=== PATIENT | female | born 1955 | race African-American/Black ===

== ENCOUNTER 2018-01-16 05:15 | Inpatient (IN) | payer MEDICARE, MEDICAID, SELFPAY ==
[2018-01-09 10:27] VITALS: BP 126/72; PULSE 93; RESP 18; TEMP 36.9; O2SAT 98; BMI 44.9
[2018-01-09 11:06] LABS: Hematocrit 38.8 % (37-47); Hemoglobin 12.4 g/dl (12.0-15.0); Mean Corpuscular Hgb 29.9 pg (27.0-32.0); Mean Corpuscular Volume 93.5 fL (81-99); Mean Platelet Vol. 10.5 fl (6.2-12.0); Platelet Count 270 K/mm3 (150-450); RBC Distribution Width CV 13.7 % (11.6-14.6); RBC Distribution Width SD 45.2 fl (35.1-43.9); Red Blood Count 4.15 M/mm3 (4.2-5.4); White Blood Count 9.5 K/mm3 (4.4-11.0)
[2018-01-09 11:08] LABS: Scan Indicated on CBC? Y/N NO
[2018-01-09 11:16] LABS: International Normalized Ratio 1.1; Prothrombin Time (Protime)PT. 13.3 SECONDS (11.7-14.9)
[2018-01-09 11:17] LABS: Partial Thromboplast Time 29.7 Seconds (24.1-36.2)
[2018-01-09 11:34] LABS: AST(SGOT) 11 U/L (15-37); Alanine Aminotransfer ALT/SGPT 19 U/L (13-56); Albumin, Serum 3.2 g/dL (3.2-5.0); Alkaline Phosphatase 98 U/L (45-117); Anion Gap 11 (5-15); BUN 10 mg/dL (7-18); BUN/Creat Ratio 14.1 RATIO (10-20); Bilirubin, Direct 0.11 mg/dL (0.00-0.30); Calcium,Total 9.1 mg/dL (8.5-10.1); Chloride 104 mmol/L (98-107); Creatinine, Serum 0.71 mg/dL (0.55-1.02); EST Glomerular Filtration Rate 88 mL/min (>60); Est Glom Filt Rate - Afr Amer 107 mL/min (>60); Estimated Creatinine Clearance 63.31 ml/min; Globulin 4.5 g/dL (2.2-4.2); Glucose 115 mg/dL (74-106); Potassium 3.2 mmol/L (3.5-5.1); Protein, Total 7.7 g/dL (6.4-8.2); Sodium Level 141 mmol/L (136-145)
[2018-01-16] VITALS (30 sets, daily range): BP systolic 83–149; BP diastolic 53–112; PULSE 85–124; RESP 14–20; TEMP 36.3–37.8; O2SAT 4–100; BMI 44.9
[2018-01-16] MEDS: Celecoxib 200 MG Capsule PO (06:17)
[2018-01-16] MEDS: oxyCODONE HCl Cr 10 MG Tablet PO ×2 (06:17→22:04)
--- NOTE | 2018-01-16 06:41 | RAD_ITS ---
STUDY: X-RAY - RIGHT KNEE REASON FOR EXAM: Female, 62 years old. The patient is status post total knee replacement. TECHNIQUE: AP and lateral view(s) of the knee. COMPARISON: None. FINDINGS: Normal visualized distal femur. Normal visualized proximal tibia and fibula. Normal proximal tibiofibular articulation. The patient is status post total knee replacement. There is good alignment. Postoperative soft tissue changes. RAD/Knee 1 or 2 Views IMPRESSION: Total knee replacement. There is good alignment. Postoperative soft tissue changes. Electronically Signed: Antony Gallo MD at 13:46 EST Tel [phone], Service support ,
--- NOTE | 2018-01-16 06:41 | RAD_ITS ---
STUDY: X-RAY - LEFT KNEE REASON FOR EXAM: Female, 62 years old. Total knee replacement. TECHNIQUE: AP and lateral view(s) of the knee. COMPARISON: None. FINDINGS: Normal visualized distal femur. Normal visualized proximal tibia and fibula. Normal proximal tibiofibular articulation. The patient is status post total knee replacement. There is good alignment. Postoperative soft tissue changes. RAD/Knee 1 or 2 Views IMPRESSION: Total knee replacement. There is good alignment. Postoperative soft tissue changes. Electronically Signed: Antony Gallo MD at 13:46 EST Tel [phone], Service support ,
--- NOTE | 2018-01-16 07:15 | KNEE_PTH ---
PATIENT: EMANUEL REED LOC: PCU U#:[id number] AGE/SX: 62/F ROOM: [facility] RE01/16/[address]: Dr. Oamr Rodriguez DO : 1955 BED: 1 DIS: 01/20/2018 SPEC #: [id number] RECD: 01/16/18 11:47 STATUS: JEREMIAH REUte #: [id number] STEPHEN: 01/16/18 07:[address]: Nathan Torres DEPT: SURGICAL PATHOLOGY RECD BY: Negro Ghosh ENTERED: 01/16/18 13:34 SP TYPE: TOTAL KNEE OTHR DR: Out of Town Doctor Tissues: A - Knee, NOS B - Knee, NOS Procedures: Decalcification bone/plaque Surgery Specimen Level IV HEADER OPERATION: Total knee replacement bilateral PRE-OP DIAGNOSIS: Primary osteoarthritis of both knees, chronic pain of both knees TISSUE SUBMITTED: A ? Bone and tissue from left knee, B - Bone and tissue from right knee MICROSCOPIC DIAGNOSIS A. Bone and soft tissue of left knee, total knee resection: Severe degenerative joint disease. B. Bone and soft tissue of right knee, total knee resection: Severe degenerative joint disease. Mild synovial hyperplasia. AM:rocco 01/19/18 MICROSCOPIC DESCRIPTION Slides are reviewed. GROSS DESCRIPTION A - Received is one container designated bone and soft tissue left knee. The specimen consists of multiple fragments of posadas-yellow bone measuring in aggregate 15 x 14 x 2 cm. Also in the specimen container are multiple fragments of yellow-white soft tissue measuring in aggregate 6 x 5 x 1.8 cm. A number of bony fragments contain articular surfaces consistent with tibial plateau and femoral condyle and displaying prominent osteophyte formation, eburnation, and bone erosion. [employer] sections are submitted in two cassettes as follows: 1 - soft tissue, 2 - bone after decalcification. B - Received is one container designated bone and soft tissue right knee. The specimen consists of multiple fragments of posadas-yellow bone measuring in aggregate 15 x 14 x 2 cm. Also in the specimen container are multiple fragments of yellow-white soft tissue measuring in aggregate 9 x 6 x 2 cm. A number of bony fragments contain articular surfaces consistent with tibial plateau and femoral condyle and displaying prominent osteophyte formation, eburnation, and bone erosion. [employer] sections are submitted in two cassettes as follows: 1 - soft tissue, 2 - bone after decalcification. / AM:rocco 01/16/18 TC:5 CPT: 89192 x2, 25028 x2
[2018-01-16] MEDS: Cefazolin 2 GM in 0.9% Normal Saline 100 ML IV (07:16)
--- NOTE | 2018-01-16 10:31 | PCM.IMDPSTOP ---
Immediate Post-Op Note Date of Procedure: 01/16/18 Primary Surgeon/Physician: Nathan Torres DO mold repair technician: Brent Perry Pre-Operative Diagnosis: Bilateral osteoarthritis of the knees. Post-Operative Diagnosis: Same as above Surgery/Procedure Performed:: Bilateral total knee arthroplasties-[employer] triathlon system Description of Surgical Findings:: See dictation Estimated Blood Loss: 50 Specimen's removed: Bone cuts Type of Anesthesia:: General ASA Class: ASA2 Mod Systematic Disease - Admit VTE Documentation VTE Present on Admission: No VTE Mechan Device Prophylaxis: SCD's, Knee High ANGELINA Hose VTE Pharm Prophylaxis ordered?: Yes
--- NOTE | 2018-01-16 10:32 | PCM.OPRPT ---
Report of Operation Date of Procedure: 01/16/18 Pre-Operative Diagnosis: Bilateral osteoarthritis of the knees. Post-Operative Diagnosis: Same as above Surgery/Procedure Performed:: Bilateral total knee arthroplasties-[employer] system Description of Surgical Findings:: 62-year-old female with bilateral osteoarthritis. Patient requested bilateral total knee arthroplasties. Patient has a history of being a Jehovah witness and did not want any form of blood transfusion. Patient had failed conservative measures and elected for operative intervention. She was counseled and consented for the aforementioned procedures. She was met in the holding area where the bilateral lower extremities were marked and identified by the with surgeon. Patient was taken to the operating room in satisfactory condition with somewhat to place to identify patient up procedure and limb. She received 2 g of Ancef at the beginning of the procedure. Patient also received 1 g of TXA. She underwent a successful intubation. Then she had bilateral tourniquets placed in the proximal thighs using standard technique. She was then prepped and draped in the usual fashion bilaterally. The right lower extremity was then protected during the remaining portion of the procedure to include padding on the down leg to prevent any pressure ulcers. We then turned our attention to the left lower extremity to be the initial procedure. Left lower extremity was elevated Esmarch used for exsanguination tourniquet was increased to 250 mmHg for roughly 70 minutes. Patient had a midline incision made 3 finger breaths above the patella down to the tibial tubercle. She underwent a subsequent medial parapatellar approach. Patient had significant osteoarthritis grossly around the knee joint. At that point time standard and anterior fat pad resection was undertaken. We then performed a standard posterior medial release. Please note the patient had about a 10-15? flexion contracture of that left knee. We then turned our attention to the distal femoral cut. Intramedullary guide was placed using standard technique. We used a 6? valgus cut we elected to take 10 mm off the distal femur secondary to the flexion contracture. Standard cut was performed. We then turned our attention to sizing. And establishing extra rotation. We used 3? of external rotation per standard technique using the trans-epicondylar axis. The patient sized to a size 3 component. #3 cutting guide guide was then placed in standard cuts were performed. At that point time we turned our attention to the tibia. Tibial guide was set in anticipation of using a CR component with a CS Luci. Tibial guide was placed using standard technique. We took 2 mm off the medial side. PCL was preserved. At that point time the leg was brought to full extension and the excess menisci were resected. The posterior medial and posterior lateral corner geniculate vessels were then cauterized. 9 mm spacer was introduced and we showed excellent mechanical alignment and stability at 0 30 and 90? of flexion. We had no flexion extension gaps. At that point time trial component for the femur and tibia were then placed using standard technique a 3 tibial tray was placed and seated using standard technique. We then turned our attention to sizing the patella. It measured roughly 20 mm in overall thickness. We took off 8 to main a 12 mm polyester patella thickness and then sized to a 32 patella button. Standard drill holes were then placed. At that point time the femoral component was extracted. Tibial tray was removed and we keel punched to the tibia in anticipation of using a press-fit component. This was done using again standard technique. The wound was then copiously irrigated remove the excess debris. At that point time a #3 press-fit tibial tray was then impacted using standard technique. A #3 femoral component was then seated using standard technique again as well with press-fit. We sized to a 9 Luci felt we had a little bit better overall extension flexion gap with an 11 mm Luci. At that point time the wound was copious irrigated remove the excess debris from the tray and 11 CS Luci was then impacted. We then turned our attention to the patella. I elected to cement her patella standard technique was performed and the patella was cemented and fixed in place and allowed to cure. During that time we copious irrigated remove the knee multiple times. We then performed our standard closure after injecting the soft tissues with 50 cc of a periarticular joint cocktail using standard technique. We then closed the knee at 30? knee flexion with #1 Vicryl using oirklu-bq-zszeu technique. The proximal third was then closed with the leg in full extension again using jgyero-ux-tiniz technique. The soft tissues were reapproximated with 2-0 Vicryl running subicular Monocryl and Dermabond. We then placed a sterile dressing and compressive wrap over. Please note the tourniquet was let down at 70 minutes during final closure. I was scrubbed and available all times obvious E during the procedure. We had no drains or complications. We then turned our attention to the right knee. Sterile dressing was removed. We placed one additional ChloraPrep stick to the knee and allowed it to dry. We then placed our soft tissue markers using standard technique. Ioban was then placed. We then prepped and draped in the usual fashion. The right lower extremity was elevated Esmarch used for exsanguination and tourniquet was increased to 250 mmHg again for roughly 75 total minute times. Patient had a similar operative procedure done to the left knee as to the right. Anterior fat pad resected. Posterior medial corner release. Intramedullary guide was introduced perform our distal femoral cut. The patient had a very small flexion contracture to the sides we only took off 8 mm but continued our 6? valgus cut. The size again to a size 3 femoral component performed standard cuts using standard technique. Turned our attention to the tibia. Took 2 mm off the distal femur using standard technique. Upon completion removal of the remnant menisci and cauterization of the corners and protection of the PCL. The patient was sized again to size 3 3 and a 9 mm spacer. With excellent mechanical alignment no instability at 0 30 and 90? of knee flexion. At that point time we turned our attention the patella again the patella sized to a size 32 which is equivalent to the contralateral side. We prepped it in anticipation of using a cemented technique. Wounds were then copiously irrigated using standard technique. At that point time the tibial tray was impacted in preparation of a press-fit technique. In the femur prepared as well. A #3 tibial tray was then impacted using standard technique. #3 component then seated using standard technique. We re-trialed to a 9 but I felt an 11 again was a little bit better in overall flexion-extension balance. We subsequently impacted after copious irrigation and 11 CS Luci using standard technique. Then turned our attention to the patella. Patella was then cemented using standard technique and allowed to cure. We had excellent mechanical alignment no patellar maltracking. The wound was then copiously irrigated and injected again with another 50 cc of the joint cocktail in the periarticular soft tissues. We then closed using #1 Vicryl in tufmss-nc-xkuyh technique initially in 30? knee flexion in the proximal third and full extension. Soft tissues then reapproximated with 2-0 Vicryl running subicular Monocryl and Dermabond. Tourniquet was let down after roughly 75 minutes of overall time. The patient was then dressed bilaterally in the usual fashion to include a Silverlon dressing and Angelo wraps. I was scrubbed and available time during our procedure. There is no drains or complications. Implants included the [place] triathlon press-fit system again on bilateral knees we used #3 femur's #3 tibias 11 mm CS Luci's and 32 million mm patella buttons. Patient will be admitted to floor for 24 hours of IV antibiotics appropriate IV and p.o. pain medication DVT prophylaxis to include SCDs teds and 325 p.o. twice daily of aspirin with GI prophylaxis. Any major issues please contact me. parts salvager: Brent Perry Type of Anesthesia:: General Specimen's removed: Bone cuts Estimated Blood Loss (mL): 50 Grafts/Implants Used: Striker triathlon press-fit - Complications None - Admit VTE Documentation VTE Present on Admission: No VTE Mechan Device Prophylaxis: SCD's, Knee High ANGELINA Hose VTE Pharm Prophylaxis ordered?: Yes
--- NOTE | 2018-01-16 10:44 | OP.PCM_ITS ---
Report of Operation Date of Procedure: 01/16/18 Pre-Operative Diagnosis: Bilateral osteoarthritis of the knees. Post-Operative Diagnosis: Same as above Surgery/Procedure Performed:: Bilateral total knee arthroplasties-[employer] system Description of Surgical Findings:: 62-year-old female with bilateral osteoarthritis. Patient requested bilateral total knee arthroplasties. Patient has a history of being a Jehovah witness and did not want any form of blood transfusion. Patient had failed conservative measures and elected for operative intervention. She was counseled and consented for the aforementioned procedures. She was met in the holding area where the bilateral lower extremities were marked and identified by the with surgeon. Patient was taken to the operating room in satisfactory condition with somewhat to place to identify patient up procedure and limb. She received 2 g of Ancef at the beginning of the procedure. Patient also received 1 g of TXA. She underwent a successful intubation. Then she had bilateral tourniquets placed in the proximal thighs using standard technique. She was then prepped and draped in the usual fashion bilaterally. The right lower extremity was then protected during the remaining portion of the procedure to include padding on the down leg to prevent any pressure ulcers. We then turned our attention to the left lower extremity to be the initial procedure. Left lower extremity was elevated Esmarch used for exsanguination tourniquet was increased to 250 mmHg for roughly 70 minutes. Patient had a midline incision made 3 finger breaths above the patella down to the tibial tubercle. She underwent a subsequent medial parapatellar approach. Patient had significant osteoarthritis grossly around the knee joint. At that point time standard and anterior fat pad resection was undertaken. We then performed a standard posterior medial release. Please note the patient had about a 10-15? flexion contracture of that left knee. We then turned our attention to the distal femoral cut. Intramedullary guide was placed using standard technique. We used a 6? valgus cut we elected to take 10 mm off the distal femur secondary to the flexion contracture. Standard cut was performed. We then turned our attention to sizing. And establishing extra rotation. We used 3? of external rotation per standard technique using the trans-epicondylar axis. The patient sized to a size 3 component. #3 cutting guide guide was then placed in standard cuts were performed. At that point time we turned our attention to the tibia. Tibial guide was set in anticipation of using a CR component with a CS Luci. Tibial guide was placed using standard technique. We took 2 mm off the medial side. PCL was preserved. At that point time the leg was brought to full extension and the excess menisci were resected. The posterior medial and posterior lateral corner geniculate vessels were then cauterized. 9 mm spacer was introduced and we showed excellent mechanical alignment and stability at 0 30 and 90? of flexion. We had no flexion extension gaps. At that point time trial component for the femur and tibia were then placed using standard technique a 3 tibial tray was placed and seated using standard technique. We then turned our attention to sizing the patella. It measured roughly 20 mm in overall thickness. We took off 8 to main a 12 mm polyester patella thickness and then sized to a 32 patella button. Standard drill holes were then placed. At that point time the femoral component was extracted. Tibial tray was removed and we keel punched to the tibia in anticipation of using a press-fit component. This was done using again standard technique. The wound was then copiously irrigated remove the excess debris. At that point time a #3 press- fit tibial tray was then impacted using standard technique. A #3 femoral component was then seated using standard technique again as well with press- fit. We sized to a 9 Luci felt we had a little bit better overall extension flexion gap with an 11 mm Luci. At that point time the wound was copious irrigated remove the excess debris from the tray and 11 CS Luci was then impacted. We then turned our attention to the patella. I elected to cement her patella standard technique was performed and the patella was cemented and fixed in place and allowed to cure. During that time we copious irrigated remove the knee multiple times. We then performed our standard closure after injecting the soft tissues with 50 cc of a periarticular joint cocktail using standard technique. We then closed the knee at 30? knee flexion with #1 Vicryl using yjpqfw-bw-oqino technique. The proximal third was then closed with the leg in full extension again using evwiqk-pe-ftzhq technique. The soft tissues were reapproximated with 2-0 Vicryl running subicular Monocryl and Dermabond. We then placed a sterile dressing and compressive wrap over. Please note the tourniquet was let down at 70 minutes during final closure. I was scrubbed and available all times obvious E during the procedure. We had no drains or complications. We then turned our attention to the right knee. Sterile dressing was removed. We placed one additional ChloraPrep stick to the knee and allowed it to dry. We then placed our soft tissue markers using standard technique. Ioban was then placed. We then prepped and draped in the usual fashion. The right lower extremity was elevated Esmarch used for exsanguination and tourniquet was increased to 250 mmHg again for roughly 75 total minute times. Patient had a similar operative procedure done to the left knee as to the right. Anterior fat pad resected. Posterior medial corner release. Intramedullary guide was introduced perform our distal femoral cut. The patient had a very small flexion contracture to the sides we only took off 8 mm but continued our 6? valgus cut. The size again to a size 3 femoral component performed standard cuts using standard technique. Turned our attention to the tibia. Took 2 mm off the distal femur using standard technique. Upon completion removal of the remnant menisci and cauterization of the corners and protection of the PCL. The patient was sized again to size 3 3 and a 9 mm spacer. With excellent mechanical alignment no instability at 0 30 and 90? of knee flexion. At that point time we turned our attention the patella again the patella sized to a size 32 which is equivalent to the contralateral side. We prepped it in anticipation of using a cemented technique. Wounds were then copiously irrigated using standard technique. At that point time the tibial tray was impacted in preparation of a press-fit technique. In the femur prepared as well. A #3 tibial tray was then impacted using standard technique. #3 component then seated using standard technique. We re-trialed to a 9 but I felt an 11 again was a little bit better in overall flexion-extension balance. We subsequently impacted after copious irrigation and 11 CS Luci using standard technique. Then turned our attention to the patella. Patella was then cemented using standard technique and allowed to cure. We had excellent mechanical alignment no patellar maltracking. The wound was then copiously irrigated and injected again with another 50 cc of the joint cocktail in the periarticular soft tissues. We then closed using #1 Vicryl in gqgopc-ds-nhqvi technique initially in 30? knee flexion in the proximal third and full extension. Soft tissues then reapproximated with 2-0 Vicryl running subicular Monocryl and Dermabond. Tourniquet was let down after roughly 75 minutes of overall time. The patient was then dressed bilaterally in the usual fashion to include a Silverlon dressing and Angelo wraps. I was scrubbed and available time during our procedure. There is no drains or complications. Implants included the [place] triathlon press-fit system again on bilateral knees we used #3 femur's #3 tibias 11 mm CS Luci's and 32 million mm patella buttons. Patient will be admitted to floor for 24 hours of IV antibiotics appropriate IV and p.o. pain medication DVT prophylaxis to include SCDs teds and 325 p.o. twice daily of aspirin with GI prophylaxis. Any major issues please contact me. business supervisor: Brent Perry Type of Anesthesia:: General Specimen's removed: Bone cuts Estimated Blood Loss (mL): 50 Grafts/Implants Used: Striker triathlon press-fit - Complications None - Admit VTE Documentation VTE Present on Admission: No VTE Mechan Device Prophylaxis: SCD's, Knee High ANGELINA Hose VTE Pharm Prophylaxis ordered?: Yes
--- NOTE | 2018-01-16 10:49 | CASEMGMT ---
Received call from Dr. Torres that patient is wanting to discharge to TCU when appropriate. RN CM updated MICAH Montes regarding request for TCU.
[2018-01-16] MEDS: Ketorolac 15 MG/ML Vial IV (11:23)
[2018-01-16] MEDS: Ipratropium/Albuterol Sulfate 3 ML AMPUL.NEB INHALATION (11:49)
[2018-01-16] MEDS: Lactated Ringers 1,000 ML 75 ML IV (16:18)
[2018-01-16] MEDS: Cefazolin 1 GM/50 ML BAG IV ×2 (16:50→22:38)
[2018-01-16] MEDS: 0.9% NaCl Peripheral Flush Adult/Peds IV (18:22)
[2018-01-16] MEDS: Acetaminophen 500 MG Tablet 1000 MG PO (22:04)
[2018-01-16] MEDS: Senna/Docusate Sodium 1 Tablet 2 TABLET PO (22:05)
[2018-01-17] VITALS (7 sets, daily range): BP systolic 103–161; BP diastolic 58–78; PULSE 105–128; RESP 14–16; TEMP 36.1–37.7; O2SAT 92–98
[2018-01-17 05:48] LABS: Hematocrit 31.5 % (37-47); Hemoglobin 9.7 g/dl (12.0-15.0); Mean Corp Hgb Conc 30.8 g/gl (32-36); Mean Corpuscular Hgb 29.7 pg (27.0-32.0); Mean Corpuscular Volume 96.3 fL (81-99); Platelet Count 177 K/mm3 (150-450); RBC Distribution Width CV 14.2 % (11.6-14.6); RBC Distribution Width SD 49.5 fl (35.1-43.9); Red Blood Count 3.27 M/mm3 (4.2-5.4); White Blood Count 9.8 K/mm3 (4.4-11.0)
[2018-01-17 06:06] LABS: Anion Gap 8 (5-15); BUN 9 mg/dL (7-18); BUN/Creat Ratio 14.5 RATIO (10-20); Calcium,Total 8.2 mg/dL (8.5-10.1); Chloride 104 mmol/L (98-107); Creatinine, Serum 0.62 mg/dL (0.55-1.02); EST Glomerular Filtration Rate 103 mL/min (>60); Est Glom Filt Rate - Afr Amer 124 mL/min (>60); Glucose 114 mg/dL (74-106); Potassium 3.6 mmol/L (3.5-5.1); Sodium Level 142 mmol/L (136-145)
[2018-01-17 06:16] LABS: Scan Indicated on CBC? Y/N NO
[2018-01-17] MEDS: Lactated Ringers 1,000 ML 75 ML IV (06:24)
[2018-01-17] MEDS: Acetaminophen 500 MG Tablet 1000 MG PO ×3 (06:24→21:58)
--- NOTE | 2018-01-17 07:44 | PCM.PN.ORT ---
Subjective: Postop day 1 status post bilateral total knee arthroplasties. Patient with moderate pain issues at this time. Patient was unable to have a spinal anesthesia and did not have any of the perioperative blocks. Made an attempt to use of OxyIR but does not seem to be tolerating well. Patient's family is concerned about her being lethargic which may be a result of her pain medication to try to control her at this time. Patient reportedly has better outcomes with Dilaudid which we will convert to at this time. Also told family that I would place a pain management consult. Patient has not been up to chair at this time. Still laying flat in bed and needs to be mobilized little bit better. Signs reviewed. Patient had low-grade temps probably most likely postop atelectasis. Laboratory values appear stable. Patient is a history of being a Jehovah witness. - Physical Exam General: Alert, Oriented x3, Cooperative Musculoskeletal: - - Patient remains distally neurovascular intact. EHL anterior gastrocsoleus peroneals quads hamstrings appear to be 5 out of 5. No calf pain negative Homans. SCDs teds in place. X-rays reviewed show hardware otherwise well seated well-placed. Vital Signs Temp Pulse Resp BP Pulse Ox 99.8 F H 105 H 14 110/59 L 92 01/17/18 05:48 01/17/18 05:48 01/17/18 05:48 01/17/18 05:48 01/17/18 05:48 Oxygen Flow Rate (L/min) 3 Oxygen Delivery Method Nasal Cannula Weight: 245 lb 5.992 oz Body Mass Index (BMI) 44.9 Intake and Output for Last 24 Hours 01/15/18 01/16/18 01/17/18 23:59 23:59 23:59 Intake Total 3517 / 3517 726 / 726 Output Total 400 / 400 Balance 3517 / 3517 326 / 326 Laboratory Tests Past 24 Hrs 01/17/18 01/17/18 05:20 05:20 WBC 9.8 RBC 3.27 L Hgb 9.7 L Hct 31.5 L MCV 96.3 MCH 29.7 MCHC 30.8 L RDW 14.2 RDW Differential 49.5 H Plt Count 177 MPV 10.0 Sodium 142 Potassium 3.6 Chloride 104 Carbon Dioxide 30.0 Anion Gap 8 BUN 9 Creatinine 0.62 Estim Creat Clear Calc 72.50 Est GFR (MDRD) Af Amer 124 Est GFR (MDRD) Non-Af 103 BUN/Creatinine Ratio 14.5 Glucose 114 H Calcium 8.2 L Assessment/Plan Assessment: Postop day 1 status post bilateral total knee arthroplasties. Pain management issues at this time. Plan: Case management has been consulted to get patient placed in the transitional care unit. I will consult Dr. Franklin from pain management in order to help manage her pain more effectively. At this point I am going to go ahead and DC the OxyIR and the OxyContin. I will place the patient on Dilaudid 2-4 mg p.o. every 4 hours. Encourage patient sitting upright in the bed. This did not help her overall pulmonary function. She needs to be using the incentive spirometer more aggressively. I do not want the patient getting pneumonia as result of respiratory depression associated with narcotic usage. The patient needs to be sitting in a chair at some point today and bending her knees. It is a race between her gaining motion. I had rather than have the patient in pain and moving rather than being lethargic and not moving. We will continue to follow at this time. The patient remains lethargic I will consider consultation by medicine.
[2018-01-17] MEDS: HYDROmorphone 1 MG/ML Syringe IV (08:26)
[2018-01-17] MEDS: 0.9% NaCl Peripheral Flush Adult/Peds IV (08:26)
[2018-01-17] MEDS: Multivitamins,Therapeutic Tablet 1 TABLET PO (09:03)
[2018-01-17] MEDS: Ascorbic Acid 500 MG Tablet 1000 MG PO (09:03)
[2018-01-17] MEDS: Gabapentin 300 MG Capsule PO ×3 (09:04→21:58)
[2018-01-17] MEDS: Iron Polysaccharide Complex 150 MG CAPSULE PO (09:05)
[2018-01-17] MEDS: Aspirin 325 MG Tablet PO ×2 (09:05→21:57)
[2018-01-17] MEDS: HYDROmorphone 2 MG TABLET PO (09:06)
--- NOTE | 2018-01-17 09:20 | CASEMGMT ---
Social Work Note Call placed to [facility] to confirm that there is a bed for the pt. Anticipate discharge Monday, 01/19. Transfer to ECF forms on chart for physician to complete. SW to continue to follow and assist with discharge planning. Plan: TCU for rehabilitation. Mary Montes, INSPECTOR PLATING, [employer]OCOA BEAN CLEANER
--- NOTE | 2018-01-17 10:10 | CASEMGMT ---
Social Work Note Face to face with the pt to update on bed availability on TCU and anticipated discharge date of Monday, 01/19. Plan: TCU for rehabilitation. Mary Montes MSW, SUPERVISOR SHEET MANUFACTURING
[2018-01-17] MEDS: Escitalopram Oxalate 10 MG Tablet PO (10:55)
[2018-01-17] MEDS: Famotidine 20 MG Tablet PO (10:55)
[2018-01-17] MEDS: Senna/Docusate Sodium 1 Tablet 2 TABLET PO ×2 (10:55→21:57)
[2018-01-17] MEDS: hydroCHLOROthiazide 25 MG Tablet PO (10:55)
--- NOTE | 2018-01-17 14:21 | NURSING ---
Student nurse documentation reviewed by this RN.
[2018-01-17] MEDS: diazePAM 2 MG Tablet PO (15:14)
--- NOTE | 2018-01-17 15:31 | PCA ---
PATIENT PUT CALL LIGHT ON STATING SHE WANTED TO GO FROM THE CHAIR BACK TO BED TO REST. FAMILY WAS IN WITH PATIENT. I CALLED THE OTHER COMPUTER SYSTEMS ARCHITECT DIMITRIS TO COME HELP THAT SHE WAS A MAX X2 ASSIST. WE HAD PATIENT SCOOT HER BOTTOM UP TO FRONT OF CHAIR. HAD ONE COMPUTER SYSTEMS ARCHITECT ON ONE SIDE AND THE OTHER ON THE OTHER SIDE. TOLD PATIENT TO USE HER ARMS TO PUSH HERSELF OUT OF CHAIR ONCE SHE STOOD UP WE TOLD HER TO GRAB AHOLD OF THE WALKER. TOLD THE PATIENT THAT SHE NEEDED TO TRY TO STAND UP STRAIGHT SHE COULD. PATIENT KEPT LEANING OVER ON HER WALKER WITH HER FOREARMS WHERE HER HANDS SHOULD OF WENT WITH HER BOTTOM STICKING OUT. WE BOTH INFORMED HER THAT SHE NEEDED TO STAND UP STRAIGHT SHE COULD AND NOT LEAN ON HER WALKER LIKE THAT CAUSE IT COULD CAUSE HER TO FALL. TOLD HER THAT SHE NEEDED TO TAKE A STEP TO THE RIGHT SIDE AND THEN STEP WITH HER OTHER LEG THE SAME WAY TO MOVE OVER TO THE BED. THE PATIENT DID THAT BUT THEN LEANED ON HER WALKER AGAIN AND WASN'T FOLLOWING INSTRUCTIONS. I MYSELF WHILE DIMITRIS WAS HOLDING ONTO HER I SCOOTED THE BED CLOSE I COULD TO HER BOTTOM FOR HER TO SIT THAT THE PATIENT FAILED TO FOLLOW INSTRUCTIONS AND WAS GETTING VERY TIRED. ONCE WE GOT HER TO SIT ON THE BED I ASSISTED HER BACK AND SHOULDERS AND DIMITRIS GRABBED BOTH OF HER LEGS AND SWING HER UP IN THE BED.. THEN HAD THE PATIENT GRAB A HOLD OF THE TRAPEZE BAR AND STRAIGHTEN HER UPPER HALF IN THE BED WHILE WE STRAIGHTENED UP HER LEGS. MADE SURE HER LEGS WERE NOT TURNING OUTWARD AND MADE HER COMFORTABLE. FAMILY TOLD US THAT WENT TOTALLY DIFFERENT THEN THERAPY AND THAT THEY DIDNT LIKE THE WAY WE DID IT. DIMITRIS EXPLAIGNED TO THEM THAT WE DO IT THE SAME WAY WITH EVERYONE. I LEFT THE ROOM TO LET THE NURSE KAYLAN KNOW SHE NEEDED PAIN MEDS. AFTER I LEFT THE ROOM DIMITRIS PUT HER ICE PACKS ON THE LEGS AND FAMILY TOLD HER THAT THEY DIDNT WANT US AIDES TO GET HER OUT OF THE BED AGAIN ONLY THERAPY. CAUSE WE DIDNT DO IT THE WAY THERAPY DID.
[2018-01-17] MEDS: oxyCODONE 5 MG Tablet PO ×2 (16:28→21:58)
[2018-01-18] VITALS (16 sets, daily range): BP systolic 76–124; BP diastolic 49–64; PULSE 120–137; RESP 18–24; TEMP 36.7–38.3; O2SAT 92–97
--- NOTE | 2018-01-18 02:24 | RAD_ITS ---
STUDY: X-RAY CHEST REASON FOR EXAM: Female, 62 years old. Fever TECHNIQUE: Single AP portable view of the chest. COMPARISON: None. FINDINGS: Mild patchy airspace opacification at the right lung base, partially obscuring the right hemidiaphragm. The lungs are clear and expanded. There is no demonstrated pleural abnormality. Normal size heart. Normal mediastinum and navin. Normal visualized pulmonary arteries. Normal visualized aortic arch and descending thoracic aorta. Normal visualized thoracic spine. Normal visualized ribs, clavicles, and shoulders. There is no demonstrated abnormality of the visualized soft tissue structures of the upper abdomen. RAD/Chest 1 View (Portable) IMPRESSION: Right basilar atelectasis versus infiltrate. Electronically Signed: David Cobb MD at 3:00 EST Tel , Service support ,
--- NOTE | 2018-01-18 02:49 | PCM.CONS.GEN ---
Problem List (1) Osteoarthritis Status: Chronic (2) Status post bilateral knee replacements Status: Acute (3) Depression Status: Chronic (4) Hypertension Status: Chronic Reason for Consult Date of Consultation: 01/18/18 Reason for Consultation: Fever, tachycardia. This was an urgent consultation, physician who was on-call for the primary admitting physician did not call me although it was an urgent consultation. History of Present Illness: The patient is a 62 year old F with past medical history as mentioned above who underwent elective bilateral total knee arthroplasties on January 16, 2018 for osteoarthritis of the both knees and I am seeing this patient in consultation for fever and tachycardia. According to nursing staff, patient's heart rate has been up to 130s and she has been having spikes of low-grade fever. Patient seen and examined. Her only complaint was bilateral knee pain secondary to surgery and she was not able to provide details about that pain. She is sleepy but easily arousable and she was oriented. She denied sore throat, nasal sinus congestion. She denied cough or sputum production. She denied abdominal pain, nausea or vomiting. Denied constipation or diarrhea. She denies urinary symptoms. She has history of hypertension and he has been on HCTZ which seemed to be under control. She has history of depression and she has been on Lexapro and Effexor. She had a history of osteoarthritis, was on Voltaren twice daily before her surgery and now she is status post bilateral knee arthroplasties as mentioned above. At this time, she is tachycardic, temperature 99.9?F, blood pressure stable, pulse ox is 94% on 3 L. Her routine blood work from January 17, 2018 reviewed and was remarkable for acute anemia likely because of blood loss during surgery and hemodilution. Stat CBC, BMP, chest x-ray ordered. CBC revealed leukocytosis and anemia. BMP was unremarkable. Chest x-ray revealed possible right lung base infiltrate. Her lactic acid was normal. She will be treated as a case of probable community-acquired pneumonia because this pneumonia developed within 48 hours of admission. Past Medical History Past Medical History (Chronic Problems): Chronic Problems (Last Updated 12/25/17 @ 16:12 by Mario Chatterjee) Osteoarthritis (Chronic) Depression (Chronic) Hypertension (Chronic) Allergies No Known Allergies Allergy (Verified 01/09/18 10:23) Home Medications: Ambulatory Orders Medication Instructions Recorded Hydrochlorothiazide [Hctz] 25 mg PO DAILY 09/28/17 Venlafaxine XR [Effexor Xr] 75 mg PO DAILY 09/28/17 Venlafaxine XR [Effexor Xr] 150 mg PO DAILY 09/28/17 Diclofenac [Voltaren] 75 mg PO BIDCM 01/09/18 Escitalopram Oxalate [Lexapro] 10 mg PO DAILY 01/09/18 potassium chloride 20 mEq oral 20 meq PO BID #14 packet 01/10/18 packet Surgical History: total knee arthroplasty Psychiatric History: No pertinent psych hx WOOL PULLER History: No pertinent WOOL PULLER history Lives: Spouse/ Significant Other Smoking Status: Never smoker Alcohol: None Drugs: None - *Family History Paternal History Items: Heart Disease Sibling History Items: Cancer, Heart Disease Review of Systems Constitutional: Denies: Anorexia, Chills, Fever, Weakness Eyes: Denies: Blurred vision, Double vision, Drainage, Redness HEENT: Denies: Difficulty Hearing, Ear Pain, Eye Pain, Nasal Congestion, Sore Throat Cardiovascular: Denies: Chest Pain, Chest Pressure, Edema, Heaviness, Palpitations, Syncope Respiratory: Denies: Cough, Pleuritic Pain, Shortness of Breath, Sputum production, Wheezing Gastrointestinal: Denies: Abdominal Pain, Constipation, Diarrhea, Nausea, Vomiting Genitourinary: Denies: Dysuria, Frequency, Hematuria Musculoskeletal: Reports: Joint Pain. Denies: Arm Pain, Back Pain, Foot Pain Skin: Denies: Dryness, Rash Neurological: Denies: Balance problems, Double vision, Change in Speech, Focal weakness, Headaches, Incoordination Psychiatric: Denies: Anxiety, Depression Endocrine: Denies: Change in Body Habitus, Polydipsia Patient Problems: Active and Suspected Problems (Last Updated 12/25/17 @ 16:12 by Mario Chatterjee) Status post bilateral knee replacements (Acute) - Physical Exam General: Alert, Cooperative, No apparent distress, Lethargic HEENT: Atraumatic, PERRLA, EOMI Oral: No Gingival or Mucosal Lesions/ Ulcerations, Dry Mucosa Neck: Supple, No JVD, Negative Carotid Bruits, Trachea Midline, Thyroid Normal Size and Texture Lungs: Clear to auscultation, No wheeze, No rales, Diminished, - - Decreased breath sounds bilateral, more at the bases, rhonchi. Cardiovascular: Regular rate, Regular Rhythm, Normal S1, Normal S2, PMI Normal, Tachycardic Abdomen: Bowel Sounds Present, Soft, Non Tender, Non-Distended, No Hepato-splenomegaly, Obese Extremities: No clubbing, No cyanosis, No edema Skin: No rashes, No breakdown Lymphatic: No Cervical, Supraclavicular, or Inguinal Adenopathy Neurological: Cranial nerves II-XII grossly intact, Neuro grossly intact Psych/Mental Status: Flat Affect Vital Signs Temp Pulse Resp BP Pulse Ox 99.9 F H 133 H 24 H 121/61 H 94 01/18/18 01:40 01/18/18 01:40 01/18/18 01:40 01/18/18 01:40 01/18/18 01:40 Oxygen Flow Rate (L/min) 3 Oxygen Delivery Method Nasal Cannula Weight: 245 lb 5.992 oz Body Mass Index (BMI) 44.9 Intake and Output for Last 24 Hours 01/16/18 01/17/18 01/18/18 23:59 23:59 23:59 Intake Total 3517 / 3517 726 / 726 100 / 100 Output Total 400 / 400 Balance 3517 / 3517 326 / 326 100 / 100 Laboratory Tests Past 24 Hrs 01/17/18 01/17/18 05:20 05:20 WBC 9.8 RBC 3.27 L Hgb 9.7 L Hct 31.5 L MCV 96.3 MCH 29.7 MCHC 30.8 L RDW 14.2 RDW Differential 49.5 H Plt Count 177 MPV 10.0 Sodium 142 Potassium 3.6 Chloride 104 Carbon Dioxide 30.0 Anion Gap 8 BUN 9 Creatinine 0.62 Estim Creat Clear Calc 72.50 Est GFR (MDRD) Af Amer 124 Est GFR (MDRD) Non-Af 103 BUN/Creatinine Ratio 14.5 Glucose 114 H Calcium 8.2 L Laboratory Tests 01/18/18 01/18/18 01/18/18 Range/Units 02:50 02:50 02:50 WBC 15.5 H (4.4-11.0) K/mm3 RBC 3.06 L (4.2-5.4) M/mm3 Hgb 9.4 L (12.0-15.0) g/dl Hct 29.6 L (37-47) % MCV 96.7 (81-99) fL MCH 30.7 (27.0-32.0) pg MCHC 31.8 L (32-36) g/gl RDW 13.7 (11.6-14.6) % RDW Differential 45.3 H (35.1-43.9) fl Plt Count 170 (150-450) K/mm3 MPV 10.2 (6.2-12.0) fl Immature Gran % (Auto) 0.600 (0.0-0.9) % Neut % (Auto) 72.5 H (47-70) % Lymph % (Auto) 12.3 L (19-41) % [place] % (Auto) 10.6 H (0-10) % Eos % (Auto) 3.9 (0-5) % Baso % (Auto) 0.1 (0-1) % Absolute Neuts (auto) 11.2 H (2.0-7.7) X10^3/uL Absolute Lymphs (auto) 1.91 (0.83-4.51) X10^3/ul Total Counted Not Reportable Differential Comment SCANNED Diff Path Review March Sodium 137 (136-145) mmol/L Potassium 3.7 (3.5-5.1) mmol/L Chloride 102 (98-107) mmol/L Carbon Dioxide 30.0 (21.0-32.0) mmol/L Anion Gap 5 (5-15) BUN 9 (7-18) mg/dL Creatinine 0.70 (0.55-1.02) mg/dL Estim Creat Clear Calc 64.22 ml/min Est GFR (MDRD) Af Amer 108 (>60) mL/min Est GFR (MDRD) Non-Af 89 (>60) mL/min BUN/Creatinine Ratio 12.8 (10-20) RATIO Glucose 128 H (74-106) mg/dL Lactic Acid 1.1 (0.4-2.0) mmol/L Calcium 8.5 (8.5-10.1) mg/dL 01/17/18 01/17/18 Range/Units 05:20 05:20 WBC 9.8 (4.4-11.0) K/mm3 RBC 3.27 L (4.2-5.4) M/mm3 Hgb 9.7 L (12.0-15.0) g/dl Hct 31.5 L (37-47) % MCV 96.3 (81-99) fL MCH 29.7 (27.0-32.0) pg MCHC 30.8 L (32-36) g/gl RDW 14.2 (11.6-14.6) % RDW Differential 49.5 H (35.1-43.9) fl Plt Count 177 (150-450) K/mm3 MPV 10.0 (6.2-12.0) fl Immature Gran % (Auto) (0.0-0.9) % Neut % (Auto) (47-70) % Lymph % (Auto) (19-41) % [place] % (Auto) (0-10) % Eos % (Auto) (0-5) % Baso % (Auto) (0-1) % Absolute Neuts (auto) (2.0-7.7) X10^3/uL Absolute Lymphs (auto) (0.83-4.51) X10^3/ul Total Counted Differential Comment Diff Path Review Sodium 142 (136-145) mmol/L Potassium 3.6 (3.5-5.1) mmol/L Chloride 104 (98-107) mmol/L Carbon Dioxide 30.0 (21.0-32.0) mmol/L Anion Gap 8 (5-15) BUN 9 (7-18) mg/dL Creatinine 0.62 (0.55-1.02) mg/dL Estim Creat Clear Calc 72.50 ml/min Est GFR (MDRD) Af Amer 124 (>60) mL/min Est GFR (MDRD) Non-Af 103 (>60) mL/min BUN/Creatinine Ratio 14.5 (10-20) RATIO Glucose 114 H (74-106) mg/dL Lactic Acid (0.4-2.0) mmol/L Calcium 8.2 L (8.5-10.1) mg/dL Assessment/Plan Active and Suspected Problems (Last Updated 12/25/17 @ 16:12 by Mario Chatterjee) Status post bilateral knee replacements (Acute) This is a 62 years old female patient admitted for elective bilateral knee arthroplasties for bilateral knee osteoarthritis and I was consulted to see the patient urgently for fever and tachycardia although the physician who was on-call for the primary admitting physician did not call me for this consult. #1 probable right lower lung community-acquired pneumonia/sepsis: This is based on fever, tachycardia, leukocytosis and suspected infiltrate on chest x-ray. She is tachycardic, having spikes of low-grade fever, blood pressure stable. Lactic acid was normal. Plan: Start IV Levaquin, add IV Zosyn to cover for gram-negative organisms, albuterol every 4 hours, incentive spirometer, urinalysis, urine culture. #2 status post bilateral knee arthroplasties: That was done for bilateral knee osteoarthritis, postoperative day 2. Patient complains of bilateral knee pain. She is on IV hydromorphone as well as OxyIR as needed for pain. Orthopedic surgery is managing. #3 postoperative anemia: Her baseline hemoglobin is normal. Hemoglobin came down from 12.4 g/dL down to 9.7 g/dL. At this time, no evidence of active bleeding. This is likely because of blood loss during surgery and hemodilution. Plan to monitor CBC. #4 hypertension: Blood pressure stable, continue HCTZ. #5 depression: Continue Lexapro. #6 DVT prophylaxis: She is on full dose of aspirin twice daily. This note was generated with iLive dictation software. It may contain incorrect words, spelling, and punctuation that were not noted in checking the note before signing. Code Visit Inpatient E&M: 79754 Init Hosp L2
--- NOTE | 2018-01-18 02:55 | CON.PCM_ITS ---
Problem List (1) Osteoarthritis Status: Chronic (2) Status post bilateral knee replacements Status: Acute (3) Depression Status: Chronic (4) Hypertension Status: Chronic Reason for Consult Date of Consultation: 01/18/18 Reason for Consultation: Fever, tachycardia. This was an urgent consultation, physician who was on-call for the primary admitting physician did not call me although it was an urgent consultation. History of Present Illness: The patient is a 62 year old F with past medical history as mentioned above who underwent elective bilateral total knee arthroplasties on January 16, 2018 for osteoarthritis of the both knees and I am seeing this patient in consultation for fever and tachycardia. According to nursing staff, patient's heart rate has been up to 130s and she has been having spikes of low-grade fever. Patient seen and examined. Her only complaint was bilateral knee pain secondary to surgery and she was not able to provide details about that pain. She is sleepy but easily arousable and she was oriented. She denied sore throat, nasal sinus congestion. She denied cough or sputum production. She denied abdominal pain, nausea or vomiting. Denied constipation or diarrhea. She denies urinary symptoms. She has history of hypertension and he has been on HCTZ which seemed to be under control. She has history of depression and she has been on Lexapro and Effexor. She had a history of osteoarthritis, was on Voltaren twice daily before her surgery and now she is status post bilateral knee arthroplasties as mentioned above. At this time, she is tachycardic, temperature 99.9?F, blood pressure stable, pulse ox is 94% on 3 L. Her routine blood work from January 17, 2018 reviewed and was remarkable for acute anemia likely because of blood loss during surgery and hemodilution. Stat CBC, BMP, chest x-ray ordered. CBC revealed leukocytosis and anemia. BMP was unremarkable. Chest x-ray revealed possible right lung base infiltrate. Her lactic acid was normal. She will be treated as a case of probable community-acquired pneumonia because this pneumonia developed within 48 hours of admission. Past Medical History Past Medical History (Chronic Problems): Chronic Problems (Last Updated 12/25/17 @ 16:12 by Mario Chatterjee) Osteoarthritis (Chronic) Depression (Chronic) Hypertension (Chronic) Allergies No Known Allergies Allergy (Verified 01/09/18 10:23) Home Medications: Ambulatory Orders Medication Instructions Recorded Hydrochlorothiazide [Hctz] 25 mg PO DAILY 09/28/17 Venlafaxine XR [Effexor Xr] 75 mg PO DAILY 09/28/17 Venlafaxine XR [Effexor Xr] 150 mg PO DAILY 09/28/17 Diclofenac [Voltaren] 75 mg PO BIDCM 01/09/18 Escitalopram Oxalate [Lexapro] 10 mg PO DAILY 01/09/18 potassium chloride 20 mEq oral 20 meq PO BID #14 packet 01/10/18 packet Surgical History: total knee arthroplasty Psychiatric History: No pertinent psych hx [employer]ELOP[employer] History: No pertinent [employer]ELOP[employer] history Lives: Spouse/ Significant Other Smoking Status: Never smoker Alcohol: None Drugs: None - *Family History Paternal History Items: Heart Disease Sibling History Items: Cancer, Heart Disease Review of Systems Constitutional: Denies: Anorexia, Chills, Fever, Weakness Eyes: Denies: Blurred vision, Double vision, Drainage, Redness HEENT: Denies: Difficulty Hearing, Ear Pain, Eye Pain, Nasal Congestion, Sore Throat Cardiovascular: Denies: Chest Pain, Chest Pressure, Edema, Heaviness, Palpitations, Syncope Respiratory: Denies: Cough, Pleuritic Pain, Shortness of Breath, Sputum production, Wheezing Gastrointestinal: Denies: Abdominal Pain, Constipation, Diarrhea, Nausea, Vomiting Genitourinary: Denies: Dysuria, Frequency, Hematuria Musculoskeletal: Reports: Joint Pain. Denies: Arm Pain, Back Pain, Foot Pain Skin: Denies: Dryness, Rash Neurological: Denies: Balance problems, Double vision, Change in Speech, Focal weakness, Headaches, Incoordination Psychiatric: Denies: Anxiety, Depression Endocrine: Denies: Change in Body Habitus, Polydipsia Patient Problems: Active and Suspected Problems (Last Updated 12/25/17 @ 16:12 by Mario Chatterjee) Status post bilateral knee replacements (Acute) - Physical Exam General: Alert, Cooperative, No apparent distress, Lethargic HEENT: Atraumatic, PERRLA, EOMI Oral: No Gingival or Mucosal Lesions/ Ulcerations, Dry Mucosa Neck: Supple, No JVD, Negative Carotid Bruits, Trachea Midline, Thyroid Normal Size and Texture Lungs: Clear to auscultation, No wheeze, No rales, Diminished, - - Decreased breath sounds bilateral, more at the bases, rhonchi. Cardiovascular: Regular rate, Regular Rhythm, Normal S1, Normal S2, PMI Normal, Tachycardic Abdomen: Bowel Sounds Present, Soft, Non Tender, Non-Distended, No Hepato- splenomegaly, Obese Extremities: No clubbing, No cyanosis, No edema Skin: No rashes, No breakdown Lymphatic: No Cervical, Supraclavicular, or Inguinal Adenopathy Neurological: Cranial nerves II-XII grossly intact, Neuro grossly intact Psych/Mental Status: Flat Affect Vital Signs Temp Pulse Resp BP Pulse Ox 99.9 F H 133 H 24 H 121/61 H 94 01/18/18 01:40 01/18/18 01:40 01/18/18 01:40 01/18/18 01:40 01/18/18 01:40 Oxygen Flow Rate (L/min) 3 Oxygen Delivery Method Nasal Cannula Weight: 245 lb 5.992 oz Body Mass Index (BMI) 44.9 Intake and Output for Last 24 Hours 01/16/18 01/17/18 01/18/18 23:59 23:59 23:59 Intake Total 3517 / 3517 726 / 726 100 / 100 Output Total 400 / 400 Balance 3517 / 3517 326 / 326 100 / 100 Laboratory Tests Past 24 Hrs 01/17/18 01/17/18 05:20 05:20 WBC 9.8 RBC 3.27 L Hgb 9.7 L Hct 31.5 L MCV 96.3 MCH 29.7 MCHC 30.8 L RDW 14.2 RDW Differential 49.5 H Plt Count 177 MPV 10.0 Sodium 142 Potassium 3.6 Chloride 104 Carbon Dioxide 30.0 Anion Gap 8 BUN 9 Creatinine 0.62 Estim Creat Clear Calc 72.50 Est GFR (MDRD) Af Amer 124 Est GFR (MDRD) Non-Af 103 BUN/Creatinine Ratio 14.5 Glucose 114 H Calcium 8.2 L Laboratory Tests 3 01/18/18 01/18/18 01/18/18 Range/Units 02:50 02:50 02:50 WBC 15.5 H (4.4-11.0) K/mm3 RBC 3.06 L (4.2-5.4) M/mm3 Hgb 9.4 L (12.0-15.0) g/dl Hct 29.6 L (37-47) % MCV 96.7 (81-99) fL MCH 30.7 (27.0-32.0) pg MCHC 31.8 L (32-36) g/gl RDW 13.7 (11.6-14.6) % RDW Differential 45.3 H (35.1-43.9) fl Plt Count 170 (150-450) K/mm3 MPV 10.2 (6.2-12.0) fl Immature Gran % (Auto) 0.600 (0.0-0.9) % Neut % (Auto) 72.5 H (47-70) % Lymph % (Auto) 12.3 L (19-41) % [place] % (Auto) 10.6 H (0-10) % Eos % (Auto) 3.9 (0-5) % Baso % (Auto) 0.1 (0-1) % Absolute Neuts (auto) 11.2 H (2.0-7.7) X10^3/uL Absolute Lymphs (auto) 1.91 (0.83-4.51) X10^3/ul Total Counted Not Reportable Differential Comment SCANNED Diff Path Review March Sodium 137 (136-145) mmol/L Potassium 3.7 (3.5-5.1) mmol/L Chloride 102 (98-107) mmol/L Carbon Dioxide 30.0 (21.0-32.0) mmol/L Anion Gap 5 (5-15) BUN 9 (7-18) mg/dL Creatinine 0.70 (0.55-1.02) mg/dL Estim Creat Clear Calc 64.22 ml/min Est GFR (MDRD) Af Amer 108 (>60) mL/min Est GFR (MDRD) Non-Af 89 (>60) mL/min BUN/Creatinine Ratio 12.8 (10-20) RATIO Glucose 128 H (74-106) mg/dL Lactic Acid 1.1 (0.4-2.0) mmol/L Calcium 8.5 (8.5-10.1) mg/dL 3 01/17/18 01/17/18 Range/Units 05:20 05:20 WBC 9.8 (4.4-11.0) K/mm3 RBC 3.27 L (4.2-5.4) M/mm3 Hgb 9.7 L (12.0-15.0) g/dl Hct 31.5 L (37-47) % MCV 96.3 (81-99) fL MCH 29.7 (27.0-32.0) pg MCHC 30.8 L (32-36) g/gl RDW 14.2 (11.6-14.6) % RDW Differential 49.5 H (35.1-43.9) fl Plt Count 177 (150-450) K/mm3 MPV 10.0 (6.2-12.0) fl Immature Gran % (Auto) (0.0-0.9) % Neut % (Auto) (47-70) % Lymph % (Auto) (19-41) % [place] % (Auto) (0-10) % Eos % (Auto) (0-5) % Baso % (Auto) (0-1) % Absolute Neuts (auto) (2.0-7.7) X10^3/uL Absolute Lymphs (auto) (0.83-4.51) X10^3/ul Total Counted Differential Comment Diff Path Review Sodium 142 (136-145) mmol/L Potassium 3.6 (3.5-5.1) mmol/L Chloride 104 (98-107) mmol/L Carbon Dioxide 30.0 (21.0-32.0) mmol/L Anion Gap 8 (5-15) BUN 9 (7-18) mg/dL Creatinine 0.62 (0.55-1.02) mg/dL Estim Creat Clear Calc 72.50 ml/min Est GFR (MDRD) Af Amer 124 (>60) mL/min Est GFR (MDRD) Non-Af 103 (>60) mL/min BUN/Creatinine Ratio 14.5 (10-20) RATIO Glucose 114 H (74-106) mg/dL Lactic Acid (0.4-2.0) mmol/L Calcium 8.2 L (8.5-10.1) mg/dL Assessment/Plan Active and Suspected Problems (Last Updated 12/25/17 @ 16:12 by Mario Chatterjee) Status post bilateral knee replacements (Acute) This is a 62 years old female patient admitted for elective bilateral knee arthroplasties for bilateral knee osteoarthritis and I was consulted to see the patient urgently for fever and tachycardia although the physician who was on- call for the primary admitting physician did not call me for this consult. #1 probable right lower lung community-acquired pneumonia/sepsis: This is based on fever, tachycardia, leukocytosis and suspected infiltrate on chest x-ray. She is tachycardic, having spikes of low-grade fever, blood pressure stable. Lactic acid was normal. Plan: Start IV Levaquin, add IV Zosyn to cover for gram- negative organisms, albuterol every 4 hours, incentive spirometer, urinalysis, urine culture. #2 status post bilateral knee arthroplasties: That was done for bilateral knee osteoarthritis, postoperative day 2. Patient complains of bilateral knee pain. She is on IV hydromorphone as well as OxyIR as needed for pain. Orthopedic surgery is managing. #3 postoperative anemia: Her baseline hemoglobin is normal. Hemoglobin came down from 12.4 g/dL down to 9.7 g/dL. At this time, no evidence of active bleeding. This is likely because of blood loss during surgery and hemodilution. Plan to monitor CBC. #4 hypertension: Blood pressure stable, continue HCTZ. #5 depression: Continue Lexapro. #6 DVT prophylaxis: She is on full dose of aspirin twice daily. This note was generated with [email or web address] dictation software. It may contain incorrect words, spelling, and punctuation that were not noted in checking the note before signing. Code Visit Inpatient E&M: 14431 Init Hosp L2
[2018-01-18 03:03] LABS: Absolute Lymphocyte Count 1.91 X10^3/ul (0.83-4.51); Absolute Neutrophil Count 11.2 X10^3/uL (2.0-7.7); Basophil# 0.02 X10^3/uL; Basophil% 0.1 % (0-1); Eosinophil# 0.61 X10^3/uL; Eosinophils% 3.9 % (0-5); Hematocrit 29.6 % (37-47); Hemoglobin 9.4 g/dl (12.0-15.0); Lymphocyte # 1.91 X10^3/ul (4.0); Lymphocyte % 12.3 % (19-41); Mean Corp Hgb Conc 31.8 g/gl (32-36); Mean Corpuscular Hgb 30.7 pg (27.0-32.0); Mean Corpuscular Volume 96.7 fL (81-99); Mean Platelet Vol. 10.2 fl (6.2-12.0); Monocyte# 1.64 X10^3/uL; Monocyte% 10.6 % (0-10); Neutrophil % 72.5 % (47-70); Platelet Count 170 K/mm3 (150-450); RBC Distribution Width CV 13.7 % (11.6-14.6); RBC Distribution Width SD 45.3 fl (35.1-43.9); Red Blood Count 3.06 M/mm3 (4.2-5.4); White Blood Count 15.5 K/mm3 (4.4-11.0)
[2018-01-18 03:04] LABS: Differential Indicated SCAN CRITERIA MET; POSITIVE COUNT NO; POSITIVE DIFFERENTIAL YES; POSITIVE MORPHOLOGY NO
[2018-01-18] MEDS: 0.9% Normal Saline 1,000 ML 100 ML IV (03:12)
[2018-01-18] MEDS: oxyCODONE 5 MG Tablet PO ×2 (03:12→09:33)
[2018-01-18 03:16] LABS: Differential Comment SCANNED
[2018-01-18 03:19] LABS: Anion Gap 5 (5-15); BUN 9 mg/dL (7-18); BUN/Creat Ratio 12.8 RATIO (10-20); Calcium,Total 8.5 mg/dL (8.5-10.1); Chloride 102 mmol/L (98-107); EST Glomerular Filtration Rate 89 mL/min (>60); Est Glom Filt Rate - Afr Amer 108 mL/min (>60); Estimated Creatinine Clearance 64.22 ml/min; Glucose 128 mg/dL (74-106); Potassium 3.7 mmol/L (3.5-5.1); Sodium Level 137 mmol/L (136-145)
[2018-01-18 03:23] LABS: Lactic Acid 1.1 mmol/L (0.4-2.0)
[2018-01-18] MEDS: 0.9% NaCl IVPB Med Flush (250 mL) 15 ML IV (07:18)
[2018-01-18] MEDS: Acetaminophen 500 MG Tablet 1000 MG PO ×3 (07:18→21:44)
[2018-01-18] MEDS: Piperacil/Tazobactam 3.375 GM/50 ML ML IV ×3 (07:18→22:33)
[2018-01-18] MEDS: Albuterol 2.5 MG/3 ML VIAL.NEB. INHALATION ×5 (07:27→23:10)
--- NOTE | 2018-01-18 07:46 | PCM.PN.ORT ---
Patient Problems: Active and Suspected Problems (Last Updated 12/25/17 @ 16:12 by Mario Chatterjee) Status post bilateral knee replacements (Acute) Subjective: Postop day 2 status post bilateral total knee arthroplasties. Patient was seen by the hospitalist team last night due to elevated heart rate and he was concerned that the patient may have a community-acquired pneumonia and started antibiotics. Patient was also seen by pain management yesterday. It seems to be improving her overall symptoms but the family reports that when the patient got some Valium she was a little bit sedated. I am to go ahead and hold that for now. Encourage family that we can continue to follow her medically at this point time. Encourage the patient to sit upright as much as possible throughout the day and start bending her knee. She really needs to start using incentive spirometry as much as possible as well. Is positive for bowel movements and urination. Patient denies any azul chest pain at this point time. Patient feels the left knee hurts more than the right knee. Denies any calf pain. - Physical Exam General: Alert, Oriented x3, Cooperative, No apparent distress Musculoskeletal: - - Right knee shows no signs of knee effusion actually looks very good full extension range of motion is maybe 30 this morning. But no calf pain negative Homans SCDs in place. Left knee examination shows an effusion to the knee she has a small blister formation at the distal third lateral aspect of the wound on the outside of the Silverlon dressing. Not sure if this is just from traction from her cooling packs or actually related to the Silverlon dressing itself. Patient otherwise appears to be ligamentously stable. She has full extension. Vital signs reviewed reviewed lab values reviewed. Vital Signs Temp Pulse Resp BP Pulse Ox 99.1 F 120 H 22 H 117/59 L 92 01/18/18 04:10 01/18/18 07:28 01/18/18 07:28 01/18/18 04:10 01/18/18 07:28 Oxygen Flow Rate (L/min) 3 Oxygen Delivery Method Nasal Cannula Weight: 245 lb 5.992 oz Body Mass Index (BMI) 44.9 Intake and Output for Last 24 Hours 01/16/18 01/17/18 01/18/18 23:59 23:59 23:59 Intake Total 3517 / 3517 726 / 726 100 / 100 Output Total 400 / 400 Balance 3517 / 3517 326 / 326 100 / 100 Laboratory Tests Past 24 Hrs 01/18/18 01/18/18 01/18/18 02:50 02:50 02:50 WBC 15.5 H RBC 3.06 L Hgb 9.4 L Hct 29.6 L MCV 96.7 MCH 30.7 MCHC 31.8 L RDW 13.7 RDW Differential 45.3 H Plt Count 170 MPV 10.2 Immature Gran % (Auto) 0.600 Neut % (Auto) 72.5 H Lymph % (Auto) 12.3 L [place] % (Auto) 10.6 H Eos % (Auto) 3.9 Baso % (Auto) 0.1 Absolute Neuts (auto) 11.2 H Absolute Lymphs (auto) 1.91 Total Counted Not Reportable Differential Comment SCANNED Diff Path Review May foll Sodium 137 Potassium 3.7 Chloride 102 Carbon Dioxide 30.0 Anion Gap 5 BUN 9 Creatinine 0.70 Estim Creat Clear Calc 64.22 Est GFR (MDRD) Af Amer 108 Est GFR (MDRD) Non-Af 89 BUN/Creatinine Ratio 12.8 Glucose 128 H Lactic Acid 1.1 Calcium 8.5 Assessment/Plan Active and Suspected Problems (Last Updated 12/25/17 @ 16:12 by Mario Chatterjee) Status post bilateral knee replacements (Acute) S1: Bilateral total knee arthroplasties. May need acquired pneumonia. History of Jehovah witness. Plan: At this point time we will continue to medically manage her through the hospitalist team. I will speak with pain management and whether or not they have further recommendations. The family is once that the patient is done very well with Dilaudid so maybe that is a consideration for oral supplementation as it relates to her patch formation as well. Obviously we do not want to over sedate the patient. I have reiterated to the family that they really need to motivate her to try to get up and move. I understand she feels poorly but we need to be able to get her to mobilize. Bilateral knees hurt and there is no to weighs about that. I will inform the nursing staff that if there appears to be any blister formations underneath the Silverlon and that should take it off. I have explained this to the family that sometimes can cause blister formations. Especially when the swelling to the knee. Simple bacitracin or Neosporin application to the blister sites will be fine. We will continue to follow at this time. Any major issues please contact me.
--- NOTE | 2018-01-18 09:25 | PCM.PN.HOSP ---
Patient Problems: Active and Suspected Problems (Last Updated 12/25/17 @ 16:12 by aMrio Chatterjee) Status post bilateral knee replacements (Acute) Subjective: Events noted. Patient seems to be breathing better. Family notes that the patient is more listless today. Vitals/I&O's: Vital Signs Temp Pulse Resp BP Pulse Ox 37.1 C 124 H 22 H 104/52 L 97 01/18/18 09:15 01/18/18 09:15 01/18/18 09:15 01/18/18 09:15 01/18/18 09:15 Oxygen Flow Rate (L/min) 3 Oxygen Delivery Method Nasal Cannula Weight: 111.3 kg Body Mass Index (BMI) 44.9 Intake and Output for Last 24 Hours 01/16/18 01/17/18 01/18/18 23:59 23:59 23:59 Intake Total 3517 / 3517 726 / 726 320 / 320 Output Total 400 / 400 Balance 3517 / 3517 326 / 326 320 / 320 General: Alert, - - Uncomfortable. Afebrile. HEENT: Atraumatic, Normocephalic Neck: No Nodes, Thyroid Normal Size and Texture Lungs: Normal air movement, Diminished, - - crackles right lower lobe Cardiovascular: Regular rate, Regular Rhythm, Normal S1, Normal S2 Abdomen: Bowel Sounds Present, Soft, Non Tender, Non-Distended, No Hepato-splenomegaly Extremities: No edema, No Calf Tenderness Psych/Mental Status: Appropriate Laboratory Results 01/18/18 02:50: WBC 15.5 H, RBC 3.06 L, Hgb 9.4 L, Hct 29.6 L, MCV 96.7, MCH 30.7, MCHC 31.8 L, RDW 13.7, RDW Differential 45.3 H, Plt Count 170, MPV 10.2, Immature Gran % (Auto) 0.600, Neut % (Auto) 72.5 H, Lymph % (Auto) 12.3 L, [place] % (Auto) 10.6 H, Eos % (Auto) 3.9, Baso % (Auto) 0.1, Absolute Neuts (auto) 11.2 H, Absolute Lymphs (auto) 1.91, Total Counted Not Reportable, Differential Comment SCANNED, Diff Path Review March01/18/18 02:50: Lactic Acid 1.1 01/18/18 02:50: Sodium 137, Potassium 3.7, Chloride 102, Carbon Dioxide 30.0, Anion Gap 5, BUN 9, Creatinine 0.70, Estim Creat Clear Calc 64.22, Est GFR (MDRD) Af Amer 108, Est GFR (MDRD) Non-Af 89, BUN/Creatinine Ratio 12.8, Glucose 128 H, Calcium 8.5 Current Medications Acetaminophen (Tylenol) 1,000 mg PO Q8 [facility] Last Admin: 01/18/18 07:18 Dose: 1,000 mg Albuterol Sulfate (Ventolin Aerosols) 2.5 mg INHALATION Q4H.RT [facility] Last Admin: 01/18/18 07:27 Dose: 2.5 mg Ascorbic Acid (Vitamin C) 1,000 mg PO DAILY@0800 [facility] Last Admin: 01/17/18 09:03 Dose: 1,000 mg Aspirin (Aspirin) 325 mg PO BIDCM [facility] Last Admin: 01/17/18 21:57 Dose: 325 mg Escitalopram Oxalate (Lexapro) 10 mg PO DAILY [facility] Last Admin: 01/17/18 10:55 Dose: 10 mg Famotidine (Pepcid) 20 mg PO DAILY [facility] Last Admin: 01/17/18 10:55 Dose: 20 mg Gabapentin (Neurontin) 300 mg PO TIDCM [facility] Last Admin: 01/17/18 21:58 Dose: 300 mg Hydrochlorothiazide (Hctz) 25 mg PO DAILY [facility] Last Admin: 01/17/18 10:55 Dose: 25 mg Hydromorphone HCl (Dilaudid) 1 mg IV Q2H PRN PRN PRN Reason: SEVERE PAIN (6-10/10) Last Admin: 01/17/18 08:26 Dose: 1 mg Sodium Chloride () 1,000 mls @ 100 mls/hr IV .Q10H [facility] Stop: 01/18/18 12:24 Last Admin: 01/18/18 03:12 Dose: 100 mls/hr Levofloxacin (Levaquin) 750 mg in 150 mls @ 100 mls/hr IV Q24 [facility] Last Admin: 01/18/18 04:14 Dose: 100 mls/hr Piperacillin Sod/Tazobactam Sod (Zosyn) 3.375 gm in 50 mls @ 12.5 mls/hr IV Q8 [facility] Last Admin: 01/18/18 07:18 Dose: 12.5 mls/hr Sodium Chloride () 250 mls @ 15 mls/hr IV .[id number] PRN PRN Reason: SALINE FLUSH Last Admin: 01/18/18 07:18 Dose: 15 mls/hr [facility] Last Admin: 01/17/18 09:03 Dose: 1 tablet Ondansetron HCl (Zofran) 4 mg IV Q8H PRN PRN PRN Reason: NAUSEA Oxycodone HCl (Oxyir) 5 mg PO Q4H PRN PRN PRN Reason: SEVERE PAIN (6-10/10) Last Admin: 01/18/18 03:12 Dose: 5 mg Polysaccharide Iron Complex (Ferrex 150) [facility] Last Admin: 01/17/18 09:05 Dose: 150 mg Potassium Chloride (K-Dur) 20 meq [facility] Promethazine HCl (Phenergan (Ll)) 12.5 mg IM Q6H PRN PRN; Protocol PRN Reason: NAUSEA/VOMITING Senna/Docusate Sodium (Senokot-S, Bri-Colace) 2 tablet PO BID [facility] Last Admin: 01/17/18 21:57 Dose: 2 tablet Sodium Chloride () 5 - 30 ml IV UD PRN PRN Reason: SALINE FLUSH Last Admin: 01/17/18 08:26 Dose: 10 ml Venlafaxine HCl (Effexor Xr) 150 mg PO DAILY [facility] Venlafaxine HCl (Effexor Xr) 75 mg PO DAILY [facility] Assessment/Plan Active and Suspected Problems (Last Updated 12/25/17 @ 16:12 by Mario Chatterjee) Status post bilateral knee replacements (Acute) 1. Presumed pneumococcal pneumonia I concur with the previous hospitalist as I do not feel that this would qualify as a H For gram-negative pneumonia. Given the patient's clinical situation would continue with Zosyn for now but likely would discontinue after today based on any deterioration in her response. Therefore continue with Levaquin for now. Pulmonary toilet, with aerosols and chest physiotherapy Check sputum culture, urinary antigens for strep and Legionella If patient deteriorates despite what should be proper antibiotics, they could consider CT imaging of her chest. 2. Tachycardia Probably with the patient's pneumonia but also pain Check EKG Cycle troponins as well. 3. Post bilateral knee replacements mgmt per orthopedics 4. DVT prophylaxis with aspirin as management per orthopedics. Discussed with the patient's family at bedside. Code Visit Procedures: Other Procedure - See Report - Non-billable rounding.
--- NOTE | 2018-01-18 09:32 | PN_ITS ---
Patient Problems: Active and Suspected Problems (Last Updated 12/25/17 @ 16:12 by Mario Chatterjee) Status post bilateral knee replacements (Acute) Subjective: Events noted. Patient seems to be breathing better. Family notes that the patient is more listless today. Vitals/I&O's: Vital Signs Temp Pulse Resp BP Pulse Ox 37.1 C 124 H 22 H 104/52 L 97 01/18/18 09:15 01/18/18 09:15 01/18/18 09:15 01/18/18 09:15 01/18/18 09:15 Oxygen Flow Rate (L/min) 3 Oxygen Delivery Method Nasal Cannula Weight: 111.3 kg Body Mass Index (BMI) 44.9 Intake and Output for Last 24 Hours 01/16/18 01/17/18 01/18/18 23:59 23:59 23:59 Intake Total 3517 / 3517 726 / 726 320 / 320 Output Total 400 / 400 Balance 3517 / 3517 326 / 326 320 / 320 General: Alert, - - Uncomfortable. Afebrile. HEENT: Atraumatic, Normocephalic Neck: No Nodes, Thyroid Normal Size and Texture Lungs: Normal air movement, Diminished, - - crackles right lower lobe Cardiovascular: Regular rate, Regular Rhythm, Normal S1, Normal S2 Abdomen: Bowel Sounds Present, Soft, Non Tender, Non-Distended, No Hepato- splenomegaly Extremities: No edema, No Calf Tenderness Psych/Mental Status: Appropriate Laboratory Results 01/18/18 02:50: WBC 15.5 H, RBC 3.06 L, Hgb 9.4 L, Hct 29.6 L, MCV 96.7, MCH 30.7, MCHC 31.8 L, RDW 13.7, RDW Differential 45.3 H, Plt Count 170, MPV 10.2, Immature Gran % (Auto) 0.600, Neut % (Auto) 72.5 H, Lymph % (Auto) 12.3 L, Shannon % (Auto) 10.6 H, Eos % (Auto) 3.9, Baso % (Auto) 0.1, Absolute Neuts (auto) 11.2 H, Absolute Lymphs (auto) 1.91, Total Counted Not Reportable, Differential Comment SCANNED, Diff Path Review March01/18/18 02:50: Lactic Acid 1.1 01/18/18 02:50: Sodium 137, Potassium 3.7, Chloride 102, Carbon Dioxide 30.0, Anion Gap 5, BUN 9, Creatinine 0.70, Estim Creat Clear Calc 64.22, Est GFR (MDRD ) Af Amer 108, Est GFR (MDRD) Non-Af 89, BUN/Creatinine Ratio 12.8, Glucose 128 H, Calcium 8.5 Current Medications Acetaminophen (Tylenol) 1,000 mg PO Q8 [facility] Last Admin: 01/18/18 07:18 Dose: 1,000 mg Albuterol Sulfate (Ventolin Aerosols) 2.5 mg INHALATION Q4H.RT [facility] Last Admin: 01/18/18 07:27 Dose: 2.5 mg Ascorbic Acid (Vitamin C) 1,000 mg PO DAILY@0800 [facility] Last Admin: 01/17/18 09:03 Dose: 1,000 mg Aspirin (Aspirin) 325 mg PO BIDCM [facility] Last Admin: 01/17/18 21:57 Dose: 325 mg Escitalopram Oxalate (Lexapro) 10 mg PO DAILY [facility] Last Admin: 01/17/18 10:55 Dose: 10 mg Famotidine (Pepcid) 20 mg PO DAILY [facility] Last Admin: 01/17/18 10:55 Dose: 20 mg Gabapentin (Neurontin) 300 mg PO TIDCM [facility] Last Admin: 01/17/18 21:58 Dose: 300 mg Hydrochlorothiazide (Hctz) 25 mg PO DAILY [facility] Last Admin: 01/17/18 10:55 Dose: 25 mg Hydromorphone HCl (Dilaudid) 1 mg IV Q2H PRN PRN PRN Reason: SEVERE PAIN (6-10/10) Last Admin: 01/17/18 08:26 Dose: 1 mg Sodium Chloride () 1,000 mls @ 100 mls/hr IV .Q10H [facility] Stop: 01/18/18 12:24 Last Admin: 01/18/18 03:12 Dose: 100 mls/hr Levofloxacin (Levaquin) 750 mg in 150 mls @ 100 mls/hr IV Q24 [facility] Last Admin: 01/18/18 04:14 Dose: 100 mls/hr Piperacillin Sod/Tazobactam Sod (Zosyn) 3.375 gm in 50 mls @ 12.5 mls/hr IV Q8 [facility] Last Admin: 01/18/18 07:18 Dose: 12.5 mls/hr Sodium Chloride () 250 mls @ 15 mls/hr IV .[id number] PRN PRN Reason: SALINE FLUSH Last Admin: 01/18/18 07:18 Dose: 15 mls/hr [facility] ([facility]) [facility] Admin: 01/17/18 09:03 Dose: 1 tablet Ondansetron HCl (Zofran) 4 mg IV Q8H PRN PRN PRN Reason: NAUSEA Oxycodone HCl (Oxyir) 5 mg PO Q4H PRN PRN PRN Reason: SEVERE PAIN (6-10/10) Last Admin: 01/18/18 03:12 Dose: 5 mg Polysaccharide Iron Complex (Ferrex 150) [facility] Last Admin: 01/17/18 09:05 Dose: 150 mg Potassium Chloride (K-Dur) 20 meq [facility] Promethazine HCl (Phenergan (Ll)) 12.5 mg IM Q6H PRN PRN; Protocol PRN Reason: NAUSEA/VOMITING Senna/Docusate Sodium (Senokot-S, Bri-Colace) 2 tablet PO BID [facility] Last Admin: 01/17/18 21:57 Dose: 2 tablet Sodium Chloride () 5 - 30 ml IV UD PRN PRN Reason: SALINE FLUSH Last Admin: 01/17/18 08:26 Dose: 10 ml Venlafaxine HCl (Effexor Xr) 150 mg PO DAILY [facility] Venlafaxine HCl (Effexor Xr) 75 mg PO DAILY [facility] Assessment/Plan Active and Suspected Problems (Last Updated 12/25/17 @ 16:12 by Mario Chatterjee) Status post bilateral knee replacements (Acute) 1. Presumed pneumococcal pneumonia * I concur with the previous hospitalist as I do not feel that this would qualify as a H For gram-negative pneumonia. * Given the patient's clinical situation would continue with Zosyn for now but likely would discontinue after today based on any deterioration in her response. * Therefore continue with Levaquin for now. * Pulmonary toilet, with aerosols and chest physiotherapy * Check sputum culture, urinary antigens for strep and Legionella * If patient deteriorates despite what should be proper antibiotics, they could consider CT imaging of her chest. 2. Tachycardia * Probably with the patient's pneumonia but also pain * Check EKG * Cycle troponins as well. 3. Post bilateral knee replacements * mgmt per orthopedics 4. DVT prophylaxis with aspirin as management per orthopedics. Discussed with the patient's family at bedside. Code Visit Procedures: Other Procedure - See Report - Non-billable rounding.
--- NOTE | 2018-01-18 09:32 | EKG12_ITS ---
Test Reason : PNEUMONIA Blood Pressure : / mmHG Vent. Rate : 124 BPM Atrial Rate : 124 BPM P-R Int : 140 ms QRS Dur : 082 ms QT Int : 298 ms P-R-T Axes : 048 010 122 degrees QTc Int : 428 ms Sinus tachycardia Nonspecific ST and T wave abnormality Abnormal ECG When compared with ECG of 28-SEP-2017 16:01, Nonspecific T wave abnormality, worse in Inferior leads Nonspecific T wave abnormality now evident in Anterolateral leads Confirmed by SHARYN JETER ([id number]), make up editor KIMMY KAPOOR ([id number]) on 01/29/2018 2:21:45 PM Referred By: Nathan Torres Confirmed By:SHARYN JETER
[2018-01-18] MEDS: Multivitamins,Therapeutic Tablet 1 TABLET PO (09:33)
[2018-01-18] MEDS: Senna/Docusate Sodium 1 Tablet 2 TABLET PO ×2 (09:33→21:44)
[2018-01-18] MEDS: Gabapentin 300 MG Capsule PO ×2 (09:33→16:20)
[2018-01-18] MEDS: Aspirin 325 MG Tablet PO ×2 (09:34→16:27)
[2018-01-18] MEDS: Iron Polysaccharide Complex 150 MG CAPSULE PO (09:34)
[2018-01-18] MEDS: Ascorbic Acid 500 MG Tablet 1000 MG PO (09:34)
[2018-01-18] MEDS: Famotidine 20 MG Tablet PO (09:35)
[2018-01-18] MEDS: Escitalopram Oxalate 10 MG Tablet PO (09:35)
[2018-01-18] MEDS: hydroCHLOROthiazide 25 MG Tablet PO (09:36)
[2018-01-18] MEDS: Venlafaxine XR 150 MG Capsule PO (09:37)
[2018-01-18] MEDS: Venlafaxine XR 75 MG Capsule PO (09:38)
[2018-01-18] MEDS: HYDROmorphone 2 MG TABLET PO (13:55)
[2018-01-18 14:13] LABS: Pathologist Review Reviewed
[2018-01-18 14:25] LABS: Mucous, Urine 0 SEEN /hpf (<or=2+); Red Blood Cells-Urine 0 SEEN /hpf (0-5)
[2018-01-18 14:28] LABS: Color, Urine Yellow (Yellow); Glucose, Dipstick Normal (Normal); Ketone-Dipstick Negative (Negative); Leukocyte Esterase-Dipstick 100 /ul (Negative); Nitrite-Dipstick Negative (Negative); Occult Blood-Urine 10 /ul (Negative); Protein-Dipstick Negative (Negative); Urine Bilirubin Dipstick Negative (Negative); Urine Clarity Sl. Cloudy (Clear); Urine Urobilinogen 1 mg/dl (Normal)
[2018-01-18 14:34] LABS: Bacteria RARE /hpf (None Seen); Squamous Epithelial Cells - UA 0-5 SEEN /hpf (5-10); White Blood Cells 5-10 SEEN /hpf (0-5)
[2018-01-18] MEDS: Oxybutynin 5 MG Tablet 10 MG PO (21:44)
[2018-01-18] MEDS: Ondansetron 4 MG/2 ML Vial IV (22:23)
[2018-01-18] MEDS: HYDROmorphone 1 MG/ML Syringe IV (22:32)
[2018-01-18] MEDS: 0.9% NaCl Peripheral Flush Adult/Peds IV ×2 (22:35→22:51)
--- NOTE | 2018-01-18 23:47 | NURSING ---
Pt's family requesting more recliner chairs. 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 This RN made family aware they are more than welcome to stay in waiting room & offered more blankets to them, but pt's daughter & granddaughter spread sheet out on floor and are currently laying there, in recliner.
[2018-01-19] VITALS (27 sets, daily range): BP systolic 82–111; BP diastolic 46–70; PULSE 101–137; RESP 16–26; TEMP 36.6–37.5; O2SAT 90–100
--- NOTE | 2018-01-19 00:22 | EKG12_ITS ---
Test Reason : PNEUMONIA Blood Pressure : / mmHG Vent. Rate : 133 BPM Atrial Rate : 133 BPM P-R Int : 134 ms QRS Dur : 088 ms QT Int : 308 ms P-R-T Axes : 061 012 -02 degrees QTc Int : 458 ms Sinus tachycardia Nonspecific ST and T wave abnormality Abnormal ECG When compared with ECG of 18-JAN-2018 10:31, MANUAL COMPARISON REQUIRED, DATA IS UNCONFIRMED Confirmed by SHARYN JETER ([id number]), editor magazine KIMMY KAPOOR ([id number]) on 01/29/2018 2:21:56 PM Referred By: Nathan Torres Confirmed By:SHARYN JETER
--- NOTE | 2018-01-19 00:22 | RAD_ITS ---
STUDY: X-RAY CHEST REASON FOR EXAM: Female, 62 years old. Shortness of breath TECHNIQUE: Single AP portable view of the chest. COMPARISON: 01/18/2018 FINDINGS: There is right greater than left mild interstitial prominence. Stable mild elevation of the right hemidiaphragm with compression of right basilar parenchyma. There is no demonstrated pleural abnormality. Normal size heart. Normal mediastinum and navin. Normal visualized pulmonary arteries. Normal visualized aortic arch and descending thoracic aorta. There are diffuse degenerative changes of the visualized thoracic spine. Normal visualized ribs, clavicles, and shoulders. There is no demonstrated abnormality of the visualized soft tissue structures of the upper abdomen. RAD/Chest 1 View (Portable) IMPRESSION: Interstitial prominence right greater than left, atelectasis or infiltrate in the right base with mild elevation of the right hemidiaphragm, not significantly changed. Electronically Signed: Francisca San MD at 1:08 EST , Service support ,
--- NOTE | 2018-01-19 00:43 | NURSING ---
Dr. Gandhi at bedside at this time
[2018-01-19 01:06] LABS: Base Excess 3 mmol/L (-2 to +2); Bicarbonate 28.1 mmol/L (22-26); Blood Gas Specimen Type ART; FI02 40; PO2 68 mmHG (75-100); SITE L Brachial; SO2 93 % (95-99); Time Given 55; Total Carbon Dioxide 29 mmol/L; pCO2 44.8 mmHg (35-45); pH 7.41 (7.35-7.45)
[2018-01-19 01:38] LABS: Thyroid Stim Hormone (TSH) 1.53 uIU/mL (0.358-3.74)
[2018-01-19 01:41] LABS: Lactic Acid 2.6 mmol/L (0.4-2.0)
--- NOTE | 2018-01-19 02:13 | PCM.PN.BLA ---
Progress Note I received a call from the patient's nurse because patient has been having tachycardia with heart rate of up to 140s and her pulse oximeter has been dropping. I went to see the patient and patient seen and examined. She denies any worsening shortness of breath. She complained dizziness. No chest pain or palpitation. She received 1 mg of Dilaudid earlier. On examination: Chest: Decreased breath sounds bilateral, no added sounds. Heart: S1-S2 normal, tachycardia. Abdomen: Soft nontender. Assessment and plan: Apparently, patient has been tachycardic since she was admitted for elective surgery. According to the family member, she does have chronic elevated heart rate and normally, her heart rate is in 120s. Her heart rate do not has been around 130. Blood pressure was low. She received 500 of fluid bolus and her blood pressure improved. Her lactic acid last night was normal. Repeat lactic yesterday was 2.6. She was started on IV Zosyn and Levaquin for possible pneumonia last night. Her TSH was normal. ABG revealed pH of 7.41, PCO2 of 44 and PO2 of 68. Chest x-ray repeated tonight and revealed possible infiltrate on the right lung base which was not changed from last night x-ray. Plan to continue IV antibiotics, will give another 500 cc of normal saline bolus, repeat lactic acid in 3 hours, close monitoring of blood pressure.
[2018-01-19] MEDS: Albuterol 2.5 MG/3 ML VIAL.NEB. INHALATION ×6 (02:58→22:38)
[2018-01-19 05:06] LABS: Reflex Lactate? Y
[2018-01-19] MEDS: 0.9% NaCl Peripheral Flush Adult/Peds IV (05:49)
[2018-01-19 06:01] LABS: Hemoglobin 8.2 g/dl (12.0-15.0); Mean Corp Hgb Conc 31.5 g/gl (32-36); Mean Corpuscular Hgb 30.4 pg (27.0-32.0); Mean Corpuscular Volume 96.3 fL (81-99); Mean Platelet Vol. 10.4 fl (6.2-12.0); Platelet Count 170 K/mm3 (150-450); RBC Distribution Width SD 45.9 fl (35.1-43.9); White Blood Count 12.9 K/mm3 (4.4-11.0)
[2018-01-19 06:07] LABS: Scan Indicated on CBC? Y/N NO
[2018-01-19] MEDS: Piperacil/Tazobactam 3.375 GM/50 ML ML IV ×3 (06:33→21:26)
[2018-01-19] MEDS: oxyCODONE 5 MG Tablet PO (06:38)
[2018-01-19] MEDS: Acetaminophen 500 MG Tablet 1000 MG PO ×3 (06:38→21:26)
[2018-01-19 06:46] LABS: Anion Gap 7 (5-15); BUN 12 mg/dL (7-18); BUN/Creat Ratio 13.5 RATIO (10-20); Calcium,Total 8.1 mg/dL (8.5-10.1); Chloride 102 mmol/L (98-107); Creatinine, Serum 0.89 mg/dL (0.55-1.02); EST Glomerular Filtration Rate 68 mL/min (>60); Est Glom Filt Rate - Afr Amer 82 mL/min (>60); Estimated Creatinine Clearance 50.51 ml/min; Glucose 141 mg/dL (74-106); Potassium 3.9 mmol/L (3.5-5.1); Sodium Level 140 mmol/L (136-145)
[2018-01-19 06:48] LABS: Lactic Acid 1.8 mmol/L (0.4-2.0)
--- NOTE | 2018-01-19 07:24 | CT_ITS ---
STUDY: CTA CHEST REASON FOR EXAM: Female, 62 years old. Hypoxia. Recent bilateral knee replacements. RADIATION DOSAGE (If Supplied By Facility): CTDIvol = ( 42.42 ) mGy, DLP = ( 859.39 ) mGycm TECHNIQUE: The examination was performed with the intravenous administration of 100 ml of Isovue 370 contrast material. Post-processing of the angiographic images was performed, with multiplanar reformation and 3D reconstruction. Individualized dose optimization techniques were used for this CT. COMPARISON: None. FINDINGS: Normal enhancement of the main pulmonary artery and right and left pulmonary arteries. Normal enhancement of the bilateral peripheral pulmonary arteries. There is no demonstrated pulmonary embolism. Normal thoracic aorta and visualized great vessels. There is no demonstrated aortic dissection. Normal heart and pericardium. Normal mediastinum. Normal hilar regions. Normal visualized trachea and bronchi. There is elevation of the right hemidiaphragm. Right upper lobe infiltration and airspace disease. Patchy infiltrate in the posterior segment of the left upper lobe. Bullous changes in the left upper lobe. Atelectasis and/or early infiltrate in the posterior aspect of the right middle lobe. Bibasilar infiltrates slightly worse on the left side. Normal pleura. Normal chest wall structures. There are degenerative changes of thoracic spine. Normal visualized upper abdomen. CT/CTA Chest W/WO Contrast IMPRESSION: Infiltrations in both lungs as described. There is no evidence of pulmonary embolism. Electronically Signed: Antony Gallo MD at 8:57 EST Tel [phone], Service support ,
--- NOTE | 2018-01-19 08:17 | PCM.PN.HOSP ---
Patient Problems: Active and Suspected Problems (Last Updated 12/25/17 @ 16:12 by Mario Chatterjee) Status post bilateral knee replacements (Acute) Subjective: Events reviewed. Patient has remained tachycardic throughout the night. Patient denies any shortness of breath though was noted to be 60% on room air per nursing. Patient has since been put on a Venturi mask and assessment in the mid 90s. Receive IV fluids for attention which did improve her blood pressure to the low normal range. Patient did have a lactic acid to get high as 2.6. Vitals/I&O's: Vital Signs Temp Pulse Resp BP Pulse Ox 37.1 C 123 H 24 H 104/60 95 01/19/18 07:08 01/19/18 07:08 01/19/18 07:08 01/19/18 07:08 01/19/18 07:08 Oxygen Flow Rate (L/min) 4 Oxygen Delivery Method Venturi Mask Weight: 111.3 kg Body Mass Index (BMI) 44.9 Intake and Output for Last 24 Hours 01/17/18 01/18/18 01/19/18 23:59 23:59 23:59 Intake Total 726 / 726 2620 / 2620 1768.7 / 1768.7 Output Total 400 / 400 300 / 300 400 / 400 Balance 326 / 326 2320 / 2320 1368.7 / 1368.7 General: Alert, Cooperative, No apparent distress HEENT: Atraumatic, Normocephalic Neck: No Nodes, Thyroid Normal Size and Texture Lungs: Diminished, - - coarse breath sounds anteriorly Cardiovascular: Normal S1, Normal S2, Tachycardic Abdomen: Bowel Sounds Present, Soft, Non Tender, Non-Distended, No Hepato-splenomegaly Extremities: - - mild calf tenderness Skin: No rashes, No breakdown Psych/Mental Status: Normal Affect, Appropriate Laboratory Results 01/18/18 02:50: Diff Path Review Reviewed 01/18/18 09:50: Troponin I < 0.02 01/18/18 12:25: Troponin I < 0.02 01/18/18 13:20: Troponin I < 0.02 01/18/18 14:10: Urine Color Yellow, Urine Clarity Sl. Cloudy, Urine pH 6.0, Ur Specific [place] 1.010, Urine Protein Negative, Urine Glucose (UA) Normal, Urine Ketones Negative, Urine Occult Blood 10 H, Urine Nitrite Negative, Urine Bilirubin Negative, Urine Urobilinogen 1 H, Ur Leukocyte Esterase 100 H, Urine RBC 0 SEEN, Urine WBC 5-10 SEEN, Ur Squamous Epith Cells 0-5 SEEN, Urine Bacteria RARE, Urine Mucus 0 SEEN 01/19/18 01:00: Lactic Acid 2.6 H 01/19/18 01:00: TSH 1.53 01/19/18 01:02: Specimen Type ART, Sample Site L Brachial, pH 7.41, Bicarbonate Actual 28.1 H, POC Total CO2 29, Base Excess 3 H, O2 Saturation 93 L, O2 % 40, ABG pCO2 44.8, ABG pO2 68 L, O2 Delivery Device Vent Mask, Blood Gas Notified Whom MEGAN FRANCIS, Blood Gas Notified Time 55 01/19/18 05:45: WBC 12.9 H, RBC 2.70 L, Hgb 8.2 L, Hct 26.0 L, MCV 96.3, MCH 30.4, MCHC 31.5 L, RDW 14.0, RDW Differential 45.9 H, Plt Count 170, MPV 10.4 01/19/18 05:45: Sodium 140, Potassium 3.9, Chloride 102, Carbon Dioxide 31.0, Anion Gap 7, BUN 12, Creatinine 0.89, Estim Creat Clear Calc 50.51, Est GFR (MDRD) Af Amer 82, Est GFR (MDRD) Non-Af 68, BUN/Creatinine Ratio 13.5, Glucose 141 H, Calcium 8.1 L 01/19/18 05:45: Lactic Acid 1.8 Current Medications Acetaminophen (Tylenol) 1,000 mg PO Q8 [facility] Last Admin: 01/19/18 06:38 Dose: 1,000 mg Albuterol Sulfate (Ventolin Aerosols) 2.5 mg INHALATION Q4H.RT [facility] Last Admin: 01/19/18 06:34 Dose: 2.5 mg Ascorbic Acid (Vitamin C) 1,000 mg PO DAILY@0800 [facility] Last Admin: 01/18/18 09:34 Dose: 1,000 mg Aspirin (Aspirin) 325 mg PO BIDCM [facility] Last Admin: 01/18/18 16:27 Dose: 325 mg Escitalopram Oxalate (Lexapro) 10 mg PO DAILY [facility] Last Admin: 01/18/18 09:35 Dose: 10 mg Famotidine (Pepcid) 20 mg PO DAILY [facility] Last Admin: 01/18/18 09:35 Dose: 20 mg [facility]) [facility] Last Admin: 01/18/18 16:20 Dose: 300 mg Hydrochlorothiazide (Hctz) 25 mg PO DAILY [facility] Last Admin: 01/18/18 09:36 Dose: 25 mg Hydromorphone HCl (Dilaudid) 1 mg IV Q2H PRN PRN PRN Reason: SEVERE PAIN (6-10/10) Last Admin: 01/18/18 22:32 Dose: 1 mg Hydromorphone HCl (Dilaudid) 2 mg PO Q3H PRN PRN PRN Reason: SEVERE PAIN (6-10/10) Last Admin: 01/18/18 13:55 Dose: 2 mg Levofloxacin (Levaquin) 750 mg in 150 mls @ 100 mls/hr IV Q24 [facility] Last Admin: 01/18/18 04:14 Dose: 100 mls/hr Piperacillin Sod/Tazobactam Sod (Zosyn) 3.375 gm in 50 mls @ 12.5 mls/hr IV Q8 [facility] Last Admin: 01/19/18 06:33 Dose: 12.5 mls/hr Sodium Chloride () 250 mls @ 15 mls/hr IV .[id number] PRN PRN Reason: SALINE FLUSH Last Admin: 01/18/18 07:18 Dose: 15 mls/hr Sodium Chloride () 1,000 mls @ 125 mls/hr IV .Q8H [facility] Multivitamins (Multivitamin) [facility] Last Admin: 01/18/18 09:33 Dose: 1 tablet Ondansetron HCl (Zofran) 4 mg IV Q8H PRN PRN PRN Reason: NAUSEA Last Admin: 01/18/18 22:23 Dose: 4 mg Oxybutynin Chloride (Ditropan) 10 mg PO DAILY [facility] Last Admin: 01/18/18 21:44 Dose: 10 mg Oxycodone HCl (Oxyir) 5 mg PO Q6H PRN PRN PRN Reason: SEVERE PAIN (6-10/10) Last Admin: 01/19/18 06:38 Dose: 5 mg Polysaccharide Iron Complex (Ferrex 150) [facility] Last Admin: 01/18/18 09:34 Dose: 150 mg Potassium Chloride (K-Dur) 20 meq PO BIDCM [facility] Last Admin: 01/18/18 16:19 Dose: 20 meq Senna/Docusate Sodium (Senokot-S, Bri-Colace) 2 tablet PO BID [facility] Last Admin: 01/18/18 21:44 Dose: 2 tablet Sodium Chloride () 5 - 30 ml IV UD PRN PRN Reason: SALINE FLUSH Last Admin: 01/19/18 05:49 Dose: 20 ml Venlafaxine HCl (Effexor Xr) 150 mg PO DAILY [facility] Last Admin: 01/18/18 09:37 Dose: 150 mg Venlafaxine HCl (Effexor Xr) 75 mg PO DAILY [facility] Last Admin: 01/18/18 09:38 Dose: 75 mg Assessment/Plan Active and Suspected Problems (Last Updated 12/25/17 @ 16:12 by Mario Chatterjee) Status post bilateral knee replacements (Acute) 1. Presumed pneumococcal pneumonia I concur with the previous hospitalist as I do not feel that this would qualify as a HCAP or gram-negative pneumonia. Given the patient's clinical situation would continue with Zosyn for now but likely would discontinue after today based on any deterioration in her response. Therefore continue with Levaquin for now. Pulmonary toilet, with aerosols and chest physiotherapy Check sputum culture, urinary antigens for strep and Legionella Reviewed repeat chest x-ray essentially shows no change. 2. Tachycardia Probably with the patient's pneumonia but also pain EKG showed no acute process other than sinus tachycardia. Troponins are negative. Patient has been persistently tachycardic since admission. Report and documentation that the patient is chronically tachycardic. Unclear if that truly the case or not but certainly not a normal finding. Check an echocardiogram start the patient on metoprolol but her blood pressure may be an issue. 3. Acute hypoxic respiratory failure Patient has declined despite no appreciable worsening on her chest x-ray Check CT angiogram of the chest for pulmonary embolism 4. Post bilateral knee replacements mgmt per orthopedics 5. DVT prophylaxis with aspirin as management per orthopedics. Discussed with the patient's family at bedside. At this time, I feel the patient will be better suited in the PCU for closer monitoring. Code Visit Inpatient E&M: 60068 Subs Hosp L2
--- NOTE | 2018-01-19 08:25 | PN_ITS ---
Patient Problems: Active and Suspected Problems (Last Updated 12/25/17 @ 16:12 by Mario Chatterjee) Status post bilateral knee replacements (Acute) Subjective: Events reviewed. Patient has remained tachycardic throughout the night. Patient denies any shortness of breath though was noted to be 60% on room air per nursing. Patient has since been put on a Venturi mask and assessment in the mid 90s. Receive IV fluids for attention which did improve her blood pressure to the low normal range. Patient did have a lactic acid to get high as 2.6. Vitals/I&O's: Vital Signs Temp Pulse Resp BP Pulse Ox 37.1 C 123 H 24 H 104/60 95 01/19/18 07:08 01/19/18 07:08 01/19/18 07:08 01/19/18 07:08 01/19/18 07:08 Oxygen Flow Rate (L/min) 4 Oxygen Delivery Method Venturi Mask Weight: 111.3 kg Body Mass Index (BMI) 44.9 Intake and Output for Last 24 Hours 01/17/18 01/18/18 01/19/18 23:59 23:59 23:59 Intake Total 726 / 726 2620 / 2620 1768.7 / 1768.7 Output Total 400 / 400 300 / 300 400 / 400 Balance 326 / 326 2320 / 2320 1368.7 / 1368.7 General: Alert, Cooperative, No apparent distress HEENT: Atraumatic, Normocephalic Neck: No Nodes, Thyroid Normal Size and Texture Lungs: Diminished, - - coarse breath sounds anteriorly Cardiovascular: Normal S1, Normal S2, Tachycardic Abdomen: Bowel Sounds Present, Soft, Non Tender, Non-Distended, No Hepato- splenomegaly Extremities: - - mild calf tenderness Skin: No rashes, No breakdown Psych/Mental Status: Normal Affect, Appropriate Laboratory Results 01/18/18 02:50: Diff Path Review Reviewed 01/18/18 09:50: Troponin I < 0.02 01/18/18 12:25: Troponin I < 0.02 01/18/18 13:20: Troponin I < 0.02 01/18/18 14:10: Urine Color Yellow, Urine Clarity Sl. Cloudy, Urine pH 6.0, Ur Specific [place] 1.010, Urine Protein Negative, Urine Glucose (UA) Normal, Urine Ketones Negative, Urine Occult Blood 10 H, Urine Nitrite Negative, Urine Bilirubin Negative, Urine Urobilinogen 1 H, Ur Leukocyte Esterase 100 H, Urine RBC 0 SEEN, Urine WBC 5-10 SEEN, Ur Squamous Epith Cells 0-5 SEEN, Urine Bacteria RARE, Urine Mucus 0 SEEN 01/19/18 01:00: Lactic Acid 2.6 H 01/19/18 01:00: TSH 1.53 01/19/18 01:02: Specimen Type ART, Sample Site L Brachial, pH 7.41, Bicarbonate Actual 28.1 H, POC Total CO2 29, Base Excess 3 H, O2 Saturation 93 L, O2 % 40, ABG pCO2 44.8, ABG pO2 68 L, O2 Delivery Device Vent Mask, Blood Gas Notified Whom MEGAN FRANCIS, Blood Gas Notified Time 55 01/19/18 05:45: WBC 12.9 H, RBC 2.70 L, Hgb 8.2 L, Hct 26.0 L, MCV 96.3, MCH 30.4, MCHC 31.5 L, RDW 14.0, RDW Differential 45.9 H, Plt Count 170, MPV 10.4 01/19/18 05:45: Sodium 140, Potassium 3.9, Chloride 102, Carbon Dioxide 31.0, Anion Gap 7, BUN 12, Creatinine 0.89, Estim Creat Clear Calc 50.51, Est GFR ( MDRD) Af Amer 82, Est GFR (MDRD) Non-Af 68, BUN/Creatinine Ratio 13.5, Glucose 141 H, Calcium 8.1 L 01/19/18 05:45: Lactic Acid 1.8 Current Medications Acetaminophen (Tylenol) 1,000 mg PO Q8 [facility] Last Admin: 01/19/18 06:38 Dose: 1,000 mg Albuterol Sulfate (Ventolin Aerosols) 2.5 mg INHALATION Q4H.RT [facility] Last Admin: 01/19/18 06:34 Dose: 2.5 mg Ascorbic Acid (Vitamin C) 1,000 mg PO DAILY@0800 [facility] Last Admin: 01/18/18 09:34 Dose: 1,000 mg Aspirin (Aspirin) 325 mg PO BIDCM [facility] Last Admin: 01/18/18 16:27 Dose: 325 mg Escitalopram Oxalate (Lexapro) 10 mg PO DAILY [facility] Last Admin: 01/18/18 09:35 Dose: 10 mg Famotidine (Pepcid) 20 mg PO DAILY [facility] Last Admin: 01/18/18 09:35 Dose: 20 mg [facility]ontin) [facility] Last Admin: 01/18/18 16:20 Dose: 300 mg Hydrochlorothiazide (Hctz) 25 mg PO DAILY [facility] Last Admin: 01/18/18 09:36 Dose: 25 mg Hydromorphone HCl (Dilaudid) 1 mg IV Q2H PRN PRN PRN Reason: SEVERE PAIN (6-10/10) Last Admin: 01/18/18 22:32 Dose: 1 mg Hydromorphone HCl (Dilaudid) 2 mg PO Q3H PRN PRN PRN Reason: SEVERE PAIN (6-10/10) Last Admin: 01/18/18 13:55 Dose: 2 mg Levofloxacin (Levaquin) 750 mg in 150 mls @ 100 mls/hr IV Q24 [facility] Last Admin: 01/18/18 04:14 Dose: 100 mls/hr Piperacillin Sod/Tazobactam Sod (Zosyn) 3.375 gm in 50 mls @ 12.5 mls/hr IV Q8 [facility] Last Admin: 01/19/18 06:33 Dose: 12.5 mls/hr Sodium Chloride () 250 mls @ 15 mls/hr IV .[id number] PRN PRN Reason: SALINE FLUSH Last Admin: 01/18/18 07:18 Dose: 15 mls/hr Sodium Chloride () 1,000 mls @ 125 mls/hr IV .Q8H [facility] Multivitamins (Multivitamin) [facility] Last Admin: 01/18/18 09:33 Dose: 1 tablet Ondansetron HCl (Zofran) 4 mg IV Q8H PRN PRN PRN Reason: NAUSEA Last Admin: 01/18/18 22:23 Dose: 4 mg Oxybutynin Chloride (Ditropan) 10 mg PO DAILY [facility] Last Admin: 01/18/18 21:44 Dose: 10 mg Oxycodone HCl (Oxyir) 5 mg PO Q6H PRN PRN PRN Reason: SEVERE PAIN (6-10/10) Last Admin: 01/19/18 06:38 Dose: 5 mg Polysaccharide Iron Complex (Ferrex 150) [facility] Last Admin: 01/18/18 09:34 Dose: 150 mg Potassium Chloride (K-Dur) 20 meq PO BIDCM [facility] Last Admin: 01/18/18 16:19 Dose: 20 meq Senna/Docusate Sodium (Senokot-S, Bri-Colace) 2 tablet PO BID [facility] Last Admin: 01/18/18 21:44 Dose: 2 tablet Sodium Chloride () 5 - 30 ml IV UD PRN PRN Reason: SALINE FLUSH Last Admin: 01/19/18 05:49 Dose: 20 ml Venlafaxine HCl (Effexor Xr) 150 mg PO DAILY [facility] Last Admin: 01/18/18 09:37 Dose: 150 mg Venlafaxine HCl (Effexor Xr) 75 mg PO DAILY [facility] Last Admin: 01/18/18 09:38 Dose: 75 mg Assessment/Plan Active and Suspected Problems (Last Updated 12/25/17 @ 16:12 by Mario Chatterjee) Status post bilateral knee replacements (Acute) 1. Presumed pneumococcal pneumonia * I concur with the previous hospitalist as I do not feel that this would qualify as a HCAP or gram-negative pneumonia. * Given the patient's clinical situation would continue with Zosyn for now but likely would discontinue after today based on any deterioration in her response. * Therefore continue with Levaquin for now. * Pulmonary toilet, with aerosols and chest physiotherapy * Check sputum culture, urinary antigens for strep and Legionella * Reviewed repeat chest x-ray essentially shows no change. 2. Tachycardia * Probably with the patient's pneumonia but also pain * EKG showed no acute process other than sinus tachycardia. Troponins are negative. * Patient has been persistently tachycardic since admission. * Report and documentation that the patient is chronically tachycardic. Unclear if that truly the case or not but certainly not a normal finding. * Check an echocardiogram * start the patient on metoprolol but her blood pressure may be an issue. 3. Acute hypoxic respiratory failure * Patient has declined despite no appreciable worsening on her chest x-ray * Check CT angiogram of the chest for pulmonary embolism 4. Post bilateral knee replacements * mgmt per orthopedics 5. DVT prophylaxis with aspirin as management per orthopedics. Discussed with the patient's family at bedside. At this time, I feel the patient will be better suited in the PCU for closer monitoring. Code Visit Inpatient E&M: 01068 Subs Hosp L2
--- NOTE | 2018-01-19 08:25 | ECHOD_ITS ---
Reason For Study: Tachycardia Procedure This was a 2D Doppler, Color Flow transthoracic echocardiogram. Exam performed portable in patient room. Did not use Definity due to increased PAP. Left Ventricle Normal LV size. Left ventricular systolic function is normal. The estimated ejection fraction is 55 %. Transmitral diastolic flow velocities suggest mild (stage 1) diastolic dysfunction (reversed pattern). No regional wall motion abnormalities noted. Right Ventricle Normal RV size. Normal systolic function. Atria Normal left atrium. Normal right atrium. Mitral Valve Normal mitral valve. Mild (1+) eccentric mitral valve insufficiency. Tricuspid Valve Normal tricuspid valve. Mild to moderate (1-2+) tricuspid valve insufficiency. Pulmonary artery systolic pressure is 51 mmHg. Moderate pulmonary hypertension. Aortic Valve Trisinus/trileaflet aortic valve. Pulmonic Valve Normal pulmonic valve. Great Vessels Normal aortic root. The pulmonary artery is normal size. The inferior vena cava is dilated. Pericardium/Pleural No pericardial effusion. MMode/2D Measurements & Calculations LVIDd: 4.6 cm IVSd: 1.1 cm Ao root diam: 3.3 cm LVIDs: 3.3 cm LVPWd: 1.0 cm LA dimension: 3.4 cm RVDd: 4.4 cm FS: 27.0 % LAV(MOD-bp): 37.3 ml LA A4 area: 13.5 cm2 RA A4 area: 13.5 cm2 LAV(MOD-bp) Indexed: 17.9 ml/m2 LAV(MOD-sp2): 39.2 ml LAV(MOD-sp4): 32.5 ml Doppler Measurements & Calculations MV E max brando: 80.6 cm/sec Lat Peak E' Brando: 9.6 cm/sec Med Peak E' Brando: 7.5 cm/sec MV A max brando: 102.0 cm/sec E/E' lat: 8.4 E/E' med: 10.8 MV E/A: 0.79 Ao V2 max: 158.4 cm/sec LV V1 max: 122.5 cm/sec PA V2 max: 97.5 cm/sec Ao max P.0 mmHg LV V1 max P.0 mmHg Ao V2 mean: 123.6 cm/sec Ao mean P.4 mmHg Ao V2 VTI: 25.7 cm PI end-d brando: 110.9 cm/sec TR max brando: 340.0 cm/sec TR max P.3 mmHg Interpretation Summary Normal LV size. Left ventricular systolic function is normal. The estimated ejection fraction is 55 %. Transmitral diastolic flow velocities suggest mild (stage 1) diastolic dysfunction (reversed pattern). Pulmonary artery systolic pressure is 51 mmHg. Moderate pulmonary hypertension. Ordering Physician: Omar Rodriguez Referring Physician: Nathan Torres Performed By: Chata Gallego RDCS, RVT
[2018-01-19] MEDS: 0.9% Normal Saline 1,000 ML 125 ML IV ×2 (08:37→16:16)
[2018-01-19] MEDS: Gabapentin 300 MG Capsule PO ×2 (08:44→16:18)
[2018-01-19] MEDS: Aspirin 325 MG Tablet PO ×2 (08:44→16:19)
[2018-01-19] MEDS: Multivitamins,Therapeutic Tablet 1 TABLET PO (08:44)
[2018-01-19] MEDS: Ascorbic Acid 500 MG Tablet 1000 MG PO (08:44)
[2018-01-19] MEDS: Iron Polysaccharide Complex 150 MG CAPSULE PO (08:44)
--- NOTE | 2018-01-19 08:54 | NURSING ---
Attempt to call report to Bere. She will return call.
--- NOTE | 2018-01-19 09:09 | NURSING ---
Report called to CRISSY Blackburn on PCU.
--- NOTE | 2018-01-19 10:39 | PN.ORTHO_ITS ---
Patient Problems: Active and Suspected Problems (Last Updated 12/25/17 @ 16:12 by Mario Chatterjee) Status post bilateral knee replacements (Acute) Subjective: Postop day 3 status post bilateral total knee arthroplasties. Patient was sent down to the PCU for closer monitoring due to the floor being busy in this patient being a little bit more high demand. Patient had a CTA done this morning which was negative for pulmonary embolism but showed continued bilateral infiltrates consistent with her community-acquired pneumonia. Patient has been seen by hospitalist team or modifying medications to try to get her more rate controlled and has a pending echocardiogram at this time. Patient is currently sitting upright in bed eating and conversive. Patient appears to be better today in my opinion. No other major issues at this time. Vital signs remained stable with a heart rate elevated but being monitored. H& H down slightly most likely related to hemodilution after a few bolus fluids yesterday. - Physical Exam General: Alert, Oriented x3, Cooperative, No apparent distress Musculoskeletal: - - Remains distally neurovascular intact. No calf pain negative Homans. SCDs teds in place. Right knee shows minimal knee effusion. No signs of erythema. Range of motion 0-75. Left knee shows obvious +2 effusion. She still has a blister which is not broken on the lateral aspect. It is not really a blister related to her adhesive dressing. We will continue to monitor. Currently the pain would patient would let me know immediately manipulate the knee readily today. She feels that her pain is improved. Again no calf pain negative Homans. Vital Signs Temp Pulse Resp BP Pulse Ox 98.7 F 116 H 16 104/66 98 01/19/18 09:22 01/19/18 09:22 01/19/18 09:22 01/19/18 09:22 01/19/18 09:22 Oxygen Flow Rate (L/min) 8 Oxygen Delivery Method Venturi Mask Weight: 245 lb 5.992 oz Body Mass Index (BMI) 44.9 Intake and Output for Last 24 Hours 01/17/18 01/18/18 01/19/18 23:59 23:59 23:59 Intake Total 726 / 726 2620 / 2620 1768.7 / 1768.7 Output Total 400 / 400 300 / 300 400 / 400 Balance 326 / 326 2320 / 2320 1368.7 / 1368.7 Laboratory Tests Past 24 Hrs 01/18/18 01/18/18 01/18/18 02:50 12:25 13:20 WBC RBC Hgb Hct MCV MCH MCHC RDW RDW Differential Plt Count MPV Diff Path Review Reviewed Specimen Type Sample Site pH Bicarbonate Actual POC Total CO2 Base Excess O2 Saturation O2 % ABG pCO2 ABG pO2 O2 Delivery Device Blood Gas Notified Whom Blood Gas Notified Time Sodium Potassium Chloride Carbon Dioxide Anion Gap BUN Creatinine Estim Creat Clear Calc Est GFR (MDRD) Af Amer Est GFR (MDRD) Non-Af BUN/Creatinine Ratio Glucose Lactic Acid Calcium Troponin I < 0.02 < 0.02 TSH Urine Color Urine Clarity Urine pH Ur Specific [place] Urine Protein Urine Glucose (UA) Urine Ketones Urine Occult Blood Urine Nitrite Urine Bilirubin Urine Urobilinogen Ur Leukocyte Esterase Urine RBC Urine WBC Ur Squamous Epith Cells Urine Bacteria Urine Mucus 01/18/18 01/19/18 01/19/18 14:10 01:00 01:00 WBC RBC Hgb Hct MCV MCH MCHC RDW RDW Differential Plt Count MPV Diff Path Review Specimen Type Sample Site pH Bicarbonate Actual POC Total CO2 Base Excess O2 Saturation O2 % ABG pCO2 ABG pO2 O2 Delivery Device Blood Gas Notified Whom Blood Gas Notified Time Sodium Potassium Chloride Carbon Dioxide Anion Gap BUN Creatinine Estim Creat Clear Calc Est GFR (MDRD) Af Amer Est GFR (MDRD) Non-Af BUN/Creatinine Ratio Glucose Lactic Acid 2.6 H Calcium Troponin I TSH 1.53 Urine Color Yellow Urine Clarity Sl. Cloudy Urine pH 6.0 Ur Specific [place] 1.010 Urine Protein Negative Urine Glucose (UA) Normal Urine Ketones Negative Urine Occult Blood 10 H Urine Nitrite Negative Urine Bilirubin Negative Urine Urobilinogen 1 H Ur Leukocyte Esterase 100 H Urine RBC 0 SEEN Urine WBC 5-10 SEEN Ur Squamous Epith Cells 0-5 SEEN Urine Bacteria RARE Urine Mucus 0 SEEN 01/19/18 01/19/18 01/19/18 01:02 05:45 05:45 WBC 12.9 H RBC 2.70 L Hgb 8.2 L Hct 26.0 L MCV 96.3 MCH 30.4 MCHC 31.5 L RDW 14.0 RDW Differential 45.9 H Plt Count 170 MPV 10.4 Diff Path Review Specimen Type ART Sample Site L Brachial pH 7.41 Bicarbonate Actual 28.1 H POC Total CO2 29 Base Excess 3 H O2 Saturation 93 L O2 % 40 ABG pCO2 44.8 ABG pO2 68 L O2 Delivery Device Vent Mask Blood Gas Notified Whom HOSP MD Blood Gas Notified Time 55 Sodium 140 Potassium 3.9 Chloride 102 Carbon Dioxide 31.0 Anion Gap 7 BUN 12 Creatinine 0.89 Estim Creat Clear Calc 50.51 Est GFR (MDRD) Af Amer 82 Est GFR (MDRD) Non-Af 68 BUN/Creatinine Ratio 13.5 Glucose 141 H Lactic Acid Calcium 8.1 L Troponin I TSH Urine Color Urine Clarity Urine pH Ur Specific [place] Urine Protein Urine Glucose (UA) Urine Ketones Urine Occult Blood Urine Nitrite Urine Bilirubin Urine Urobilinogen Ur Leukocyte Esterase Urine RBC Urine WBC Ur Squamous Epith Cells Urine Bacteria Urine Mucus 01/19/18 05:45 WBC RBC Hgb Hct MCV MCH MCHC RDW RDW Differential Plt Count MPV Diff Path Review Specimen Type Sample Site pH Bicarbonate Actual POC Total CO2 Base Excess O2 Saturation O2 % ABG pCO2 ABG pO2 O2 Delivery Device Blood Gas Notified Whom Blood Gas Notified Time Sodium Potassium Chloride Carbon Dioxide Anion Gap BUN Creatinine Estim Creat Clear Calc Est GFR (MDRD) Af Amer Est GFR (MDRD) Non-Af BUN/Creatinine Ratio Glucose Lactic Acid 1.8 Calcium Troponin I TSH Urine Color Urine Clarity Urine pH Ur Specific [place] Urine Protein Urine Glucose (UA) Urine Ketones Urine Occult Blood Urine Nitrite Urine Bilirubin Urine Urobilinogen Ur Leukocyte Esterase Urine RBC Urine WBC Ur Squamous Epith Cells Urine Bacteria Urine Mucus Assessment/Plan Active and Suspected Problems (Last Updated 12/25/17 @ 16:12 by Mario Chatterjee) Status post bilateral knee replacements (Acute) Assessment: Status post bilateral total knee arthroplasties. Tachycardia. Community-acquired pneumonia. Plan: At this point time I have held the OxyIR. I would like to try to continue with just oral Dilaudid medication as the family feels that the patient has done better with that at this point in time. Continue with every 3 dosing just with 2 mg. Eliminate IV administration of pain medication if possible to try to eliminate any risk factors for further respiratory depression. Continue with aggressive pulmonary toileting. And continued to mobilize the patient accordingly. We will continue to follow at this time. Any major issues please contact me.
[2018-01-19] MEDS: Venlafaxine XR 150 MG Capsule PO (10:46)
[2018-01-19] MEDS: Venlafaxine XR 75 MG Capsule PO (10:46)
[2018-01-19] MEDS: hydroCHLOROthiazide 25 MG Tablet PO (10:46)
[2018-01-19] MEDS: Senna/Docusate Sodium 1 Tablet 2 TABLET PO ×2 (10:47→21:26)
[2018-01-19] MEDS: Famotidine 20 MG Tablet PO (10:47)
[2018-01-19] MEDS: Metoprolol Tartrate 25 MG Tablet PO (10:47)
[2018-01-19] MEDS: Escitalopram Oxalate 10 MG Tablet PO (10:47)
--- NOTE | 2018-01-19 11:09 | CASEMGMT ---
Social Work Reviewed physician notes and pt is not ready for d/c today. Phone call to Britney in TCU and notified and confirmed bed will be available over the weekend if pt should be discharged. Met with pt and dgt in pt room and informed that plan is for TCU when medically ready and bed will be available over the weekend. Answered questions regarding insurance coverage in TCU and length of stay. Plan: TCU when medically stable ABELARDO Shannon
[2018-01-19] MEDS: Oxybutynin 5 MG Tablet 10 MG PO (12:13)
[2018-01-19] MEDS: HYDROmorphone 2 MG TABLET PO (12:49)
[2018-01-20] VITALS (10 sets, daily range): BP systolic 108–112; BP diastolic 56–57; PULSE 105–123; RESP 18–20; TEMP 36.5–36.9; O2SAT 70–99
[2018-01-20] MEDS: 0.9% Normal Saline 1,000 ML 125 ML IV ×2 (00:04→08:28)
[2018-01-20] MEDS: HYDROmorphone 2 MG TABLET PO ×2 (03:30→10:25)
[2018-01-20] MEDS: Acetaminophen 500 MG Tablet 1000 MG PO (05:08)
[2018-01-20] MEDS: Piperacil/Tazobactam 3.375 GM/50 ML ML IV (05:08)
[2018-01-20] MEDS: 0.9% NaCl Peripheral Flush Adult/Peds IV (05:09)
[2018-01-20 05:20] LABS: Absolute Lymphocyte Count 2.05 X10^3/ul (0.83-4.51); Absolute Neutrophil Count 7.3 X10^3/uL (2.0-7.7); Basophil# 0.02 X10^3/uL; Basophil% 0.2 % (0-1); Eosinophil# 0.67 X10^3/uL; Eosinophils% 5.6 % (0-5); Hematocrit 24.7 % (37-47); Hemoglobin 7.7 g/dl (12.0-15.0); Lymphocyte # 2.05 X10^3/ul (4.0); Lymphocyte % 17.1 % (19-41); Mean Corp Hgb Conc 31.2 g/gl (32-36); Mean Corpuscular Hgb 29.8 pg (27.0-32.0); Mean Corpuscular Volume 95.7 fL (81-99); Mean Platelet Vol. 10.5 fl (6.2-12.0); Monocyte# 1.84 X10^3/uL; Monocyte% 15.4 % (0-10); Neutrophil # 7.29 X10^3/uL (2.7-7.7); Neutrophil % 60.9 % (47-70); Platelet Count 219 K/mm3 (150-450); RBC Distribution Width CV 14.7 % (11.6-14.6); RBC Distribution Width SD 50.8 fl (35.1-43.9); Red Blood Count 2.58 M/mm3 (4.2-5.4)
[2018-01-20 05:24] LABS: Differential Indicated SCAN CRITERIA MET; POSITIVE COUNT NO; POSITIVE DIFFERENTIAL YES; POSITIVE MORPHOLOGY NO
[2018-01-20 05:28] LABS: Anion Gap 6 (5-15); BUN 7 mg/dL (7-18); BUN/Creat Ratio 12.2 RATIO (10-20); Chloride 103 mmol/L (98-107); Creatinine, Serum 0.58 mg/dL (0.55-1.02); EST Glomerular Filtration Rate 112 mL/min (>60); Est Glom Filt Rate - Afr Amer 136 mL/min (>60); Glucose 113 mg/dL (74-106); Potassium 4.8 mmol/L (3.5-5.1); Sodium Level 140 mmol/L (136-145)
[2018-01-20 05:48] LABS: Differential Comment SCANNED; Platelet Estimate ADEQUATE (ADEQ)
[2018-01-20] MEDS: Albuterol 2.5 MG/3 ML VIAL.NEB. INHALATION ×2 (07:41→11:29)
[2018-01-20] MEDS: hydroCHLOROthiazide 25 MG Tablet PO (08:30)
[2018-01-20] MEDS: Famotidine 20 MG Tablet PO (08:30)
[2018-01-20] MEDS: Multivitamins,Therapeutic Tablet 1 TABLET PO (08:30)
[2018-01-20] MEDS: Gabapentin 300 MG Capsule PO (08:30)
[2018-01-20] MEDS: Escitalopram Oxalate 10 MG Tablet PO (08:30)
[2018-01-20] MEDS: Ascorbic Acid 500 MG Tablet 1000 MG PO (08:31)
[2018-01-20] MEDS: Venlafaxine XR 75 MG Capsule PO (08:31)
[2018-01-20] MEDS: Oxybutynin 5 MG Tablet 10 MG PO (08:31)
[2018-01-20] MEDS: Aspirin 325 MG Tablet PO (08:32)
[2018-01-20] MEDS: Iron Polysaccharide Complex 150 MG CAPSULE PO (08:33)
[2018-01-20] MEDS: Venlafaxine XR 150 MG Capsule PO (08:34)
--- NOTE | 2018-01-20 08:50 | PCM.DC.TKR ---
Discharge Activity: Return to Normal Activity, May not drive while taking narcotic pain medications., May Shower, Use Walker May shower in (days): 1 Ice area for (Minutes): 20 Weight Bearing Status: Weight bearing as tolerated Call your doctor if your incision/area has: Continuous Slow Oozing, Sudden Increased Bleeding, Increased Pain/ Swelling, Increased Redness, Foul Smelling Discharge, Swelling at the incision site Call your doctor if you observe: Fever of 101 or Higher, Coldness, Increased Pain, Numbness or Tingling, Change in Color, Inability to urinate, Inability to have a bowel movement, Using more than one pad per hour, Shortness of breath, Dizziness, Fainting spells, Swelling in the ankles, Chest pain, Prolonged hiccoughing, Increased palpitations (irregular heartbeat), Calf discomfort, Uncontrolled pain Change Dressing in (Days):: 2 Remove Dressing in (days):: 2 Cleanse incision/area with: Soap & Water Additional Dressing/Incision Instructions:: Remove dressing in 2 days. Patient may shower at this time. Do not submerge wound. Not touch the wound unless the hands are clean. To need to keep wound covered if any drainage. Allergies/Adverse Reactions: Allergies No Known Allergies Allergy (Verified 01/09/18 10:23) Medications to take at Discharge Hydrochlorothiazide [Hctz] 25 mg PO DAILY 09/28/17 Venlafaxine XR [Effexor Xr] 75 mg PO DAILY 09/28/17 Venlafaxine XR [Effexor Xr] 150 mg PO DAILY 09/28/17 Escitalopram Oxalate [Lexapro] 10 mg PO DAILY 01/09/18 Oxybutynin [Ditropan] 10 mg PO DAILY 01/19/18 Aspirin E.C. [Ecotrin] 325 mg PO BID #30 tab 01/20/18 Buprenorphine [Butrans 5 Mcg/Hr] 2 ea TD QWEEK #4 patch.tdwk 01/20/18 Famotidine [Pepcid] 20 mg PO BID #30 tab 01/20/18 Gabapentin [Neurontin] 300 mg PO BID #30 cap 01/20/18 HydromorphONE [Dilaudid] 2 mg PO Q4H PRN PRN #40 tab 01/20/18 Iron Aspgly,Ps/C/B12/FA/Ca/Suc [Ferrex 150 Forte Plus Capsule] 1 ea PO BID #60 cap 01/20/18 Levofloxacin [Levaquin] 750 mg PO DAILY #5 tab 01/20/18 Metoprolol Tartrate 50 mg PO DAILY #30 tab 01/20/18 The following prescriptions were given: HydromorphONE [Dilaudid] 2 mg PO Q4H PRN PRN #40 tab PRN Reason: Pain Buprenorphine [Butrans 5 Mcg/Hr] 2 ea TD QWEEK #4 patch.tdwk Levofloxacin [Levaquin] 750 mg PO DAILY #5 tab Metoprolol Tartrate 50 mg PO DAILY #30 tab Aspirin E.C. [Ecotrin] 325 mg PO BID #30 tab Famotidine [Pepcid] 20 mg PO BID #30 tab Gabapentin [Neurontin] 300 mg PO BID #30 cap Iron Aspgly,Ps/C/B12/FA/Ca/Suc [Ferrex 150 Forte Plus Capsule] 1 ea PO BID #60 cap Primary Care Physician: Citlalli Collazo,Out of [Primary Care Provider] - Please Follow Up With: Chelita Franklin MD When: 2 Weeks Please Follow Up With: Nathan Torres DO When: [facility] FOR APPT FOR 2 WEEKS Proposed Discharge Date: 01/20/18
--- NOTE | 2018-01-20 09:11 | DS.PCM_ITS ---
Discharge Summary Date of Admission: 01/16/18 Date of Discharge: 01/20/18 Summary: 62-year-old female who was admitted status post bilateral total knee arthroplasties. Patient was admitted to floor for 24 hours of IV antibiotics appropriate IV and p.o. pain medication. Patient had significant pain issues in the early postoperative period and pain management was consulted and subsequent medications were converted which seemed to be at this point time improving the patient's overall pain. The patient had tachycardia and increased respiration rates. Hospitalist team was consulted for evaluation and the patient was found to have community-acquired pneumonia. She was subsequent started on Levaquin and Zosyn and then converted to simply level Levaquin over the next 3 days. Patient H&H has remained stable although dropping as expected status post bilateral total knees. The patient is a history of being a Je[employer]' s [employer] which precluded her from having any form or transfusion. The patient has been on iron supplementation and multivitamin to aid with Reform reformation of her blood stocks. Patient has been ambulatory with therapy at this point time and tolerating regular diet. Patient is positive for bowel movements and for urination. Patient has not had any further fevers and was found medically stable from an orthopedic and medical standpoint. Patient has been on aspirin for DVT prophylaxis-325 p.o. twice daily with GI prophylaxis as well. Due to the concerns about her tachycardia and the pneumonia ultimately a CTA was performed that was negative for pulmonary emboli. Patient has denied any calf pain or any form of Homans examination throughout her stay. At this point time patient be transferred to the transitional care unit for continued long term facility rehab. Assessment: After orthopedics status post bilateral total knee arthroplasties for osteo-arthritis. Community-acquired pneumonia-stable. Postoperative anemia stable. Tachycardia-medically treated. Plan: Again at this point time patient be transferred to the transitional care unit for her inpatient/skilled nurse facility rehab stay. Patient will continue with GI prophylaxis and DVT prophylaxis for a total of 14 days from date of operation. After the 14 day. I would recommend patient being on 81 mg p.o. daily of aspirin. If the patient develops a symptomatic GI issue from the aspirin that I would convert to 325 p.o. daily for consideration for 81 mg p.o. twice daily. Patient will continue with Levaquin for an additional 5 days. Hospitalist team is recommended 50 mg p.o. daily to aid with rate control. Again no signs of any cardiac issues develop in the postoperative period. I will continue to follow the patient on the floor. Patient's dressing can be taken down in 1-2 days. Patient may shower at this time. Encourage excellent range of motion. There is any issues please contact me.
--- NOTE | 2018-01-20 09:13 | PCM.PN.HOSP ---
Patient Problems: Active and Suspected Problems (Last Updated 12/25/17 @ 16:12 by Mario Chatterjee) Pneumonia, pneumococcal (Acute) Tachycardia (Acute) Subjective: Breathing better. Patient and family state that she has been known to have tachycardia for years but has not had that adequately looked into. Patient does endorse that she does not follow with doctors routinely. Vitals/I&O's: Vital Signs Temp Pulse Resp BP Pulse Ox 36.9 C 109 H 20 H 108/56 L 96 01/20/18 03:25 01/20/18 08:30 01/20/18 07:41 01/20/18 03:25 01/20/18 07:41 Oxygen Flow Rate (L/min) 4 Oxygen Delivery Method Nasal Cannula Weight: 111.3 kg Body Mass Index (BMI) 44.9 Intake and Output for Last 24 Hours 01/18/18 01/19/18 01/20/18 23:59 23:59 23:59 Intake Total 2620 / 2620 3400.7 / 3400.7 2117.0 / 2117.0 Output Total 300 / 300 400 / 400 Balance 2320 / 2320 3000.7 / 3000.7 2117.0 / 2117.0 General: Alert, Cooperative, No apparent distress HEENT: Atraumatic, Normocephalic Neck: No Nodes, Thyroid Normal Size and Texture Lungs: Normal air movement, No rhonchi, No wheeze, - - Crackles in the bases Cardiovascular: Regular rate, Regular Rhythm, Normal S1, Normal S2, No murmurs Abdomen: Bowel Sounds Present, Soft, Non Tender, Non-Distended, Obese Extremities: No Calf Tenderness Psych/Mental Status: Normal Affect, Appropriate Microbiology Past 72 Hours 01/18/18 14:10 Urine, Clean Catch Urine Culture - Final Culture exhibits no growth. Laboratory Results 01/20/18 05:05: WBC 12.0 H, RBC 2.58 L, Hgb 7.7 L, Hct 24.7 L, MCV 95.7, MCH 29.8, MCHC 31.2 L, RDW 14.7 H, RDW Differential 50.8 H, Plt Count 219, MPV 10.5, Immature Gran % (Auto) 0.800, Neut % (Auto) 60.9, Lymph % (Auto) 17.1 L, [place] % (Auto) 15.4 H, Eos % (Auto) 5.6 H, Baso % (Auto) 0.2, Absolute Neuts (auto) 7.3, Absolute Lymphs (auto) 2.05, Total Counted Not Reportable, Differential Comment SCANNED, Diff Path Review May foll, Platelet Estimate ADEQUATE 01/20/18 05:05: Sodium 140, Potassium 4.8, Chloride 103, Carbon Dioxide 31.0, Anion Gap 6, BUN 7, Creatinine 0.58, Estim Creat Clear Calc 77.50, Est GFR (MDRD) Af Amer 136, Est GFR (MDRD) Non-Af 112, BUN/Creatinine Ratio 12.2, Glucose 113 H, Calcium 8.0 L Current Medications Acetaminophen (Tylenol) 1,000 mg PO Q8 [facility] Last Admin: 01/20/18 05:08 Dose: 1,000 mg Albuterol Sulfate (Ventolin Aerosols) 2.5 mg INHALATION Q4H.RT [facility] Last Admin: 01/20/18 07:41 Dose: 2.5 mg Ascorbic Acid (Vitamin C) 1,000 mg PO DAILY@0800 [facility] Last Admin: 01/20/18 08:31 Dose: 1,000 mg Aspirin ([facility]in) [facility] Last Admin: 01/20/18 08:32 Dose: 325 mg Escitalopram Oxalate (Lexapro) 10 mg PO DAILY [facility] Last Admin: 01/20/18 08:30 Dose: 10 mg Famotidine (Pepcid) 20 mg PO DAILY [facility] Last Admin: 01/20/18 08:30 Dose: 20 mg Gabapentin (Neurontin) 300 [facility] Last Admin: 01/20/18 08:30 Dose: 300 mg Hydrochlorothiazide (Hctz) 25 mg PO DAILY [facility] Last Admin: 01/20/18 08:30 Dose: 25 mg Hydromorphone HCl (Dilaudid) 2 mg PO Q3H PRN PRN PRN Reason: SEVERE PAIN (6-08/22) Last Admin: 01/20/18 03:30 Dose: 2 mg Sodium Chloride () 1,000 mls @ 125 mls/hr IV .Q8H [facility] Last Admin: 01/20/18 08:28 Dose: 125 mls/hr Levofloxacin (Levaquin) 750 mg PO DAILY@0600 [facility] Metoprolol Tartrate (Lopressor (Beta Susy)) 50 mg PO BID [facility] Multivitamins (Multivitamin) [facility] Last Admin: 01/20/18 08:30 Dose: 1 tablet Ondansetron HCl (Zofran) 4 mg IV Q8H PRN PRN PRN Reason: NAUSEA Last Admin: 01/18/18 22:23 Dose: 4 mg Oxybutynin Chloride (Ditropan) 10 mg PO DAILY [facility] Last Admin: 01/20/18 08:31 Dose: 10 mg Oxycodone HCl (Oxyir) 5 mg PO Q6H PRN PRN PRN Reason: SEVERE PAIN (6-08/22) Last Admin: 01/19/18 06:38 Dose: 5 mg Polysaccharide Iron Complex (Ferrex 150) 150 [facility] Last Admin: 01/20/18 08:33 Dose: 150 mg Senna/Docusate Sodium (Senokot-S, Bri-Colace) 2 tablet PO BID [facility] Last Admin: 01/20/18 08:32 Dose: Not Given Sodium Chloride () 5 - 30 ml IV UD PRN PRN Reason: SALINE FLUSH Last Admin: 01/20/18 05:09 Dose: 20 ml Venlafaxine HCl (Effexor Xr) 150 mg PO DAILY [facility] Last Admin: 01/20/18 08:34 Dose: 150 mg Venlafaxine HCl (Effexor Xr) 75 mg PO DAILY [facility] Last Admin: 01/20/18 08:31 Dose: 75 mg Assessment/Plan Active and Suspected Problems (Last Updated 12/25/17 @ 16:12 by Mario Chatterjee) Pneumonia, pneumococcal (Acute) Tachycardia (Acute) 1. Presumed pneumococcal pneumonia I concur with the previous hospitalist as I do not feel that this would qualify as a HCAP or gram-negative pneumonia. Given the patient's clinical situation would continue with Zosyn for now but likely would discontinue after today based on any deterioration in her response. Therefore continue with Levaquin for now. Pulmonary toilet, with aerosols and chest physiotherapy Check sputum culture, urinary antigens for strep and Legionella Reviewed repeat chest x-ray essentially shows no change. Discontinue Zosyn and discontinue with Levaquin to complete 7 days of antibiotics. 2. Tachycardia Probably with the patient's pneumonia but also pain EKG showed no acute process other than sinus tachycardia. Troponins are negative. Patient has been persistently tachycardic since admission. Report and documentation that the patient is chronically tachycardic. Unclear if that truly the case or not but certainly not a normal finding. Check an echocardiogram start the patient on metoprolol but her blood pressure may be an issue. Improved. Would continue with metoprolol 50 mg twice daily Echocardiogram not performed. I do not feel it necessary to hold the patient's discharge weaning echocardiogram as a feel a lot of this tachycardia and respiratory distress is more chronic. 3. Acute hypoxic respiratory failure Patient has declined despite no appreciable worsening on her chest x-ray CTA of the chest showed no pulmonary embolism I feel is partly related to pneumonia would also feel there is some other issues regards to patient's morbid obesity. Patient states that she has been assessed for sleep apnea and told me that was negative but I would advise further follow-up in regards her primary care doctor and possible referral to pulmonology. Still would recommend a echocardiogram but that does not need to be done during the hospitalization. 4. Post bilateral knee replacements mgmt per orthopedics 5. DVT prophylaxis with aspirin as management per orthopedics. Discussed with Dr. Torres, patient can be discharged to the transitional care unit. Code Visit Inpatient E&M: 86142 Subs Hosp L2
--- NOTE | 2018-01-20 09:16 | PN_ITS ---
Patient Problems: Active and Suspected Problems (Last Updated 12/25/17 @ 16:12 by Mario Chatterjee) Pneumonia, pneumococcal (Acute) Tachycardia (Acute) Subjective: Breathing better. Patient and family state that she has been known to have tachycardia for years but has not had that adequately looked into. Patient does endorse that she does not follow with doctors routinely. Vitals/I&O's: Vital Signs Temp Pulse Resp BP Pulse Ox 36.9 C 109 H 20 H 108/56 L 96 01/20/18 03:25 01/20/18 08:30 01/20/18 07:41 01/20/18 03:25 01/20/18 07:41 Oxygen Flow Rate (L/min) 4 Oxygen Delivery Method Nasal Cannula Weight: 111.3 kg Body Mass Index (BMI) 44.9 Intake and Output for Last 24 Hours 01/18/18 01/19/18 01/20/18 23:59 23:59 23:59 Intake Total 2620 / 2620 3400.7 / 3400.7 2117.0 / 2117.0 Output Total 300 / 300 400 / 400 Balance 2320 / 2320 3000.7 / 3000.7 2117.0 / 2117.0 General: Alert, Cooperative, No apparent distress HEENT: Atraumatic, Normocephalic Neck: No Nodes, Thyroid Normal Size and Texture Lungs: Normal air movement, No rhonchi, No wheeze, - - Crackles in the bases Cardiovascular: Regular rate, Regular Rhythm, Normal S1, Normal S2, No murmurs Abdomen: Bowel Sounds Present, Soft, Non Tender, Non-Distended, Obese Extremities: No Calf Tenderness Psych/Mental Status: Normal Affect, Appropriate Microbiology Past 72 Hours 01/18/18 14:10 Urine, Clean Catch Urine Culture - Final Culture exhibits no growth. Laboratory Results 01/20/18 05:05: WBC 12.0 H, RBC 2.58 L, Hgb 7.7 L, Hct 24.7 L, MCV 95.7, MCH 29.8, MCHC 31.2 L, RDW 14.7 H, RDW Differential 50.8 H, Plt Count 219, MPV 10.5 , Immature Gran % (Auto) 0.800, Neut % (Auto) 60.9, Lymph % (Auto) 17.1 L, [place] % (Auto) 15.4 H, Eos % (Auto) 5.6 H, Baso % (Auto) 0.2, Absolute Neuts (auto) 7.3, Absolute Lymphs (auto) 2.05, Total Counted Not Reportable, Differential Comment SCANNED, Diff Path Review May foll, Platelet Estimate ADEQUATE 01/20/18 05:05: Sodium 140, Potassium 4.8, Chloride 103, Carbon Dioxide 31.0, Anion Gap 6, BUN 7, Creatinine 0.58, Estim Creat Clear Calc 77.50, Est GFR (MDRD ) Af Amer 136, Est GFR (MDRD) Non-Af 112, BUN/Creatinine Ratio 12.2, Glucose 113 H, Calcium 8.0 L Current Medications Acetaminophen (Tylenol) 1,000 mg PO Q8 [facility] Last Admin: 01/20/18 05:08 Dose: 1,000 mg Albuterol Sulfate (Ventolin Aerosols) 2.5 mg INHALATION Q4H.RT [facility] Last Admin: 01/20/18 07:41 Dose: 2.5 mg Ascorbic Acid (Vitamin C) 1,000 mg PO DAILY@0800 [facility] Last Admin: 01/20/18 08:31 Dose: 1,000 mg [facility]) [facility] Last Admin: 01/20/18 08:32 Dose: 325 mg Escitalopram Oxalate (Lexapro) 10 mg PO DAILY [facility] Last Admin: 01/20/18 08:30 Dose: 10 mg Famotidine (Pepcid) 20 mg PO DAILY [facility] Last Admin: 01/20/18 08:30 Dose: 20 mg Gabapentin ([facility]ontin) [facility] Last Admin: 01/20/18 08:30 Dose: 300 mg Hydrochlorothiazide (Hctz) 25 mg PO DAILY [facility] Last Admin: 01/20/18 08:30 Dose: 25 mg Hydromorphone HCl (Dilaudid) 2 mg PO Q3H PRN PRN PRN Reason: SEVERE PAIN (6-08/22) Last Admin: 01/20/18 03:30 Dose: 2 mg Sodium Chloride () 1,000 mls @ 125 mls/hr IV .Q8H [facility] Last Admin: 01/20/18 08:28 Dose: 125 mls/hr Levofloxacin (Levaquin) 750 mg PO DAILY@0600 [facility] Metoprolol Tartrate (Lopressor (Beta Susy)) 50 mg PO BID [facility] Multivitamins (Multivitamin) [facility] Last Admin: 01/20/18 08:30 Dose: 1 tablet Ondansetron HCl (Zofran) 4 mg IV Q8H PRN PRN PRN Reason: NAUSEA Last Admin: 01/18/18 22:23 Dose: 4 mg Oxybutynin Chloride (Ditropan) 10 mg PO DAILY [facility] Last Admin: 01/20/18 08:31 Dose: 10 mg Oxycodone HCl (Oxyir) 5 mg PO Q6H PRN PRN PRN Reason: SEVERE PAIN (6-08/22) Last Admin: 01/19/18 06:38 Dose: 5 mg Polysaccharide Iron Complex (Ferrex 150) [facility] Last Admin: 01/20/18 08:33 Dose: 150 mg Senna/Docusate Sodium (Senokot-S, Bri-Colace) 2 tablet PO BID [facility] Last Admin: 01/20/18 08:32 Dose: Not Given Sodium Chloride () 5 - 30 ml IV UD PRN PRN Reason: SALINE FLUSH Last Admin: 01/20/18 05:09 Dose: 20 ml Venlafaxine HCl (Effexor Xr) 150 mg PO DAILY [facility] Last Admin: 01/20/18 08:34 Dose: 150 mg Venlafaxine HCl (Effexor Xr) 75 mg PO DAILY [facility] Last Admin: 01/20/18 08:31 Dose: 75 mg Assessment/Plan Active and Suspected Problems (Last Updated 12/25/17 @ 16:12 by Mario Chatterjee) Pneumonia, pneumococcal (Acute) Tachycardia (Acute) 1. Presumed pneumococcal pneumonia * I concur with the previous hospitalist as I do not feel that this would qualify as a HCAP or gram-negative pneumonia. * Given the patient's clinical situation would continue with Zosyn for now but likely would discontinue after today based on any deterioration in her response. * Therefore continue with Levaquin for now. * Pulmonary toilet, with aerosols and chest physiotherapy * Check sputum culture, urinary antigens for strep and Legionella * Reviewed repeat chest x-ray essentially shows no change. * Discontinue Zosyn and discontinue with Levaquin to complete 7 days of antibiotics. 2. Tachycardia * Probably with the patient's pneumonia but also pain * EKG showed no acute process other than sinus tachycardia. Troponins are negative. * Patient has been persistently tachycardic since admission. * Report and documentation that the patient is chronically tachycardic. Unclear if that truly the case or not but certainly not a normal finding. * Check an echocardiogram * start the patient on metoprolol but her blood pressure may be an issue. * Improved. Would continue with metoprolol 50 mg twice daily * Echocardiogram not performed. I do not feel it necessary to hold the patient' s discharge weaning echocardiogram as a feel a lot of this tachycardia and respiratory distress is more chronic. 3. Acute hypoxic respiratory failure * Patient has declined despite no appreciable worsening on her chest x-ray * CTA of the chest showed no pulmonary embolism * I feel is partly related to pneumonia would also feel there is some other issues regards to patient's morbid obesity. Patient states that she has been assessed for sleep apnea and told me that was negative but I would advise further follow-up in regards her primary care doctor and possible referral to pulmonology. Still would recommend a echocardiogram but that does not need to be done during the hospitalization. 4. Post bilateral knee replacements * mgmt per orthopedics 5. DVT prophylaxis with aspirin as management per orthopedics. Discussed with Dr. Torres, patient can be discharged to the transitional care unit. Code Visit Inpatient E&M: 84929 Subs Hosp L2
[2018-01-20] MEDS: Metoprolol Tartrate 50 MG Tablet PO (10:22)
[2018-01-20] MEDS: levoFLOXacin 750 MG Tablet PO (10:22)
--- NOTE | 2018-01-20 11:34 | NURSING ---
report called to [facility]
[2018-01-24 10:53] LABS: Pathologist Review Reviewed
== END 2018-01-20 11:41 | disposition skilled nursing facility (03) | DRG 461 ==
LOC: ACINP 05:16 → MS3 05:29 → PCU 01-19 13:15
PROVIDERS: Anesthesiology; Hospitalist; Admitting Provider Orthopaedic Surgery
PROC: 0SRC0JZ Replacement of Right Knee Joint with Synthetic Substitute, Open Approach (ICD-10-PCS; CPT 27447; principal; 2018-01-16 06:50)
DX: M17.0 Bilateral primary osteoarthritis of knee (principal); J96.01 Acute respiratory failure with hypoxia; E66.01 Morbid (severe) obesity due to excess calories; J13 Pneumonia due to Streptococcus pneumoniae; D62 Acute posthemorrhagic anemia; Z68.41 Body mass index [BMI] 40.0-44.9, adult; I10 Essential (primary) hypertension; F32.9 Major depressive disorder, single episode, unspecified
CPT/HCPCS: 36415; 36600; 71045; 71275; 73560; 80048; 80076; 81001; 82803; 83605; 84443; 84484; 85025; 85027; 85610; 85730; 87081; 87086; 88305; 88311; 93005; 93306; 94640; 94667; 94668; 94762; 97110; 97116; 97162; 97166; 97530; 97535; 97803; J3010; J7030; J7040; J7050; J7120; Q9967; A4216; J2405

== ENCOUNTER 2018-01-20 12:00 | Inpatient (IN) | payer MEDICARE, MEDICAID, SELFPAY ==
--- NOTE | 2018-01-20 12:10 | NURSING ---
PT ARRIVED FROM PCU VIA BED
[2018-01-20 13:22] VITALS: BP 117/79; PULSE 106; PULSE 112; RESP 16; RESP 20; TEMP 36.5; O2SAT 93; BMI 43.0; BMI 43.4
--- NOTE | 2018-01-20 14:05 | RAD_ITS ---
STUDY: X-RAY - ABDOMEN/PELVIS REASON FOR EXAM: Female, 62 years old. Constipation. TECHNIQUE: Single AP view of the abdomen / pelvis. COMPARISON: None. FINDINGS: There is a nonspecific gaseous colon. The examination is limited due to patient body habitus. The liver appears to be enlarged. Normal soft tissue structures. Normal visualized osseous structures. RAD/Abdomen Single View (Portable) IMPRESSION: Nonspecific gas pattern. Hepatomegaly. Electronically Signed: Rikki Correia MD at 15:11 EST Tel , Service support ,
[2018-01-20] MEDS: Ipratropium/Albuterol Sulfate 3 ML AMPUL.NEB INHALATION ×2 (15:52→18:50)
[2018-01-20 15:54] VITALS: PULSE 107; RESP 16; O2SAT 97
[2018-01-20 16:00] VITALS: BP 114/70; PULSE 110; RESP 18; TEMP 36.4; O2SAT 97
[2018-01-20] MEDS: Gabapentin 300 MG Capsule PO (16:25)
[2018-01-20] MEDS: Aspirin E.C. 325 MG Tablet PO (16:25)
[2018-01-20] MEDS: Iron Polysaccharide Complex 150 MG CAPSULE PO (16:25)
[2018-01-20 18:50] VITALS: PULSE 108; RESP 18
--- NOTE | 2018-01-20 19:47 | PCM.HP.STD ---
Problem List (1) Osteoarthritis of knees, bilateral Status: Chronic (2) Hypokalemia Status: Chronic (3) Community acquired pneumonia Status: Acute (4) Morbid obesity Status: Chronic (5) Depression Status: Chronic (6) Hypertension Status: Chronic History of Present Illness Date of Admission: 01/20/18 Chief Complaint: Here for rehabilitation, strengthening, prior to discharge home with spouse. The patient is a 62 year old Female with below past medical history with followin01/16/2018 Bilateral total knee replacement with Dr. Torres. 01/18/2018 Dr. Rivas consulted for fever, tachycardia. Heart rate 130, low grade fever. Chest X-ray showed right base infiltrate. IV Levaquin, IV Zosyn, started for community acquired pneumonia. IV Dilaudid for pain. 01/18/2018 Continue IV Levaquin, IV Zosyn. 01/19/2018 Chest X-ray right base infiltrate unchanged. 01/19/2018 Heart rate 130, improved with 500cc IV fluid bolus. 01/19/2018 CTA chest showed bilateral pneumonia, no pulmonary embolism. Pneumococcal pneumonia, not gram negative pneumonia, not HCAP. Pulmonary toilet, aerosols, chest physiotherapy. Troponin negative. 01/20/2018 Admit to TCU for rehabilitation, strengthening, prior to discharge home with spouse. [] Past Medical History Past Medical History (Chronic Problems): Chronic Problems (Last Updated 12/25/17 @ 16:12 by Mario Chatterjee) Osteoarthritis of knees, bilateral (Chronic) Hypokalemia (Chronic) Morbid obesity (Chronic) Osteoarthritis (Chronic) Depression (Chronic) Hypertension (Chronic) Allergies No Known Allergies Allergy (Verified 01/09/18 10:23) Home Medications: Ambulatory Orders Medication Instructions Recorded Hydrochlorothiazide [Hctz] 25 mg PO DAILY 09/28/17 Venlafaxine XR [Effexor Xr] 75 mg PO DAILY 09/28/17 Venlafaxine XR [Effexor Xr] 150 mg PO DAILY 09/28/17 Escitalopram Oxalate [Lexapro] 10 mg PO DAILY 01/09/18 Oxybutynin [Ditropan] 10 mg PO DAILY 01/19/18 Aspirin E.C. [Ecotrin] 325 mg PO BID 01/20/18 Buprenorphine [Butrans 5 Mcg/Hr] 2 each TD QWEEK 01/20/18 Famotidine [Pepcid] 20 mg PO BID 01/20/18 Gabapentin [Neurontin] 300 mg PO BID 01/20/18 HydromorphONE [Dilaudid] 2 mg PO Q4H PRN PRN #40 tab 01/20/18 Iron Aspgly,Ps/C/B12/FA/Ca/Suc 1 each PO BID 01/20/18 [Ferrex 150 Forte Plus Capsule] Levofloxacin [Levaquin] 750 mg PO DAILY 01/20/18 Metoprolol Tartrate 50 mg PO DAILY 01/20/18 Surgical History: total knee arthroplasty - Bilateral. 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 Lives: Spouse/ Significant Other Smoking Status: Former smoker Tobacco Use: Non-smoker Alcohol: None Drugs: None - *Family History Paternal History Items: Heart Disease Sibling History Items: Cancer, Heart Disease Review of Systems Constitutional: Denies: Chills, Fever, Weight Change HEENT: Denies: Head Aches, Sinus Congestion, Sinus Drainage Cardiovascular: Denies: Chest Pain, Palpitations Respiratory: Denies: Cough, Shortness of breath at rest, Sputum production Gastrointestinal: Denies: Abdominal Pain, Nausea, Vomiting Genitourinary: Denies: Dysuria Musculoskeletal: Denies: Joint Pain, Joint Tenderness Skin: Denies: Rash, Wounds Neurological: Denies: Numbness, Tingling, Focal weakness Psychiatric: Denies: Anxiety, Depression, Homicidal Ideations, Suicidal Ideations Hematologic/ Lymphatic: Denies: Easy Bruising, Easy Bleeding VTE Information - Inpt Only VTE Present on Admission: No VTE Mechan Device Prophylaxis: Knee High ANGELINA Hose VTE Pharm Prophylaxis ordered?: Yes Patient Problems: Active and Suspected Problems (Last Updated 12/25/17 @ 16:12 by Mario Chatterjee) Community acquired pneumonia (Acute) - Physical Exam General: Alert, Oriented x3, Cooperative HEENT: Atraumatic, PERRLA, EOMI, Normocephalic Neck: Supple, No JVD, Negative Carotid Bruits Lungs: Clear to auscultation, Normal air movement Cardiovascular: Regular rate, No murmurs Abdomen: Bowel Sounds Present, Soft, Non Tender Extremities: No edema, Capillary Refill Less than 3 Seconds Skin: No rashes, No breakdown, Incision - Bilateral knee clean, dry, intact. Musculoskeletal: No Tenderness to Palpation of Joints or Extremities Neurological: Cranial nerves II-XII grossly intact Psych/Mental Status: Normal Affect, Appropriate Vital Signs Temp Pulse Resp BP Pulse Ox 97.5 F L 108 H 18 114/70 97 01/20/18 16:00 01/20/18 18:50 01/20/18 18:50 01/20/18 16:00 01/20/18 16:00 Oxygen Flow Rate (L/min) 3 Oxygen Delivery Method Nasal Cannula Weight: 122 kg Body Mass Index (BMI) 43.4 Intake and Output for Last 24 Hours 01/18/18 01/19/18 01/20/18 23:59 23:59 23:59 Intake Total 240 / 240 Balance 240 / 240 Assessment/Plan Active and Suspected Problems (Last Updated 12/25/17 @ 16:12 by Mario Chatterjee) Community acquired pneumonia (Acute) 62 year old female with below past medical history hospitalized for bilateral total knee replacement with Dr. Torres 01/16/2018, complicated by right basilar community acquired pneumonia, tachycardia, admitted to TCU with debility, for rehabilitation, strengthening, prior to discharge home with spouse. Debility - PT/OT. Pain - Tylenol 1000MG Q8H PRN mild pain, Buprenorphine 2 patches TD Qweek, Dilaudid 1-2MG Q4H PRN severe pain. Bowel - KUB clear, Miralax 17GM daily, Dulcolax 10MG NE PRN. Pneumonia vaccination - Administer Prevnar 13 and/or Pneumovax 23 as necessary. DVT prophylaxis - Aspirin 325MG BID. Depression - Effexor 225MG daily, Lexapro 10MG daily. Neuropathic pain - Gabapentin 300MG BID. Hypertension - Metoprolol 50MG daily, HCTZ 25MG daily. Shortness of breath - Duoneb 3ML Q6HWA. Iron deficiency anemia - Ferrex 150MG BID. Community Acquired Pneumonia - Levaquin 750MG daily thru 01/25/2018. Skin irritation - Calmoseptine twice daily to buttocks. Tinea Corporis - Nystatin powder BID. Overactive blader - Oxybutynin 10MG daily.
--- NOTE | 2018-01-20 19:52 | HP.PCM_ITS ---
Problem List (1) Osteoarthritis of knees, bilateral Status: Chronic (2) Hypokalemia Status: Chronic (3) Community acquired pneumonia Status: Acute (4) Morbid obesity Status: Chronic (5) Depression Status: Chronic (6) Hypertension Status: Chronic History of Present Illness Date of Admission: 01/20/18 Chief Complaint: Here for rehabilitation, strengthening, prior to discharge home with spouse. The patient is a 62 year old Female with below past medical history with followin01/16/2018 Bilateral total knee replacement with Dr. Torres. 01/18/2018 Dr. Rivas consulted for fever, tachycardia. Heart rate 130, low grade fever. Chest X-ray showed right base infiltrate. IV Levaquin, IV Zosyn, started for community acquired pneumonia. IV Dilaudid for pain. 01/18/2018 Continue IV Levaquin, IV Zosyn. 01/19/2018 Chest X-ray right base infiltrate unchanged. 01/19/2018 Heart rate 130, improved with 500cc IV fluid bolus. 01/19/2018 CTA chest showed bilateral pneumonia, no pulmonary embolism. Pneumococcal pneumonia, not gram negative pneumonia, not HCAP. Pulmonary toilet, aerosols, chest physiotherapy. Troponin negative. 01/20/2018 Admit to TCU for rehabilitation, strengthening, prior to discharge home with spouse. [] Past Medical History Past Medical History (Chronic Problems): Chronic Problems (Last Updated 12/25/17 @ 16:12 by Mario Chatterjee) Osteoarthritis of knees, bilateral (Chronic) Hypokalemia (Chronic) Morbid obesity (Chronic) Osteoarthritis (Chronic) Depression (Chronic) Hypertension (Chronic) Allergies No Known Allergies Allergy (Verified 01/09/18 10:23) Home Medications: Ambulatory Orders Medication Instructions Recorded Hydrochlorothiazide [Hctz] 25 mg PO DAILY 09/28/17 Venlafaxine XR [Effexor Xr] 75 mg PO DAILY 09/28/17 Venlafaxine XR [Effexor Xr] 150 mg PO DAILY 09/28/17 Escitalopram Oxalate [Lexapro] 10 mg PO DAILY 01/09/18 Oxybutynin [Ditropan] 10 mg PO DAILY 01/19/18 Aspirin E.C. [Ecotrin] 325 mg PO BID 01/20/18 Buprenorphine [Butrans 5 Mcg/Hr] 2 each TD QWEEK 01/20/18 Famotidine [Pepcid] 20 mg PO BID 01/20/18 Gabapentin [Neurontin] 300 mg PO BID 01/20/18 HydromorphONE [Dilaudid] 2 mg PO Q4H PRN PRN #40 tab 01/20/18 Iron Aspgly,Ps/C/B12/FA/Ca/Suc 1 each PO BID 01/20/18 [Ferrex 150 Forte Plus Capsule] Levofloxacin [Levaquin] 750 mg PO DAILY 01/20/18 Metoprolol Tartrate 50 mg PO DAILY 01/20/18 Surgical History: total knee arthroplasty - Bilateral. 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[employer] ANALYST history Lives: Spouse/ Significant Other Smoking Status: Former smoker Tobacco Use: Non-smoker Alcohol: None Drugs: None - *Family History Paternal History Items: Heart Disease Sibling History Items: Cancer, Heart Disease Review of Systems Constitutional: Denies: Chills, Fever, Weight Change HEENT: Denies: Head Aches, Sinus Congestion, Sinus Drainage Cardiovascular: Denies: Chest Pain, Palpitations Respiratory: Denies: Cough, Shortness of breath at rest, Sputum production Gastrointestinal: Denies: Abdominal Pain, Nausea, Vomiting Genitourinary: Denies: Dysuria Musculoskeletal: Denies: Joint Pain, Joint Tenderness Skin: Denies: Rash, Wounds Neurological: Denies: Numbness, Tingling, Focal weakness Psychiatric: Denies: Anxiety, Depression, Homicidal Ideations, Suicidal Ideations Hematologic/ Lymphatic: Denies: Easy Bruising, Easy Bleeding VTE Information - Inpt Only VTE Present on Admission: No VTE Mechan Device Prophylaxis: Knee High ANGELINA Hose VTE Pharm Prophylaxis ordered?: Yes Patient Problems: Active and Suspected Problems (Last Updated 12/25/17 @ 16:12 by Mario Chatterjee) Community acquired pneumonia (Acute) - Physical Exam General: Alert, Oriented x3, Cooperative HEENT: Atraumatic, PERRLA, EOMI, Normocephalic Neck: Supple, No JVD, Negative Carotid Bruits Lungs: Clear to auscultation, Normal air movement Cardiovascular: Regular rate, No murmurs Abdomen: Bowel Sounds Present, Soft, Non Tender Extremities: No edema, Capillary Refill Less than 3 Seconds Skin: No rashes, No breakdown, Incision - Bilateral knee clean, dry, intact. Musculoskeletal: No Tenderness to Palpation of Joints or Extremities Neurological: Cranial nerves II-XII grossly intact Psych/Mental Status: Normal Affect, Appropriate Vital Signs Temp Pulse Resp BP Pulse Ox 97.5 F L 108 H 18 114/70 97 01/20/18 16:00 01/20/18 18:50 01/20/18 18:50 01/20/18 16:00 01/20/18 16:00 Oxygen Flow Rate (L/min) 3 Oxygen Delivery Method Nasal Cannula Weight: 122 kg Body Mass Index (BMI) 43.4 Intake and Output for Last 24 Hours 01/18/18 01/19/18 01/20/18 23:59 23:59 23:59 Intake Total 240 / 240 Balance 240 / 240 Assessment/Plan Active and Suspected Problems (Last Updated 12/25/17 @ 16:12 by Mario Chatterjee) Community acquired pneumonia (Acute) 62 year old female with below past medical history hospitalized for bilateral total knee replacement with Dr. Torres 01/16/2018, complicated by right basilar community acquired pneumonia, tachycardia, admitted to TCU with debility, for rehabilitation, strengthening, prior to discharge home with spouse. * Debility - PT/OT. * Pain - Tylenol 1000MG Q8H PRN mild pain, Buprenorphine 2 patches TD Qweek, Dilaudid 1-2MG Q4H PRN severe pain. * Bowel - KUB clear, Miralax 17GM daily, Dulcolax 10MG IA PRN. * Pneumonia vaccination - Administer Prevnar 13 and/or Pneumovax 23 as necessary. * DVT prophylaxis - Aspirin 325MG BID. * Depression - Effexor 225MG daily, Lexapro 10MG daily. * Neuropathic pain - Gabapentin 300MG BID. * Hypertension - Metoprolol 50MG daily, HCTZ 25MG daily. * Shortness of breath - Duoneb 3ML Q6HWA. * Iron deficiency anemia - Ferrex 150MG BID. * Community Acquired Pneumonia - Levaquin 750MG daily thru 01/25/2018. * Skin irritation - Calmoseptine twice daily to buttocks. * Tinea Corporis - Nystatin powder BID. * Overactive blader - Oxybutynin 10MG daily.
[2018-01-20] MEDS: Menthol/Lanolin/Calamine/Znox 113 GM Tube 1 APPLIC TOPICAL (20:43)
[2018-01-20] MEDS: Nystatin Powder 15gm Bottle 1 APPLIC TOPICAL (20:43)
--- NOTE | 2018-01-21 05:25 | NURSING ---
Pt informed this nurse, a f/u is scheduled with Dr Torres on 01/24/18. Please call Brian's office to see if he will come to TCU to see pt.
[2018-01-21] MEDS: Oxybutynin 5 MG Tablet 10 MG PO (05:31)
[2018-01-21] MEDS: hydroCHLOROthiazide 25 MG Tablet PO (05:31)
[2018-01-21] MEDS: Venlafaxine XR 75 MG Capsule PO (05:31)
[2018-01-21] MEDS: Venlafaxine XR 150 MG Capsule PO (05:31)
[2018-01-21] MEDS: levoFLOXacin 750 MG Tablet PO (05:32)
[2018-01-21] MEDS: Escitalopram Oxalate 10 MG Tablet PO (05:32)
[2018-01-21] MEDS: Nystatin Powder 15gm Bottle 1 APPLIC TOPICAL ×2 (05:32→19:39)
[2018-01-21] MEDS: HYDROmorphone 2 MG TABLET PO ×2 (05:32→19:55)
[2018-01-21] MEDS: Menthol/Lanolin/Calamine/Znox 113 GM Tube 1 APPLIC TOPICAL ×2 (05:32→19:39)
[2018-01-21 05:33] VITALS: PULSE 103
[2018-01-21] MEDS: Metoprolol Tartrate 50 MG Tablet PO (05:33)
[2018-01-21 06:11] LABS: Differential Indicated SCAN CRITERIA MET; Hematocrit 25.8 % (37-47); Lymphocyte % 23.1 % (19-41); Mean Corpuscular Hgb 29.7 pg (27.0-32.0); Mean Corpuscular Volume 95.9 fL (81-99); Mean Platelet Vol. 10.3 fl (6.2-12.0); Neutrophil % 56.4 % (47-70); POSITIVE COUNT NO; POSITIVE DIFFERENTIAL YES; POSITIVE MORPHOLOGY NO; Platelet Count 247 K/mm3 (150-450); RBC Distribution Width CV 14.9 % (11.6-14.6); RBC Distribution Width SD 51.3 fl (35.1-43.9); Red Blood Count 2.69 M/mm3 (4.2-5.4); White Blood Count 10.8 K/mm3 (4.4-11.0)
[2018-01-21 06:12] LABS: Absolute Lymphocyte Count 2.48 X10^3/ul (0.83-4.51); Absolute Neutrophil Count 6.1 X10^3/uL (2.0-7.7); Absolute Nucleated RBC Count 0.33 10^3/uL (0-5); Basophil# 0.02 X10^3/uL; Basophil% 0.2 % (0-1); Eosinophil# 0.45 X10^3/uL; Eosinophils% 4.2 % (0-5); Lymphocyte # 2.48 X10^3/ul (4.0); Monocyte# 1.61 X10^3/uL; NRBC Flagged by Analyzer 3.1 % (0-5); Neutrophil # 6.07 X10^3/uL (2.7-7.7)
--- NOTE | 2018-01-21 06:22 | NURSING ---
Butrans patched noted to bilateral deltoids.
[2018-01-21 06:24] LABS: Anion Gap 7 (5-15); BUN 8 mg/dL (7-18); BUN/Creat Ratio 14.4 RATIO (10-20); Calcium,Total 8.5 mg/dL (8.5-10.1); Chloride 102 mmol/L (98-107); Creatinine, Serum 0.55 mg/dL (0.55-1.02); EST Glomerular Filtration Rate 117 mL/min (>60); Est Glom Filt Rate - Afr Amer 142 mL/min (>60); Estimated Creatinine Clearance 96.74 ml/min; Glucose 94 mg/dL (74-106); Potassium 3.6 mmol/L (3.5-5.1); Sodium Level 139 mmol/L (136-145)
[2018-01-21 06:31] LABS: Differential Comment SCANNED
[2018-01-21 07:13] VITALS: PULSE 105; RESP 16; O2SAT 90
[2018-01-21] MEDS: Ipratropium/Albuterol Sulfate 3 ML AMPUL.NEB INHALATION ×3 (07:13→18:58)
[2018-01-21] MEDS: Aspirin E.C. 325 MG Tablet PO ×2 (08:37→16:37)
[2018-01-21] MEDS: Gabapentin 300 MG Capsule PO ×2 (08:37→16:37)
[2018-01-21] MEDS: Iron Polysaccharide Complex 150 MG CAPSULE PO ×2 (08:37→16:37)
[2018-01-21] MEDS: Tuberculin,Purif.prot.deriv. 50 TU/ML Vial 5 ML ID (10:07)
[2018-01-21 14:01] VITALS: PULSE 96; RESP 16
--- NOTE | 2018-01-21 15:38 | NURSING ---
daughter & granddaughter came to desk to report that her mother is not acting like herself. PT requesting from family a pop, family refused to get her soda and pt got OOB, walked around bed to sit in visitor chair and took one front wheel off walker, was gonna throw wheel at daughter. Dr Latham notified, Levaquin d/c'd and cefdinir and zithromax ordered. Daughter updated.
[2018-01-21 16:00] VITALS: BP 112/65; PULSE 104; RESP 20; TEMP 36.8; O2SAT 99
[2018-01-21] MEDS: Azithromycin 250 MG Tablet 500 MG PO (16:36)
[2018-01-21] MEDS: Cefdinir 300 MG Capsule PO (16:37)
[2018-01-21 19:10] VITALS: PULSE 102; RESP 20
[2018-01-22] MEDS: Venlafaxine XR 150 MG Capsule PO (05:41)
[2018-01-22 05:42] VITALS: BP 115/58; PULSE 107
[2018-01-22] MEDS: Venlafaxine XR 75 MG Capsule PO (05:42)
[2018-01-22] MEDS: Nystatin Powder 15gm Bottle 1 APPLIC TOPICAL ×2 (05:42→19:43)
[2018-01-22] MEDS: Menthol/Lanolin/Calamine/Znox 113 GM Tube 1 APPLIC TOPICAL ×2 (05:42→19:42)
[2018-01-22] MEDS: Metoprolol Tartrate 50 MG Tablet PO (05:42)
[2018-01-22] MEDS: Cefdinir 300 MG Capsule PO ×2 (05:42→16:47)
[2018-01-22] MEDS: hydroCHLOROthiazide 25 MG Tablet PO (05:42)
[2018-01-22] MEDS: Escitalopram Oxalate 10 MG Tablet PO (05:42)
--- NOTE | 2018-01-22 05:44 | NURSING ---
Butrans patches noted to bilateral deltoids
[2018-01-22 07:05] VITALS: PULSE 100; RESP 21; O2SAT 99
[2018-01-22] MEDS: Ipratropium/Albuterol Sulfate 3 ML AMPUL.NEB INHALATION (07:05)
[2018-01-22] MEDS: Oxybutynin 5 MG Tablet 10 MG PO (08:20)
[2018-01-22] MEDS: Gabapentin 300 MG Capsule PO ×2 (08:20→16:46)
[2018-01-22] MEDS: Aspirin E.C. 325 MG Tablet PO ×2 (08:20→16:47)
[2018-01-22] MEDS: Iron Polysaccharide Complex 150 MG CAPSULE PO ×2 (08:20→16:46)
[2018-01-22] MEDS: HYDROmorphone 2 MG TABLET PO ×2 (09:15→16:45)
--- NOTE | 2018-01-22 11:02 | PCM.PN.RX ---
<GregoryVenkat barajas D - Last Filed: 01/22/18 11:02> Progress Note - Pharmacy Subjective: TCU Admission Objective: Allergies No Known Allergies Allergy (Verified 01/09/18 10:23) Home Medications Medication Instructions Recorded Hydrochlorothiazide [Hctz] 25 mg PO DAILY 09/28/17 Venlafaxine XR [Effexor Xr] 75 mg PO DAILY 09/28/17 Venlafaxine XR [Effexor Xr] 150 mg PO DAILY 09/28/17 Escitalopram Oxalate [Lexapro] 10 mg PO DAILY 01/09/18 Oxybutynin [Ditropan] 10 mg PO DAILY 01/19/18 Aspirin E.C. [Ecotrin] 325 mg PO BID 01/20/18 Buprenorphine [Butrans 5 Mcg/Hr] 2 each TD QWEEK 01/20/18 Famotidine [Pepcid] 20 mg PO BID 01/20/18 Gabapentin [Neurontin] 300 mg PO BID 01/20/18 HydromorphONE [Dilaudid] 2 mg PO Q4H PRN PRN #40 tab 01/20/18 Iron Aspgly,Ps/C/B12/FA/Ca/Suc 1 each PO BID 01/20/18 [Ferrex 150 Forte Plus Capsule] Levofloxacin [Levaquin] 750 mg PO DAILY 01/20/18 Metoprolol Tartrate 50 mg PO DAILY 01/20/18 Current Medications Generic Name Dose Route Start Last Admin Trade Name Freq PRN Reason Stop Dose Admin Acetaminophen 1,000 mg 01/20/18 20:07 Tylenol PO Q8H PRN PRN MILD PAIN (1-3/10) Albuterol/Ipratropium 3 ml 01/20/18 13:45 01/22/18 07:05 Duoneb INHALATION 3 ml Q6HWA.RT YOLANDA Administration Aspirin 325 mg 01/20/18 18:00 01/22/18 08:20 Ecotrin PO 325 mg BIDCM YOLANDA Administration Azithromycin 250 mg 01/22/18 10:00 Zithromax PO 01/26/18 10:01 Q24 YOLANDA Bisacodyl 10 mg 01/20/18 20:07 Dulcolax PO DAILY PRN Constipation Calamine/Phenol 1 applic 01/20/18 22:00 01/22/18 05:42 Calmoseptine Ointment TOPICAL 1 applicatio 06,2200 [facility] Administration Protocol Cefdinir 300 mg 01/21/18 18:00 01/22/18 05:42 Omnicef [Equiv] PO 01/26/18 23:59 300 mg Q12 YOLANDA Administration Escitalopram Oxalate 10 mg 01/21/18 06:00 01/22/18 05:42 Lexapro PO 10 mg DAILY YOLANDA Administration Gabapentin 300 mg 01/20/18 17:00 01/22/18 08:20 Neurontin PO 300 mg BIDCM YOLANDA Administration Hydrochlorothiazide 25 mg 01/21/18 06:00 01/22/18 05:42 Hctz PO 25 mg DAILY YOLANDA Administration Hydromorphone HCl 2 mg 01/22/18 08:28 01/22/18 09:15 Dilaudid PO 2 mg Q4H PRN PRN Administration SEVERE PAIN () Metoprolol Tartrate 50 mg 01/21/18 06:00 01/22/18 05:42 Lopressor (Beta Susy) PO 50 mg DAILY [facility] Administration Nystatin 1 applic 01/20/18 22:00 01/22/18 05:42 Mycostatin Powder TOPICAL 1 applicatio 599,2200 [facility] Administration Protocol Oxybutynin Chloride 10 mg 01/21/18 06:00 01/22/18 08:20 Ditropan PO 10 mg DAILYCM [facility] Administration Polyethylene Glycol 17 gm 01/21/18 06:00 01/22/18 05:42 Miralax PO Not Given DAILY [facility] Polysaccharide Iron Complex 150 mg 01/20/18 17:00 01/22/18 08:20 Ferrex 150 PO 150 mg BIDCM [facility] Administration Tuberculin PPD 5 tu 01/28/18 10:00 Tubersol, Aplisol, Ppd ID 01/28/18 10:01 X1 ONE Venlafaxine HCl 150 mg 01/21/18 06:00 01/22/18 05:41 Effexor Xr PO 150 mg DAILY [facility] Administration Venlafaxine HCl 75 mg 01/21/18 06:00 01/22/18 05:42 Effexor Xr PO 75 mg DAILY [facility] Administration Problem List (Last Updated 12/25/17 @ 16:12 by Mario Chatterjee) Osteoarthritis of knees, bilateral (Chronic) Hypokalemia (Chronic) Community acquired pneumonia (Acute) Morbid obesity (Chronic) Vital Signs Temp Pulse Resp BP Pulse Ox 98.2 F 100 21 H 115/58 L 99 01/21/18 16:00 01/22/18 07:05 01/22/18 07:05 01/22/18 05:42 01/22/18 07:05 Oxygen Flow Rate (L/min) 3 Oxygen Delivery Method Nasal Cannula Weight: 122 kg Body Mass Index (BMI) 43.4 Sodium 139 mmol/L (136-145) 01/21/18 05:15 Potassium 3.6 mmol/L (3.5-5.1) 01/21/18 05:15 Chloride 102 mmol/L (98-107) 01/21/18 05:15 Carbon Dioxide 30.0 mmol/L (21.0-32.0) 01/21/18 05:15 Anion Gap 7 (5-15) 01/21/18 05:15 BUN 8 mg/dL (7-18) 01/21/18 05:15 Creatinine 0.55 mg/dL (0.55-1.02) 01/21/18 05:15 Est GFR (MDRD) Af Amer 142 mL/min (>60) 01/21/18 05:15 Est GFR (MDRD) Non-Af 117 mL/min (>60) 01/21/18 05:15 BUN/Creatinine Ratio 14.4 RATIO (10-20) 01/21/18 05:15 Glucose 94 mg/dL (74-106) 01/21/18 05:15 Assessment/Plan: 1) Pain APAP for mild pain, buprenorphine patch, gabapentin, hydromorphone for severe pain. Continue to monitor prn medication use, daily pain scores. 2) ID Azithromycin, cefdinir until 01/26. WBC wnl, requiring 3L NCO2, afebrile. Continue to monitor s/s infection. * 3) HTN HCTZ daily, metoprolol. HR consistently > 100 bpm, SBP in 1-teens. Consider reduce dose of HCTZ and increase metoprolol dose. Continue to monitor BP/HR. 4) Pulm Ipratropium/albuterol aerosols scheduled. Continue to monitor for shortness of breath. 5) DVT PPx ASA twice daily. Continue to monitor s/s bleeding/clot. 6) Oxybutynin daily. Continue to monitor urinary symptoms. 7) Derm Calmoseptine, nystatin topically. Continue to monitor clinically. 8) Nutrition Fe daily. Continue to monitor clinically. Psychotropic Medications: * 9) Depression Venlafaxine daily, escitalopram daily. Continue to monitor s/s depression, sweating, shaking, fever. Consider d/c escitalopram. Unnecessary Medications: None Bowel Regimen: 10) PEG daily, bisacodyl prn. Continue to monitor prn medication use, for constipation/diarrhea. Date of Note:: 01/22/18 - Provider Comments Provider responsibility: Provider responsible to enter orders to implement recommendations <Lenny Latham Chi - Last Filed: 01/22/18 12:51> Progress Note - Pharmacy Subjective: [] Objective: Allergies No Known Allergies Allergy (Verified 01/09/18 10:23) Home Medications Medication Instructions Recorded Hydrochlorothiazide [Hctz] 25 mg PO DAILY 09/28/17 Venlafaxine XR [Effexor Xr] 75 mg PO DAILY 09/28/17 Venlafaxine XR [Effexor Xr] 150 mg PO DAILY 09/28/17 Escitalopram Oxalate [Lexapro] 10 mg PO DAILY 01/09/18 Oxybutynin [Ditropan] 10 mg PO DAILY 01/19/18 Aspirin E.C. [Ecotrin] 325 mg PO BID 01/20/18 Buprenorphine [Butrans 5 Mcg/Hr] 2 each TD QWEEK 01/20/18 Famotidine [Pepcid] 20 mg PO BID 01/20/18 Gabapentin [Neurontin] 300 mg PO BID 01/20/18 HydromorphONE [Dilaudid] 2 mg PO Q4H PRN PRN #40 tab 01/20/18 Iron Aspgly,Ps/C/B12/FA/Ca/Suc 1 each PO BID 01/20/18 [Ferrex 150 Forte Plus Capsule] Levofloxacin [Levaquin] 750 mg PO DAILY 01/20/18 Metoprolol Tartrate 50 mg PO DAILY 01/20/18 Current Medications Generic Name Dose Route Start Last Admin Trade Name Freq PRN Reason Stop Dose Admin Acetaminophen 1,000 mg 01/20/18 20:07 Tylenol PO Q8H PRN PRN MILD PAIN (1-3/10) Albuterol/Ipratropium 3 ml 01/20/18 13:45 01/22/18 07:05 Duoneb INHALATION 3 ml Q6HWA.RT YOLANDA Administration Aspirin 325 mg 01/20/18 18:00 01/22/18 08:20 Ecotrin PO 325 mg BIDCM YOLANDA Administration Azithromycin 250 mg 01/22/18 10:00 01/22/18 11:08 Zithromax PO 01/26/18 10:01 250 mg Q24 YOLANDA Administration Bisacodyl 10 mg 01/20/18 20:07 Dulcolax PO DAILY PRN Constipation Calamine/Phenol 1 applic 01/20/18 22:00 01/22/18 05:42 Calmoseptine Ointment TOPICAL 1 applicatio 0600,2200 [facility] Administration Protocol Cefdinir 300 mg 01/21/18 18:00 01/22/18 05:42 Omnicef [Equiv] PO 01/26/18 23:59 300 mg Q12 YOLANDA Administration Escitalopram Oxalate 10 mg 01/21/18 06:00 01/22/18 05:42 Lexapro PO 10 mg DAILY YOLANDA Administration Gabapentin 300 mg 01/20/18 17:00 01/22/18 08:20 Neurontin PO 300 mg BIDCM [facility] Administration Hydrochlorothiazide 25 mg 01/21/18 06:00 01/22/18 05:42 Hctz PO 25 mg DAILY [facility] Administration Hydromorphone HCl 2 mg 01/22/18 08:28 01/22/18 09:15 Dilaudid PO 2 mg Q4H PRN PRN Administration SEVERE PAIN (6-10/10) Metoprolol Tartrate 50 mg 01/21/18 06:00 01/22/18 05:42 Lopressor (Beta Susy) PO 50 mg DAILY [facility] Administration Nystatin 1 applic 01/20/18 22:00 01/22/18 05:42 Mycostatin Powder TOPICAL 1 applicatio 0600,2200 [facility] Administration Protocol Oxybutynin Chloride 10 mg 01/21/18 06:00 01/22/18 08:20 Ditropan PO 10 mg DAILYCM [facility] Administration Polyethylene Glycol 17 gm 01/21/18 06:00 01/22/18 05:42 Miralax PO Not Given DAILY [facility] Polysaccharide Iron Complex 150 mg 01/20/18 17:00 01/22/18 08:20 Ferrex 150 PO 150 mg BIDCM [facility] Administration Tuberculin PPD 5 tu 01/28/18 10:00 Tubersol, Aplisol, Ppd ID 01/28/18 10:01 X1 ONE Venlafaxine HCl 150 mg 01/21/18 06:00 01/22/18 05:41 Effexor Xr PO 150 mg DAILY YOLANDA Administration Venlafaxine HCl 75 mg 01/21/18 06:00 01/22/18 05:42 Effexor Xr PO 75 mg DAILY YOLANDA Administration Problem List (Last Updated 12/25/17 @ 16:12 by Mario Chatterjee) Osteoarthritis of knees, bilateral (Chronic) Hypokalemia (Chronic) Community acquired pneumonia (Acute) Morbid obesity (Chronic) Vital Signs Temp Pulse Resp BP Pulse Ox 98.2 F 100 21 H 115/58 L 99 01/21/18 16:00 01/22/18 07:05 01/22/18 07:05 01/22/18 05:42 01/22/18 07:05 Oxygen Flow Rate (L/min) 3 Oxygen Delivery Method Nasal Cannula Weight: 122 kg Body Mass Index (BMI) 43.4 Sodium 139 mmol/L (136-145) 01/21/18 05:15 Potassium 3.6 mmol/L (3.5-5.1) 01/21/18 05:15 Chloride 102 mmol/L (98-107) 01/21/18 05:15 Carbon Dioxide 30.0 mmol/L (21.0-32.0) 01/21/18 05:15 Anion Gap 7 (5-15) 01/21/18 05:15 BUN 8 mg/dL (7-18) 01/21/18 05:15 Creatinine 0.55 mg/dL (0.55-1.02) 01/21/18 05:15 Est GFR (MDRD) Af Amer 142 mL/min (>60) 01/21/18 05:15 Est GFR (MDRD) Non-Af 117 mL/min (>60) 01/21/18 05:15 BUN/Creatinine Ratio 14.4 RATIO (10-20) 01/21/18 05:15 Glucose 94 mg/dL (74-106) 01/21/18 05:15 Assessment/Plan: Psychotropic Medications: Unnecessary Medications: Bowel Regimen: - Provider Comments Provider responsibility: Provider responsible to enter orders to implement recommendations Provider Comments to Recommendations by Pharmacy: Agree
[2018-01-22] MEDS: Azithromycin 250 MG Tablet PO (11:08)
--- NOTE | 2018-01-22 11:13 | PHA.CONS_ITS ---
<GregoryVenkat barajas D - Last Filed: 01/22/18 11:02> Progress Note - Pharmacy Subjective: TCU Admission Objective: Allergies No Known Allergies Allergy (Verified 01/09/18 10:23) Home Medications Medication Instructions Recorded Hydrochlorothiazide [Hctz] 25 mg PO DAILY 09/28/17 Venlafaxine XR [Effexor Xr] 75 mg PO DAILY 09/28/17 Venlafaxine XR [Effexor Xr] 150 mg PO DAILY 09/28/17 Escitalopram Oxalate [Lexapro] 10 mg PO DAILY 01/09/18 Oxybutynin [Ditropan] 10 mg PO DAILY 01/19/18 Aspirin E.C. [Ecotrin] 325 mg PO BID 01/20/18 Buprenorphine [Butrans 5 Mcg/Hr] 2 each TD QWEEK 01/20/18 Famotidine [Pepcid] 20 mg PO BID 01/20/18 Gabapentin [Neurontin] 300 mg PO BID 01/20/18 HydromorphONE [Dilaudid] 2 mg PO Q4H PRN PRN #40 tab 01/20/18 Iron Aspgly,Ps/C/B12/FA/Ca/Suc 1 each PO BID 01/20/18 [Ferrex 150 Forte Plus Capsule] Levofloxacin [Levaquin] 750 mg PO DAILY 01/20/18 Metoprolol Tartrate 50 mg PO DAILY 01/20/18 Current Medications Generic Name Dose Route Start Last Admin Trade Name Freq PRN Reason Stop Dose Admin Acetaminophen 1,000 mg 01/20/18 20:07 Tylenol PO Q8H PRN PRN MILD PAIN (1-3/10) Albuterol/Ipratropium 3 ml 01/20/18 13:45 01/22/18 07:05 Duoneb INHALATION 3 ml Q6HWA.RT YOLANDA Administration Aspirin 325 mg 01/20/18 18:00 01/22/18 08:20 Ecotrin PO 325 mg BIDCM YOLANDA Administration Azithromycin 250 mg 01/22/18 10:00 Zithromax PO 01/26/18 10:01 Q24 YOLANDA Bisacodyl 10 mg 01/20/18 20:07 Dulcolax PO DAILY PRN Constipation Calamine/Phenol 1 applic 01/20/18 22:00 01/22/18 05:42 Calmoseptine Ointment TOPICAL 1 applicatio 06,2200 [facility] Administration Protocol Cefdinir 300 mg 01/21/18 18:00 01/22/18 05:42 Omnicef [Equiv] PO 01/26/18 23:59 300 mg Q12 YOLANDA Administration Escitalopram Oxalate 10 mg 01/21/18 06:00 01/22/18 05:42 Lexapro PO 10 mg DAILY YOLANDA Administration Gabapentin 300 mg 01/20/18 17:00 01/22/18 08:20 Neurontin PO 300 mg BIDCM YOLANDA Administration Hydrochlorothiazide 25 mg 01/21/18 06:00 01/22/18 05:42 Hctz PO 25 mg DAILY YOLANDA Administration Hydromorphone HCl 2 mg 01/22/18 08:28 01/22/18 09:15 Dilaudid PO 2 mg Q4H PRN PRN Administration SEVERE PAIN () Metoprolol Tartrate 50 mg 01/21/18 06:00 01/22/18 05:42 Lopressor (Beta Susy) PO 50 mg DAILY [facility] Administration Nystatin 1 applic 01/20/18 22:00 01/22/18 05:42 Mycostatin Powder TOPICAL 1 applicatio 599,2200 [facility] Administration Protocol Oxybutynin Chloride 10 mg 01/21/18 06:00 01/22/18 08:20 Ditropan PO 10 mg DAILYCM [facility] Administration Polyethylene Glycol 17 gm 01/21/18 06:00 01/22/18 05:42 Miralax PO Not Given DAILY [facility] Polysaccharide Iron Complex 150 mg 01/20/18 17:00 01/22/18 08:20 Ferrex 150 PO 150 mg BIDCM [facility] Administration Tuberculin PPD 5 tu 01/28/18 10:00 Tubersol, Aplisol, Ppd ID 01/28/18 10:01 X1 ONE Venlafaxine HCl 150 mg 01/21/18 06:00 01/22/18 05:41 Effexor Xr PO 150 mg DAILY [facility] Administration Venlafaxine HCl 75 mg 01/21/18 06:00 01/22/18 05:42 Effexor Xr PO 75 mg DAILY [facility] Administration Problem List (Last Updated 12/25/17 @ 16:12 by Mario Chatterjee) Osteoarthritis of knees, bilateral (Chronic) Hypokalemia (Chronic) Community acquired pneumonia (Acute) Morbid obesity (Chronic) Vital Signs Temp Pulse Resp BP Pulse Ox 98.2 F 100 21 H 115/58 L 99 01/21/18 16:00 01/22/18 07:05 01/22/18 07:05 01/22/18 05:42 01/22/18 07:05 Oxygen Flow Rate (L/min) 3 Oxygen Delivery Method Nasal Cannula Weight: 122 kg Body Mass Index (BMI) 43.4 Sodium 139 mmol/L (136-145) 01/21/18 05:15 Potassium 3.6 mmol/L (3.5-5.1) 01/21/18 05:15 Chloride 102 mmol/L (98-107) 01/21/18 05:15 Carbon Dioxide 30.0 mmol/L (21.0-32.0) 01/21/18 05:15 Anion Gap 7 (5-15) 01/21/18 05:15 BUN 8 mg/dL (7-18) 01/21/18 05:15 Creatinine 0.55 mg/dL (0.55-1.02) 01/21/18 05:15 Est GFR (MDRD) Af Amer 142 mL/min (>60) 01/21/18 05:15 Est GFR (MDRD) Non-Af 117 mL/min (>60) 01/21/18 05:15 BUN/Creatinine Ratio 14.4 RATIO (10-20) 01/21/18 05:15 Glucose 94 mg/dL (74-106) 01/21/18 05:15 Assessment/Plan: 1) Pain APAP for mild pain, buprenorphine patch, gabapentin, hydromorphone for severe pain. Continue to monitor prn medication use, daily pain scores. 2) ID Azithromycin, cefdinir until 01/26. WBC wnl, requiring 3L NCO2, afebrile. Continue to monitor s/s infection. * 3) HTN HCTZ daily, metoprolol. HR consistently > 100 bpm, SBP in 1-teens. Consider reduce dose of HCTZ and increase metoprolol dose. Continue to monitor BP/HR. 4) Pulm Ipratropium/albuterol aerosols scheduled. Continue to monitor for shortness of breath. 5) DVT PPx ASA twice daily. Continue to monitor s/s bleeding/clot. 6) Oxybutynin daily. Continue to monitor urinary symptoms. 7) Derm Calmoseptine, nystatin topically. Continue to monitor clinically. 8) Nutrition Fe daily. Continue to monitor clinically. Psychotropic Medications: * 9) Depression Venlafaxine daily, escitalopram daily. Continue to monitor s/s depression, sweating, shaking, fever. Consider d/c escitalopram. Unnecessary Medications: None Bowel Regimen: 10) PEG daily, bisacodyl prn. Continue to monitor prn medication use, for constipation/diarrhea. Date of Note:: 01/22/18 - Provider Comments Provider responsibility: Provider responsible to enter orders to implement recommendations <Lenny Latham Chi - Last Filed: 01/22/18 12:51> Progress Note - Pharmacy Subjective: [] Objective: Allergies No Known Allergies Allergy (Verified 01/09/18 10:23) Home Medications Medication Instructions Recorded Hydrochlorothiazide [Hctz] 25 mg PO DAILY 09/28/17 Venlafaxine XR [Effexor Xr] 75 mg PO DAILY 09/28/17 Venlafaxine XR [Effexor Xr] 150 mg PO DAILY 09/28/17 Escitalopram Oxalate [Lexapro] 10 mg PO DAILY 01/09/18 Oxybutynin [Ditropan] 10 mg PO DAILY 01/19/18 Aspirin E.C. [Ecotrin] 325 mg PO BID 01/20/18 Buprenorphine [Butrans 5 Mcg/Hr] 2 each TD QWEEK 01/20/18 Famotidine [Pepcid] 20 mg PO BID 01/20/18 Gabapentin [Neurontin] 300 mg PO BID 01/20/18 HydromorphONE [Dilaudid] 2 mg PO Q4H PRN PRN #40 tab 01/20/18 Iron Aspgly,Ps/C/B12/FA/Ca/Suc 1 each PO BID 01/20/18 [Ferrex 150 Forte Plus Capsule] Levofloxacin [Levaquin] 750 mg PO DAILY 01/20/18 Metoprolol Tartrate 50 mg PO DAILY 01/20/18 Current Medications Generic Name Dose Route Start Last Admin Trade Name Freq PRN Reason Stop Dose Admin Acetaminophen 1,000 mg 01/20/18 20:07 Tylenol PO Q8H PRN PRN MILD PAIN (1-3/10) Albuterol/Ipratropium 3 ml 01/20/18 13:45 01/22/18 07:05 Duoneb INHALATION 3 ml Q6HWA.RT YOLANDA Administration Aspirin 325 mg 01/20/18 18:00 01/22/18 08:20 Ecotrin PO 325 mg BIDCM YOLANDA Administration Azithromycin 250 mg 01/22/18 10:00 01/22/18 11:08 Zithromax PO 01/26/18 10:01 250 mg Q24 YOLANDA Administration Bisacodyl 10 mg 01/20/18 20:07 Dulcolax PO DAILY PRN Constipation Calamine/Phenol 1 applic 01/20/18 22:00 01/22/18 05:42 Calmoseptine Ointment TOPICAL 1 applicatio 0600,2200 [facility] Administration Protocol Cefdinir 300 mg 01/21/18 18:00 01/22/18 05:42 Omnicef [Equiv] PO 01/26/18 23:59 300 mg Q12 YOLANDA Administration Escitalopram Oxalate 10 mg 01/21/18 06:00 01/22/18 05:42 Lexapro PO 10 mg DAILY YOLANDA Administration Gabapentin 300 mg 01/20/18 17:00 01/22/18 08:20 Neurontin PO 300 mg BIDCM [facility] Administration Hydrochlorothiazide 25 mg 01/21/18 06:00 01/22/18 05:42 Hctz PO 25 mg DAILY [facility] Administration Hydromorphone HCl 2 mg 01/22/18 08:28 01/22/18 09:15 Dilaudid PO 2 mg Q4H PRN PRN Administration SEVERE PAIN (6-10/10) Metoprolol Tartrate 50 mg 01/21/18 06:00 01/22/18 05:42 Lopressor (Beta Susy) PO 50 mg DAILY [facility] Administration Nystatin 1 applic 01/20/18 22:00 01/22/18 05:42 Mycostatin Powder TOPICAL 1 applicatio 0600,2200 [facility] Administration Protocol Oxybutynin Chloride 10 mg 01/21/18 06:00 01/22/18 08:20 Ditropan PO 10 mg DAILYCM [facility] Administration Polyethylene Glycol 17 gm 01/21/18 06:00 01/22/18 05:42 Miralax PO Not Given DAILY [facility] Polysaccharide Iron Complex 150 mg 01/20/18 17:00 01/22/18 08:20 Ferrex 150 PO 150 mg BIDCM [facility] Administration Tuberculin PPD 5 tu 01/28/18 10:00 Tubersol, Aplisol, Ppd ID 01/28/18 10:01 X1 ONE Venlafaxine HCl 150 mg 01/21/18 06:00 01/22/18 05:41 Effexor Xr PO 150 mg DAILY YOLANDA Administration Venlafaxine HCl 75 mg 01/21/18 06:00 01/22/18 05:42 Effexor Xr PO 75 mg DAILY YOLANDA Administration Problem List (Last Updated 12/25/17 @ 16:12 by Mario Chatterjee) Osteoarthritis of knees, bilateral (Chronic) Hypokalemia (Chronic) Community acquired pneumonia (Acute) Morbid obesity (Chronic) Vital Signs Temp Pulse Resp BP Pulse Ox 98.2 F 100 21 H 115/58 L 99 01/21/18 16:00 01/22/18 07:05 01/22/18 07:05 01/22/18 05:42 01/22/18 07:05 Oxygen Flow Rate (L/min) 3 Oxygen Delivery Method Nasal Cannula Weight: 122 kg Body Mass Index (BMI) 43.4 Sodium 139 mmol/L (136-145) 01/21/18 05:15 Potassium 3.6 mmol/L (3.5-5.1) 01/21/18 05:15 Chloride 102 mmol/L (98-107) 01/21/18 05:15 Carbon Dioxide 30.0 mmol/L (21.0-32.0) 01/21/18 05:15 Anion Gap 7 (5-15) 01/21/18 05:15 BUN 8 mg/dL (7-18) 01/21/18 05:15 Creatinine 0.55 mg/dL (0.55-1.02) 01/21/18 05:15 Est GFR (MDRD) Af Amer 142 mL/min (>60) 01/21/18 05:15 Est GFR (MDRD) Non-Af 117 mL/min (>60) 01/21/18 05:15 BUN/Creatinine Ratio 14.4 RATIO (10-20) 01/21/18 05:15 Glucose 94 mg/dL (74-106) 01/21/18 05:15 Assessment/Plan: Psychotropic Medications: Unnecessary Medications: Bowel Regimen: - Provider Comments Provider responsibility: Provider responsible to enter orders to implement recommendations Provider Comments to Recommendations by Pharmacy: Agree
[2018-01-22 16:50] VITALS: BP 111/60; PULSE 109; RESP 18; TEMP 37.1; O2SAT 96
--- NOTE | 2018-01-22 19:45 | NURSING ---
Butrans patched noted to bilateral deltoids.
[2018-01-22 19:50] VITALS: PULSE 117; RESP 20
[2018-01-22 19:57] VITALS: O2SAT 86
[2018-01-23 06:29] VITALS: BP 132/76; PULSE 99
[2018-01-23] MEDS: Venlafaxine XR 150 MG Capsule PO (06:29)
[2018-01-23] MEDS: Escitalopram Oxalate 10 MG Tablet PO (06:29)
[2018-01-23] MEDS: hydroCHLOROthiazide 25 MG Tablet PO (06:29)
[2018-01-23] MEDS: Cefdinir 300 MG Capsule PO ×2 (06:29→17:05)
[2018-01-23] MEDS: Metoprolol Tartrate 50 MG Tablet PO (06:29)
[2018-01-23] MEDS: Venlafaxine XR 75 MG Capsule PO (06:29)
[2018-01-23] MEDS: Nystatin Powder 15gm Bottle 1 APPLIC TOPICAL ×2 (06:32→20:39)
[2018-01-23] MEDS: Menthol/Lanolin/Calamine/Znox 113 GM Tube 1 APPLIC TOPICAL ×2 (06:33→20:39)
[2018-01-23 06:34] VITALS: PULSE 102; RESP 20; O2SAT 100
[2018-01-23] MEDS: Iron Polysaccharide Complex 150 MG CAPSULE PO ×2 (08:35→17:05)
[2018-01-23] MEDS: Oxybutynin 5 MG Tablet 10 MG PO (08:35)
[2018-01-23] MEDS: Gabapentin 300 MG Capsule PO ×2 (08:35→17:05)
[2018-01-23] MEDS: Aspirin E.C. 325 MG Tablet PO ×2 (08:35→17:05)
[2018-01-23] MEDS: HYDROmorphone 2 MG TABLET PO ×2 (10:45→15:25)
[2018-01-23] MEDS: Azithromycin 250 MG Tablet PO (10:45)
[2018-01-23] MEDS: NYSTATIN 500,000 UNIT/5 ML UDC 500000 UNIT PO ×3 (10:46→20:25)
--- NOTE | 2018-01-23 12:24 | CASEMGMT ---
Social Work Resident main contact is resident daughter, Jenna (POA). Will continue to follow. Blanca BLACKMONW, HARDWOOD SAWYER
[2018-01-23 12:59] VITALS: PULSE 91; RESP 16
[2018-01-23] MEDS: Ipratropium/Albuterol Sulfate 3 ML AMPUL.NEB INHALATION ×2 (12:59→19:53)
--- NOTE | 2018-01-23 14:04 | NURSING ---
[place] PATCHES IN PLACE TO ARMANDO DELTOIDS.
[2018-01-23 16:00] VITALS: BP 114/70; PULSE 84; RESP 15; TEMP 36.6; O2SAT 97
[2018-01-23 19:53] VITALS: PULSE 98; RESP 20
--- NOTE | 2018-01-23 20:30 | NURSING ---
Butrans patches to bilateral deltoids.
[2018-01-24] MEDS: HYDROmorphone 2 MG TABLET PO ×4 (00:32→19:39)
[2018-01-24 06:24] VITALS: BP 125/70; PULSE 98
[2018-01-24] MEDS: Escitalopram Oxalate 20 MG Tablet PO (06:24)
[2018-01-24] MEDS: hydroCHLOROthiazide 25 MG Tablet PO (06:24)
[2018-01-24] MEDS: Metoprolol Tartrate 50 MG Tablet PO (06:24)
[2018-01-24] MEDS: NYSTATIN 500,000 UNIT/5 ML UDC 500000 UNIT PO ×4 (06:24→19:41)
[2018-01-24] MEDS: Venlafaxine XR 150 MG Capsule PO (06:24)
[2018-01-24] MEDS: Cefdinir 300 MG Capsule PO ×2 (06:24→16:52)
[2018-01-24] MEDS: Venlafaxine XR 75 MG Capsule PO (06:24)
[2018-01-24] MEDS: Nystatin Powder 15gm Bottle 1 APPLIC TOPICAL ×2 (06:30→19:40)
[2018-01-24] MEDS: Menthol/Lanolin/Calamine/Znox 113 GM Tube 1 APPLIC TOPICAL ×2 (06:30→19:40)
[2018-01-24 07:26] VITALS: PULSE 98; RESP 20; O2SAT 97
[2018-01-24] MEDS: Ipratropium/Albuterol Sulfate 3 ML AMPUL.NEB INHALATION (07:26)
[2018-01-24] MEDS: Oxybutynin 5 MG Tablet 10 MG PO (07:57)
[2018-01-24] MEDS: Iron Polysaccharide Complex 150 MG CAPSULE PO ×2 (07:57→16:53)
[2018-01-24] MEDS: Gabapentin 300 MG Capsule PO ×2 (07:57→16:52)
[2018-01-24] MEDS: Aspirin E.C. 325 MG Tablet PO ×2 (07:57→16:52)
[2018-01-24 10:54] LABS: Pathologist Review Reviewed
[2018-01-24] MEDS: Azithromycin 250 MG Tablet PO (11:13)
[2018-01-24 16:00] VITALS: BP 121/63; PULSE 95; RESP 20; TEMP 36.4; O2SAT 98
[2018-01-24] MEDS: Acetaminophen 500 MG Tablet 1000 MG PO (16:57)
[2018-01-24 19:04] VITALS: O2SAT 96
[2018-01-24 20:00] VITALS: PULSE 99; O2SAT 96
[2018-01-25] MEDS: Escitalopram Oxalate 20 MG Tablet PO (05:17)
[2018-01-25] MEDS: Venlafaxine XR 75 MG Capsule PO (05:17)
[2018-01-25] MEDS: Venlafaxine XR 150 MG Capsule PO (05:17)
[2018-01-25] MEDS: Menthol/Lanolin/Calamine/Znox 113 GM Tube 1 APPLIC TOPICAL ×2 (05:17→19:30)
[2018-01-25] MEDS: hydroCHLOROthiazide 25 MG Tablet PO (05:17)
[2018-01-25 05:18] VITALS: BP 124/66; PULSE 98
[2018-01-25] MEDS: Nystatin Powder 15gm Bottle 1 APPLIC TOPICAL ×2 (05:18→19:31)
[2018-01-25] MEDS: NYSTATIN 500,000 UNIT/5 ML UDC 500000 UNIT PO ×4 (05:18→19:31)
[2018-01-25] MEDS: Cefdinir 300 MG Capsule PO ×2 (05:18→17:13)
[2018-01-25] MEDS: Metoprolol Tartrate 50 MG Tablet PO (05:18)
[2018-01-25] MEDS: Iron Polysaccharide Complex 150 MG CAPSULE PO ×2 (08:08→17:13)
[2018-01-25] MEDS: Aspirin E.C. 325 MG Tablet PO ×2 (08:08→17:12)
[2018-01-25] MEDS: Gabapentin 300 MG Capsule PO ×2 (08:08→17:13)
[2018-01-25] MEDS: Azithromycin 250 MG Tablet PO (08:08)
[2018-01-25] MEDS: Oxybutynin 5 MG Tablet 10 MG PO (08:08)
[2018-01-25] MEDS: HYDROmorphone 2 MG TABLET PO ×2 (09:06→13:50)
--- NOTE | 2018-01-25 12:36 | NURSING ---
Butrans patches to bilateral shoulders intact.
[2018-01-25 15:46] VITALS: BP 123/69; PULSE 94; RESP 18; TEMP 36.4; O2SAT 96
[2018-01-26] MEDS: Menthol/Lanolin/Calamine/Znox 113 GM Tube 1 APPLIC TOPICAL ×2 (05:01→20:08)
[2018-01-26 05:02] VITALS: BP 119/68; PULSE 97
[2018-01-26] MEDS: Venlafaxine XR 150 MG Capsule PO (05:02)
[2018-01-26] MEDS: Metoprolol Tartrate 50 MG Tablet PO (05:02)
[2018-01-26] MEDS: Nystatin Powder 15gm Bottle 1 APPLIC TOPICAL ×2 (05:02→20:09)
[2018-01-26] MEDS: Venlafaxine XR 75 MG Capsule PO (05:02)
[2018-01-26] MEDS: Escitalopram Oxalate 20 MG Tablet PO (05:02)
[2018-01-26] MEDS: hydroCHLOROthiazide 25 MG Tablet PO (05:02)
[2018-01-26] MEDS: NYSTATIN 500,000 UNIT/5 ML UDC 500000 UNIT PO ×4 (05:03→20:08)
[2018-01-26] MEDS: Cefdinir 300 MG Capsule PO ×2 (05:03→17:18)
[2018-01-26] MEDS: HYDROmorphone 2 MG TABLET PO ×3 (06:57→17:25)
[2018-01-26] MEDS: Iron Polysaccharide Complex 150 MG CAPSULE PO ×2 (07:41→17:18)
[2018-01-26] MEDS: Oxybutynin 5 MG Tablet 10 MG PO (07:41)
[2018-01-26] MEDS: Aspirin E.C. 325 MG Tablet PO ×2 (07:41→17:18)
[2018-01-26] MEDS: Azithromycin 250 MG Tablet PO (07:41)
[2018-01-26] MEDS: Gabapentin 300 MG Capsule PO ×2 (07:41→17:18)
--- NOTE | 2018-01-26 07:44 | NURSING ---
butrans patches to bilat upper shoulder blades
[2018-01-26 10:06] VITALS: O2SAT 95
--- NOTE | 2018-01-26 14:00 | MDS.RN ---
Pain interview for EMELYN 01/27/18 completed.
[2018-01-26 15:45] VITALS: BP 116/61; PULSE 83; RESP 18; TEMP 36.3; O2SAT 97
--- NOTE | 2018-01-26 15:51 | CASEMGMT ---
Brief interview for mental status (BIMS) and resident mood interview (PHQ-9) completed on this day. BIMS score 15. PHQ-9 score 03/09
[2018-01-27 05:09] VITALS: BP 126/65; PULSE 92
[2018-01-27] MEDS: Escitalopram Oxalate 20 MG Tablet PO (05:09)
[2018-01-27] MEDS: Menthol/Lanolin/Calamine/Znox 113 GM Tube 1 APPLIC TOPICAL ×2 (05:09→19:57)
[2018-01-27] MEDS: Venlafaxine XR 75 MG Capsule PO (05:09)
[2018-01-27] MEDS: Metoprolol Tartrate 50 MG Tablet PO (05:09)
[2018-01-27] MEDS: NYSTATIN 500,000 UNIT/5 ML UDC 500000 UNIT PO ×4 (05:09→19:59)
[2018-01-27] MEDS: Nystatin Powder 15gm Bottle 1 APPLIC TOPICAL ×2 (05:09→19:57)
[2018-01-27] MEDS: Venlafaxine XR 150 MG Capsule PO (05:09)
[2018-01-27] MEDS: hydroCHLOROthiazide 25 MG Tablet PO (05:09)
[2018-01-27] MEDS: Aspirin E.C. 325 MG Tablet PO ×2 (08:02→17:25)
[2018-01-27] MEDS: Oxybutynin 5 MG Tablet 10 MG PO (08:02)
[2018-01-27] MEDS: Gabapentin 300 MG Capsule PO ×2 (08:02→17:25)
[2018-01-27] MEDS: Iron Polysaccharide Complex 150 MG CAPSULE PO ×2 (08:02→17:25)
[2018-01-27 08:20] VITALS: O2SAT 96
--- NOTE | 2018-01-27 11:03 | NURSING ---
Addendum entered by Mary Cedeño 01/27/18 12:23: Dr. Latham updated on results of CXR, encourage I.S., pt educated on I.S. and demonstrated to this nurse properly. Cont to monitor. Original Note: Dr. Latham updated that pt has fine crackles in bilateral lower lobes, pt states that her cough is productive, clear in color. N.O. for follow up CXR, pt updated.
--- NOTE | 2018-01-27 11:22 | RAD_ITS ---
STUDY: X-RAY CHEST REASON FOR EXAM: Female, 62 years old. Cough TECHNIQUE: 2 views of the chest were obtained COMPARISON: January 19, 2018 FINDINGS: No lung consolidation or pneumothorax. Small right-sided pleural effusion. Subsegmental atelectasis and/or infiltrates in the lung bases. Degenerative changes in the thoracic spine. Mild perihilar congestive changes. Cardiac size within normal limits RAD/Chest PA and Lateral IMPRESSION: Small right-sided pleural effusion with mild pulmonary vascular congestion and subsegmental atelectasis and/or infiltrates in the lung bases. Electronically Signed: Brian Benton, at 12:08 EDT Tel , Service support ,
[2018-01-27] MEDS: HYDROmorphone 2 MG TABLET PO (12:13)
[2018-01-27 16:00] VITALS: BP 107/55; PULSE 90; RESP 16; TEMP 36.4; O2SAT 98
--- NOTE | 2018-01-27 16:03 | NURSING ---
Butrans patches x2 intact to back.
[2018-01-27 22:21] VITALS: RESP 15
[2018-01-28 05:21] VITALS: BP 110/57; PULSE 92
[2018-01-28] MEDS: Venlafaxine XR 150 MG Capsule PO (05:21)
[2018-01-28] MEDS: Escitalopram Oxalate 20 MG Tablet PO (05:21)
[2018-01-28] MEDS: Venlafaxine XR 75 MG Capsule PO (05:21)
[2018-01-28] MEDS: hydroCHLOROthiazide 25 MG Tablet PO (05:21)
[2018-01-28] MEDS: Metoprolol Tartrate 50 MG Tablet PO (05:21)
[2018-01-28] MEDS: NYSTATIN 500,000 UNIT/5 ML UDC 500000 UNIT PO ×4 (05:21→20:22)
[2018-01-28] MEDS: Nystatin Powder 15gm Bottle 1 APPLIC TOPICAL ×2 (05:23→22:00)
[2018-01-28] MEDS: Menthol/Lanolin/Calamine/Znox 113 GM Tube 1 APPLIC TOPICAL ×2 (05:23→22:00)
[2018-01-28 08:00] VITALS: O2SAT 97
[2018-01-28 08:18] LABS: Absolute Lymphocyte Count 2.89 X10^3/ul (0.83-4.51); Absolute Neutrophil Count 7.9 X10^3/uL (2.0-7.7); Basophil# 0.05 X10^3/uL; Basophil% 0.4 % (0-1); Eosinophil# 0.59 X10^3/uL; Eosinophils% 4.7 % (0-5); Hematocrit 29.8 % (37-47); Lymphocyte # 2.89 X10^3/ul (4.0); Lymphocyte % 23.1 % (19-41); Mean Corp Hgb Conc 30.2 g/gl (32-36); Mean Corpuscular Hgb 29.7 pg (27.0-32.0); Mean Corpuscular Volume 98.3 fL (81-99); Mean Platelet Vol. 8.7 fl (6.2-12.0); Monocyte# 0.88 X10^3/uL; Neutrophil # 7.94 X10^3/uL (2.7-7.7); Neutrophil % 63.4 % (47-70); Platelet Count 522 K/mm3 (150-450); RBC Distribution Width CV 14.5 % (11.6-14.6); RBC Distribution Width SD 48.2 fl (35.1-43.9); Red Blood Count 3.03 M/mm3 (4.2-5.4); White Blood Count 12.5 K/mm3 (4.4-11.0)
[2018-01-28 08:24] LABS: POSITIVE COUNT NO; POSITIVE DIFFERENTIAL NO; POSITIVE MORPHOLOGY NO
[2018-01-28 08:41] LABS: Anion Gap 8 (5-15); BUN 9 mg/dL (7-18); BUN/Creat Ratio 16.9 RATIO (10-20); Chloride 100 mmol/L (98-107); Creatinine, Serum 0.53 mg/dL (0.55-1.02); EST Glomerular Filtration Rate 123 mL/min (>60); Est Glom Filt Rate - Afr Amer 149 mL/min (>60); Estimated Creatinine Clearance 100.39 ml/min; Glucose 104 mg/dL (74-106); Potassium 3.6 mmol/L (3.5-5.1); Sodium Level 140 mmol/L (136-145)
[2018-01-28] MEDS: Gabapentin 300 MG Capsule PO ×2 (08:49→16:35)
[2018-01-28] MEDS: Aspirin E.C. 325 MG Tablet PO ×2 (08:49→16:35)
[2018-01-28] MEDS: Iron Polysaccharide Complex 150 MG CAPSULE PO ×2 (08:49→16:35)
[2018-01-28] MEDS: Oxybutynin 5 MG Tablet 10 MG PO (08:49)
[2018-01-28] MEDS: Tuberculin,Purif.prot.deriv. 50 TU/ML Vial 5 ML ID (10:53)
[2018-01-28 16:00] VITALS: BP 144/50; PULSE 62; RESP 16; TEMP 36.6; O2SAT 96
[2018-01-28] MEDS: HYDROmorphone 2 MG TABLET PO ×2 (16:38→20:54)
[2018-01-28 16:45] VITALS: BP 144/50; PULSE 98; RESP 16; TEMP 36.6; O2SAT 99
--- NOTE | 2018-01-28 16:58 | NURSING ---
Butrans patches x2 intact to back.
[2018-01-28 22:00] VITALS: RESP 15
[2018-01-29] MEDS: HYDROmorphone 2 MG TABLET PO ×3 (01:24→15:26)
[2018-01-29 05:24] VITALS: BP 117/64; PULSE 90
[2018-01-29] MEDS: Escitalopram Oxalate 20 MG Tablet PO (05:24)
[2018-01-29] MEDS: Venlafaxine XR 75 MG Capsule PO (05:24)
[2018-01-29] MEDS: Venlafaxine XR 150 MG Capsule PO (05:24)
[2018-01-29] MEDS: Metoprolol Tartrate 50 MG Tablet PO (05:24)
[2018-01-29] MEDS: hydroCHLOROthiazide 25 MG Tablet PO (05:24)
[2018-01-29] MEDS: Menthol/Lanolin/Calamine/Znox 113 GM Tube 1 APPLIC TOPICAL (05:25)
[2018-01-29] MEDS: NYSTATIN 500,000 UNIT/5 ML UDC 500000 UNIT PO ×3 (05:25→17:47)
[2018-01-29] MEDS: Nystatin Powder 15gm Bottle 1 APPLIC TOPICAL (05:26)
[2018-01-29 06:58] VITALS: O2SAT 92
[2018-01-29] MEDS: Oxybutynin 5 MG Tablet 10 MG PO (07:50)
[2018-01-29] MEDS: Aspirin E.C. 325 MG Tablet PO ×2 (07:51→17:47)
[2018-01-29] MEDS: Gabapentin 300 MG Capsule PO ×2 (07:51→17:47)
[2018-01-29] MEDS: Iron Polysaccharide Complex 150 MG CAPSULE PO ×2 (07:51→17:47)
[2018-01-29 07:53] VITALS: RESP 18; O2SAT 99
--- NOTE | 2018-01-29 07:53 | NURSING ---
0500: right knee drsg changed this am. cleansed right knee incision with normal saline, patted dry and new ABD applied. pt mingo well. small amount of serosang drng noted at proximal portion of incision
--- NOTE | 2018-01-29 07:54 | NURSING ---
sat 99% on room air spot check, will leave oxygen off. butrans patches intact to upper shoulder blades on back
--- NOTE | 2018-01-29 12:28 | PCM.DC ---
- Discharge Diagnoses Current Active Problems: Current Active and Chronic Problems (Last Updated 12/25/17 @ 16:12 by Mario Chatterjee) Osteoarthritis of knees, bilateral (Chronic) Hypokalemia (Chronic) Community acquired pneumonia (Acute) Morbid obesity (Chronic) You will use the following diet at home:: No restrictions, Regular Your food should be the consistency of: Regular Your liquids should be the consistency of: Regular/Thin Discharge Activity: Return to Normal Activity, May Shower, Use Walker Weight Bearing Status: Weight bearing as tolerated Call your doctor if you observe: Fever of 101 or Higher, Inability to urinate, Inability to have a bowel movement, Shortness of breath, Chest pain, Uncontrolled pain Allergies/Adverse Reactions: Allergies No Known Allergies Allergy (Verified 01/09/18 10:23) Medications to take at Discharge Hydrochlorothiazide [Hctz] 25 mg PO DAILY 09/28/17 Venlafaxine XR [Effexor Xr] 75 mg PO DAILY 09/28/17 Venlafaxine XR [Effexor Xr] 150 mg PO DAILY 09/28/17 Oxybutynin [Ditropan] 10 mg PO DAILY 01/19/18 Buprenorphine [Butrans 5 Mcg/Hr] 2 each TD QWEEK 01/20/18 Gabapentin [Neurontin] 300 mg PO BID 01/20/18 HYDROmorphone tablet [Dilaudid] 2 mg PO Q4H PRN PRN #40 tab 01/20/18 Iron Aspgly,Ps/C/B12/FA/Ca/Suc [Ferrex 150 Forte Plus Capsule] 1 each PO BID 01/20/18 Metoprolol Tartrate 50 mg PO DAILY 01/20/18 Acetaminophen [Tylenol] 1,000 mg PO Q8H PRN PRN tablet 01/29/18 Albuterol Inhaler [Ventolin Hfa] 2 puff INHALATION Q6H PRN PRN #1 inhaler 01/29/18 Aspirin E.C. [Ecotrin] 325 mg PO BID #34 tab 01/29/18 Escitalopram Oxalate [Lexapro] 20 mg PO DAILY #30 tab 01/29/18 HYDROmorphone tablet [Dilaudid] 2 mg PO Q4H PRN PRN #30 tablet 01/29/18 Nystatin Powder [Mycostatin Powder] 1 applic TOPICAL 0600,2200 #1 bottle 01/29/18 Polyethylene Glycol 3350 [Miralax] 17 gm PO DAILY #30 packet 01/29/18 The following prescriptions were given: HYDROmorphone tablet [Dilaudid] 2 mg PO Q4H PRN PRN #30 tablet PRN Reason: Severe Pain (-08/22) Albuterol Inhaler [Ventolin Hfa] 2 puff INHALATION Q6H PRN PRN #1 inhaler PRN Reason: SOB &/OR WHEEZING Escitalopram Oxalate [Lexapro] 20 mg PO DAILY #30 tab Nystatin Powder [Mycostatin Powder] 1 applic TOPICAL 0600,2200 #1 bottle Polyethylene Glycol 3350 [Miralax] 17 gm PO DAILY #30 packet Aspirin E.C. [Ecotrin] 325 mg PO BID #34 tab Primary Care Physician: [facility] Doctor,Out of [Primary Care Provider] - Please follow up with your Primary Care Physician in: 1 week. Please Follow Up With: Dr Torres When: 2 weeks. Please Follow Up With: Dr. Franklin When: 2 weeks Proposed Discharge Date: 01/29/18
--- NOTE | 2018-01-29 12:30 | PCM.DC.SUM ---
Discharge Date and Diagnosis - Problem List Patient Problems: Active and Suspected Problems (Last Updated 12/25/17 @ 16:12 by Mario Chatterjee) Community acquired pneumonia (Acute) Date of Admission: 01/20/18 Date of Discharge: 01/29/18 - Primary Discharge Diagnosis Active and Suspected Problems (Last Updated 12/25/17 @ 16:12 by Mario Chatterjee) Community acquired pneumonia (Acute) - Secondary Discharge Diagnosis Chronic Problems (Last Updated 12/25/17 @ 16:12 by Mario Chatterjee) Osteoarthritis of knees, bilateral (Chronic) Hypokalemia (Chronic) Morbid obesity (Chronic) Osteoarthritis (Chronic) Depression (Chronic) Hypertension (Chronic) Hospital Course and Treatment Imaging Results: 01/20/18 16:53 Diet: Regular Diet Is pt able to select menu?: Yes Clinical Impression(s) from Imaging Studies KUB X-Ray 01/20/18 14:05 IMPRESSION: Nonspecific gas pattern. Hepatomegaly. Electronically Signed: Rikki Correia MD at 15:11 EST Tel , Service support , Chest X-Ray 01/27/18 11:22 IMPRESSION: Small right-sided pleural effusion with mild pulmonary vascular congestion and subsegmental atelectasis and/or infiltrates in the lung bases. Electronically Signed: Brian Benton, at 12:08 EDT Tel , Service support , Labs (Last 48 Hours) 01/28/18 01/28/18 07:53 07:53 WBC 12.5 H RBC 3.03 L Hgb 9.0 L Hct 29.8 L MCV 98.3 MCH 29.7 MCHC 30.2 L RDW 14.5 RDW Differential 48.2 H Plt Count 522 H MPV 8.7 Immature Gran % (Auto) 1.400 H Neut % (Auto) 63.4 Lymph % (Auto) 23.1 Calvert % (Auto) 7.0 Eos % (Auto) 4.7 Baso % (Auto) 0.4 Absolute Neuts (auto) 7.9 H Absolute Lymphs (auto) 2.89 Total Counted Not Reportable Sodium 140 Potassium 3.6 Chloride 100 Carbon Dioxide 32.0 Anion Gap 8 BUN 9 Creatinine 0.53 L Estim Creat Clear Calc 100.39 Est GFR (MDRD) Af Amer 149 Est GFR (MDRD) Non-Af 123 BUN/Creatinine Ratio 16.9 Glucose 104 Calcium 9.0 Operations: None Procedures: None Summary of Care Provided: The patient is a 62 year old Female with below past medical history hospitalized for bilateral total knee replacement with Dr. Torres 01/16/2018, complicated by right basilar community acquired pneumonia, tachycardia, admitted to TCU with debility, for rehabilitation, strengthening, prior to discharge home with spouse. [] Discharge home with spouse, and Home health services. Home health ordered. Discharge Diet: No Restrictions Discharge Activity: Return to Normal Activity, May Shower, Use Walker Weight Bearing Status: Weight bearing as tolerated Call your doctor if you observe: Fever of 101 or Higher, Inability to urinate, Inability to have a bowel movement, Shortness of breath, Chest pain, Uncontrolled pain Home Medications: Medications to take at Discharge Hydrochlorothiazide [Hctz] 25 mg PO DAILY 09/28/17 Venlafaxine XR [Effexor Xr] 75 mg PO DAILY 09/28/17 Venlafaxine XR [Effexor Xr] 150 mg PO DAILY 09/28/17 Oxybutynin [Ditropan] 10 mg PO DAILY 01/19/18 Buprenorphine [Butrans 5 Mcg/Hr] 2 each TD QWEEK 01/20/18 Gabapentin [Neurontin] 300 mg PO BID 01/20/18 HYDROmorphone tablet [Dilaudid] 2 mg PO Q4H PRN PRN #40 tab 01/20/18 Iron Aspgly,Ps/C/B12/FA/Ca/Suc [Ferrex 150 Forte Plus Capsule] 1 each PO BID 01/20/18 Metoprolol Tartrate 50 mg PO DAILY 01/20/18 Acetaminophen [Tylenol] 1,000 mg PO Q8H PRN PRN tablet 01/29/18 Albuterol Inhaler [Ventolin Hfa] 2 puff INHALATION Q6H PRN PRN #1 inhaler 01/29/18 Aspirin E.C. [Ecotrin] 325 mg PO BID #34 tab 01/29/18 Escitalopram Oxalate [Lexapro] 20 mg PO DAILY #30 tab 01/29/18 HYDROmorphone tablet [Dilaudid] 2 mg PO Q4H PRN PRN #30 tablet 01/29/18 Nystatin Powder [Mycostatin Powder] 1 applic TOPICAL 0600,2200 #1 bottle 01/29/18 Polyethylene Glycol 3350 [Miralax] 17 gm PO DAILY #30 packet 01/29/18 Following Prescrptions Were Given to Patient: HYDROmorphone tablet [Dilaudid] 2 mg PO Q4H PRN PRN #30 tablet PRN Reason: Severe Pain (-08/22) Albuterol Inhaler [Ventolin Hfa] 2 puff INHALATION Q6H PRN PRN #1 inhaler PRN Reason: SOB &/OR WHEEZING Escitalopram Oxalate [Lexapro] 20 mg PO DAILY #30 tab Nystatin Powder [Mycostatin Powder] 1 applic TOPICAL 0600,2200 #1 bottle Polyethylene Glycol 3350 [Miralax] 17 gm PO DAILY #30 packet Aspirin E.C. [Ecotrin] 325 mg PO BID #34 tab Primary Care Physician: [facility] Doctor,Out of [Primary Care Provider] - Please follow up with your Primary Care Physician in: 1 week. Please Follow Up With: Dr Torres When: 2 weeks. Please Follow Up With: Dr. Franklin When: 2 weeks Disposition: Home with Home Health Minutes spent on discharge:: 35 Patient Condition:: Stable Medical Necessity - Tobacco Use Smoking Status: Former smoker Tobacco Use: Non-smoker Meaningful Use Info Meaningful Use Diagnoses (Choose all that apply): None applicable
--- NOTE | 2018-01-29 12:33 | HHNOTE_ITS ---
Home Health Note - Plan Overview of reason of hospitalization: The patient is a 62 year old Female with below past medical history hospitalized for bilateral total knee replacement with Dr. Torres 01/16/2018, complicated by right basilar community acquired pneumonia, tachycardia, admitted to TCU with debility, for rehabilitation, strengthening, prior to discharge home with spouse. [] Discharge home with spouse, and Home health services. Home health ordered. Problems: Patient was seen for (Last Updated 12/25/17 @ 16:12 by Mario Chattejree) Osteoarthritis of knees, bilateral (Chronic) Hypokalemia (Chronic) Community acquired pneumonia (Acute) Morbid obesity (Chronic) Complete List of Medical Problems (Last Updated 12/25/17 @ 16:12 by Mario Chatterjee) Osteoarthritis of knees, bilateral (Chronic) Hypokalemia (Chronic) Community acquired pneumonia (Acute) Morbid obesity (Chronic) Tachycardia (Acute) Pneumonia, pneumococcal (Acute) Osteoarthritis (Chronic) Status post bilateral knee replacements (Acute) Depression (Chronic) Hypertension (Chronic) - Requirements and Reasons Disciplines Needed/Ordered: Long-Term, Physical Therapy Reason for Disciplines: Wound Care, Gait Training, Stair Training, Fall Prevention, Home Safety/Equipment Instruction, Balance and/or Posture Training, Transfer Training Related To: Limited/Poor Endurance, Shortness of Breath with Activity, Physical Impairments, Unsteady Gait/Balance, Fall Risk Patient is unable to leave the home: Without Aid of Supportive Devices (crutches , cane, wheelchair, walker), Without the assistance of another person
--- NOTE | 2018-01-29 12:33 | DS.PCM_ITS ---
Discharge Date and Diagnosis - Problem List Patient Problems: Active and Suspected Problems (Last Updated 12/25/17 @ 16:12 by Mario Chatterjee) Community acquired pneumonia (Acute) Date of Admission: 01/20/18 Date of Discharge: 01/29/18 - Primary Discharge Diagnosis Active and Suspected Problems (Last Updated 12/25/17 @ 16:12 by Mario Chatterjee) Community acquired pneumonia (Acute) - Secondary Discharge Diagnosis Chronic Problems (Last Updated 12/25/17 @ 16:12 by Mario Chatterjee) Osteoarthritis of knees, bilateral (Chronic) Hypokalemia (Chronic) Morbid obesity (Chronic) Osteoarthritis (Chronic) Depression (Chronic) Hypertension (Chronic) Hospital Course and Treatment Imaging Results: 01/20/18 16:53 Diet: Regular Diet Is pt able to select menu?: Yes Clinical Impression(s) from Imaging Studies KUB X-Ray 01/20/18 14:05 IMPRESSION: Nonspecific gas pattern. Hepatomegaly. Electronically Signed: Rikki Correia MD at 15:11 EST Tel , Service support , Chest X-Ray 01/27/18 11:22 IMPRESSION: Small right-sided pleural effusion with mild pulmonary vascular congestion and subsegmental atelectasis and/or infiltrates in the lung bases. Electronically Signed: Brian Benton, at 12:08 EDT Tel , Service support , Labs (Last 48 Hours) 01/28/18 01/28/18 07:53 07:53 WBC 12.5 H RBC 3.03 L Hgb 9.0 L Hct 29.8 L MCV 98.3 MCH 29.7 MCHC 30.2 L RDW 14.5 RDW Differential 48.2 H Plt Count 522 H MPV 8.7 Immature Gran % (Auto) 1.400 H Neut % (Auto) 63.4 Lymph % (Auto) 23.1 Meade % (Auto) 7.0 Eos % (Auto) 4.7 Baso % (Auto) 0.4 Absolute Neuts (auto) 7.9 H Absolute Lymphs (auto) 2.89 Total Counted Not Reportable Sodium 140 Potassium 3.6 Chloride 100 Carbon Dioxide 32.0 Anion Gap 8 BUN 9 Creatinine 0.53 L Estim Creat Clear Calc 100.39 Est GFR (MDRD) Af Amer 149 Est GFR (MDRD) Non-Af 123 BUN/Creatinine Ratio 16.9 Glucose 104 Calcium 9.0 Operations: None Procedures: None Summary of Care Provided: The patient is a 62 year old Female with below past medical history hospitalized for bilateral total knee replacement with Dr. Torres 01/16/2018, complicated by right basilar community acquired pneumonia, tachycardia, admitted to TCU with debility, for rehabilitation, strengthening, prior to discharge home with spouse. [] Discharge home with spouse, and Home health services. Home health ordered. Discharge Diet: No Restrictions Discharge Activity: Return to Normal Activity, May Shower, Use Walker Weight Bearing Status: Weight bearing as tolerated Call your doctor if you observe: Fever of 101 or Higher, Inability to urinate, Inability to have a bowel movement, Shortness of breath, Chest pain, Uncontrolled pain Home Medications: Medications to take at Discharge Hydrochlorothiazide [Hctz] 25 mg PO DAILY 09/28/17 Venlafaxine XR [Effexor Xr] 75 mg PO DAILY 09/28/17 Venlafaxine XR [Effexor Xr] 150 mg PO DAILY 09/28/17 Oxybutynin [Ditropan] 10 mg PO DAILY 01/19/18 Buprenorphine [Butrans 5 Mcg/Hr] 2 each TD QWEEK 01/20/18 Gabapentin [Neurontin] 300 mg PO BID 01/20/18 HYDROmorphone tablet [Dilaudid] 2 mg PO Q4H PRN PRN #40 tab 01/20/18 Iron Aspgly,Ps/C/B12/FA/Ca/Suc [Ferrex 150 Forte Plus Capsule] 1 each PO BID 08/30 Metoprolol Tartrate 50 mg PO DAILY 01/20/18 Acetaminophen [Tylenol] 1,000 mg PO Q8H PRN PRN tablet 01/29/18 Albuterol Inhaler [Ventolin Hfa] 2 puff INHALATION Q6H PRN PRN #1 inhaler Aspirin E.C. [Ecotrin] 325 mg PO BID #34 tab 01/29/18 Escitalopram Oxalate [Lexapro] 20 mg PO DAILY #30 tab 01/29/18 HYDROmorphone tablet [Dilaudid] 2 mg PO Q4H PRN PRN #30 tablet 01/29/18 Nystatin Powder [Mycostatin Powder] 1 applic TOPICAL 0600,2200 #1 bottle Polyethylene Glycol 3350 [Miralax] 17 gm PO DAILY #30 packet 01/29/18 Following Prescrptions Were Given to Patient: HYDROmorphone tablet [Dilaudid] 2 mg PO Q4H PRN PRN #30 tablet PRN Reason: Severe Pain (-08/22) Albuterol Inhaler [Ventolin Hfa] 2 puff INHALATION Q6H PRN PRN #1 inhaler PRN Reason: SOB &/OR WHEEZING Escitalopram Oxalate [Lexapro] 20 mg PO DAILY #30 tab Nystatin Powder [Mycostatin Powder] 1 applic TOPICAL 0600,2200 #1 bottle Polyethylene Glycol 3350 [Miralax] 17 gm PO DAILY #30 packet Aspirin E.C. [Ecotrin] 325 mg PO BID #34 tab Primary Care Physician: [facility] Doctor,Out of [Primary Care Provider] - Please follow up with your Primary Care Physician in: 1 week. Please Follow Up With: Dr Torres When: 2 weeks. Please Follow Up With: Dr. Franklin When: 2 weeks Disposition: Home with Home Health Minutes spent on discharge:: 35 Patient Condition:: Stable Medical Necessity - Tobacco Use Smoking Status: Former smoker Tobacco Use: Non-smoker Meaningful Use Info Meaningful Use Diagnoses (Choose all that apply): None applicable
--- NOTE | 2018-01-29 14:57 | CASEMGMT ---
Social Work Spoke with resident in room. Resident is requesting for discharge date to be set for 01/29/18. This child welfare social worker encouraging resident to continue with stay for another day to facilitate a safe discharge home. Resident declining to continue with stay past today, 01/29/18. Spoke with staff/therapy, all are agreeable to proposed discharge date. This child welfare social worker communicating that physical therapy and jail are recommending for resident to continue with services within the home. Resident is agreeable to recommendation and requesting for home health services to be set up through [facility] ([facility]). Resident reporting to have all needed durable medical equipment already set up within the home. Resident declining for this child welfare social worker to contact resident family about discharge. Resident planning to contact resident family to set up transportation home for today. Resident identifying no further needs at this time. Support given. [facility] This child welfare social worker making referral for physical therapy and jail. Order to be completed. Proposed discharge date: 01/29/18 PLAN: Discharge home with spouse and home health services. Blanca ZHOU, NEUROPHYSIOLOGIST
[2018-01-29 16:00] VITALS: BP 116/64; PULSE 83; RESP 18; TEMP 36.4; O2SAT 99
--- NOTE | 2018-02-02 14:36 | MDS.RN ---
Information for the mds was obtained from review of the clinical record, interview of resident, staff, and direct observation of resident's care.
== END 2018-01-29 18:29 | disposition home health service (06) | DRG 559 ==
PROVIDERS: Admitting Provider Family Medicine Geriatric Medicine; Visit Provider Family Medicine Geriatric Medicine
DX: Z47.1 Aftercare following joint replacement surgery (principal); J18.9 Pneumonia, unspecified organism; Z68.41 Body mass index [BMI] 40.0-44.9, adult; E66.01 Morbid (severe) obesity due to excess calories; Z96.653 Presence of artificial knee joint, bilateral; E87.6 Hypokalemia; F32.9 Major depressive disorder, single episode, unspecified; I10 Essential (primary) hypertension; F41.9 Anxiety disorder, unspecified; D50.9 Iron deficiency anemia, unspecified; B35.4 Tinea corporis; N32.81 Overactive bladder; Z71.3 Dietary counseling and surveillance; Z79.899 Other long term (current) drug therapy; Z79.82 Long term (current) use of aspirin; Z87.891 Personal history of nicotine dependence
CPT/HCPCS: 36415; 71046; 74018; 80048; 85025; 94640; 97110; 97116; 97162; 97166; 97530; 97535; 97802

== ENCOUNTER → 2018-03-19 14:00 | Outpatient (CLI) | payer MEDICARE, MEDICAID, SELFPAY ==
--- NOTE | 2018-03-19 13:42 | RAD_ITS ---
STUDY: X-RAY - LEFT KNEE REASON FOR EXAM: Postop for 2 months. TECHNIQUE: 4 view(s) of the knee. COMPARISON: Radiographs 01/16/2018. FINDINGS: There is a total knee arthroplasty without evidence of complication. There is a joint effusion. RAD/Knee 4 or More Views IMPRESSION: Joint effusion. No demonstrated abnormality of left total knee arthroplasty. Electronically Signed: Jerad Linares MD at 14:13 EDT Tel , Service support ,
--- NOTE | 2018-03-19 13:42 | RAD_ITS ---
STUDY: X-RAY - RIGHT KNEE REASON FOR EXAM: Postop for 2 months. TECHNIQUE: 4 view(s) of the knee. COMPARISON: Radiographs 01/16/2018. FINDINGS: There is a right total knee arthroplasty without evidence of complication. There is a joint effusion. RAD/Knee 4 or More Views IMPRESSION: Joint effusion. No abnormality of right total knee arthroplasty. Electronically Signed: Jerad Linares MD at 15:02 EDT Tel , Service support ,
== END ==
PROVIDERS: Visit Provider Orthopaedic Surgery
DX: M17.0 Bilateral primary osteoarthritis of knee (principal); Z96.653 Presence of artificial knee joint, bilateral
CPT/HCPCS: 73564

== ENCOUNTER 2018-04-02 15:00 | Outpatient (RCR) | payer MEDICARE, MEDICAID, SELFPAY ==
--- NOTE | 2018-03-15 11:32 | HP.PTEVAL_ITS ---
Patient's Visit Information EMANUEL REED is a 62 year old F referred to Physical Therapy by Out of Town Doctor with a diagnosis of ARMANDO KNEE OA. Date of Evaluation: 03/15/18 Physical Therapist: Marlene Wagoner - Visit Plan Frequency: 2-3x /Week Duration: 4-6 Weeks Plan: AQUATIC THERAPY FOR POSTURE CORRECTION/STRENGTHENING, INSTRUCTION IN APPROPRIATE BODY MECHANICS AND ACTIVITY MODIFICATIONS. DLS STARTING WITH A NEUTRAL SPINE PROGRESSING ROM TOLERATED. ARMANDO LE ROM, STRETCHING AND STRENGTHENING. HEP INSTRUCTION. *NOTE: PATIENT HAS DONE WATER THERAPY AT ANOTHER FACILITY IN THE PAST AND LIKED IT OK BUT DOES NOT LIKE TO BE IN THE POOL WITH OTHER PEOPLE. - Subjective Subjective: Diagnosis: ARMANDO PRIMARY OA OF KNEES. S/P ARMANDO TKR'S 01/15/18. Work/ Leisure: UNEMPLOYEED. Disability: YES. Present symptoms: ARMANDO KNEE PAIN, LOW BACK PAIN (WORSE SINCE SURGERY). Present since: CHRONIC. Pain Scale: WORST 8/10 LEAST 1/10. Currently: /10. Commenced as a result of: ARTHRITIS. Symptoms at onset: SAME. Worse: STANDING, WALKING, BENDING KNEES. Better: SITTING AND LYING. Disturbed sleep: YES. Previous history/ Previous treatment: INJECTIONS, WATER THERAPY. Gait: NO USING ANY ASSISTIVE DEVICES. NO FALLS. Accidents: NO. Unexplained weight loss: NO. Imaging: NONE SINCE SURGERY. PMH/Recent major surgery: HTN, SPIINAL STENOSIS, PLANTAR FASCITIS, DEPRESSION - Objective Sitting Posture: POOR. Standing Posture: POOR. Other Observations: INDEP ANTALGIC GAIT INTO PT WITHOUT ANY ASSISTIVE DEVICES. LIMPING ON LEFT LE. Motor deficit: RIGHT LE: HIP FLEX 4-/5, KNEE EXT 3+/5, KNEE FLEX 4-/5, ANKLE DORSI FLEX 5/5. LEFT LE: HIP FLEX 4-/5, KNEE EXT 3-/5, KNEE FLEX 4-/5, ANKLE DORSI 5/5. Sensory deficit: DECREASED LIGHT TOUCH ARMANDO LOWER LEGS BUT GOOD SENSATION AT KNEES AND EVEN AROUND INCISIONS. ROM deficit: IN SUPINE WITH HEEL SLIDE: RIGHT KNEE - FULL EXT TO 95 DEG FLEX, LEFT KNEE FULL EXTENSION (BUT DIFFICULT) TO 82 DEG FLEX. LEFT KNEE IS MUCH MORE TIGHT AND PAINFUL THAN RIGHT. Lumbar mvmt loss: flex - MOD. ext - CRISTI. R SG - CRISTI. L SG - CRISTI. INCREASED C/O LOW BACK PAIN WITH LUMBAR ROM TESTING ALL PLANES. Core strength: POOR. Palpation: BOTH KNEE INSCISION ARE WELL HEALED WITHOUT ANY SIGNS OF INFECTION. MILD ARMANDO KNEE EDEMA LEFT > RIGHT. - Goals Goal 1:: INDEP AND SAFE GAIT ON ALL SURFACES WITH LEAST ASSISTIVE DEVICE Goal Time Frame: 4-6 Weeks Goal 2:: DECREASE C/O ARMANDO KNEE PAIN Goal Time Frame: 4-6 Weeks Goal 3:: IMPROVE FUNCTIONAL ROM ARMANDO LE'S Goal Time Frame: 4-6 Weeks Goal 4:: IMPROVE FUNCTIONAL STRENGTH ARMANDO LE'S Goal Time Frame: 4-6 Weeks Goal 5:: INDEP HEP Goal Time Frame: 4-6 Weeks - Rehabilitation Potential Rehabilitation Potential: Fair - Anticipated Interventions Patient/Client Instruction: Educate patient on: Condition, Plan of Care, Risk Factors, Benefits of Fitness Program For the Purpose of:: To improve self management Therapeutic Exercise to Include: Strength training, Body mechanics, Postural training, Flexibilty training, Gait and locomotor training, In an aquatic setting, Passive ROM, Active ROM, Dynamic Lumbar Stabilization For the Purpose of:: To decrease pain, To increase ROM, To improve muscle performance and motor function, To increase tolerance to activity/condition/ position, To improve performance and independence with ADL's, To improve ability of physical actions for home/community/work/leisure, To improve gait and locomotor functions Cryotherapy (ice pack, ice massage): Yes Thermo therapy (hot pack): Yes Ultrasound (thermal/non thermal): Yes For the Purpose of:: To decrease pain, To decrease swelling/inflammation, To increase ROM Thank you for the opportunity to evaluate your patient. For Medicare and Medicare HMO plans, please review the plan of care and approve it. It will need to be FAXED BACK to us at [phone] for Medicare purposes. Please let me know if there are questions or concerns regarding this plan of care. Physician Signature: Date:
--- NOTE | 2018-04-02 17:32 | HP.PTREVAL_ITS ---
Out of Town Doctor, It has been my pleasure to treat EMANUEL REED over the last 6 visits for ARMANDO KNEE OA. Please see the progress note below for an update on the physical therapy plan of care! Subjective: PATIENT REPORTS SHE IS NO BETTER AND NO WORSE. DOES NOT WANT TO DO ANY MORE POOL EXERCISE. PATIENT REPORTS HER BACK ISN'T ANY BETTER EITHER. PATIENT REPORTS SHE COMES HERE ABOUT ONCE A WEEK WITH HER IN ADDITION TO PT APPOINTMENTS TO RIDE THE BIKE. Objective/Function: INDEP ANTALGIC GAIT INTO PT WITH a straight cane. LIMPING ON LEFT LE. Motor deficit: RIGHT LE: HIP FLEX 4-/5, KNEE EXT 3+/5, KNEE FLEX 4-/5, ANKLE DORSI FLEX 5/5. LEFT LE: HIP FLEX 4-/5, KNEE EXT 3-/5, KNEE FLEX 4- /5, ANKLE DORSI 5/5. Sensory deficit: DECREASED LIGHT TOUCH ARMANDO LOWER LEGS BUT GOOD SENSATION AT KNEES AND EVEN AROUND INCISIONS. ROM deficit: IN SUPINE WITH HEEL SLIDE: RIGHT KNEE - FULL EXT TO 95 DEG FLEX, LEFT KNEE -8 DEG EXTENSION TO 108 DEG FLEX. LEFT KNEE IS STILL MORE TIGHT AND PAINFUL THAN RIGHT. Lumbar mvmt loss: flex - MOD. ext - CRISTI. R SG - CRISTI. L SG - CRISTI. INCREASED C/O LOW BACK PAIN WITH LUMBAR ROM TESTING ALL PLANES. Core strength: POOR. Palpation: BOTH KNEE INSCISION ARE WELL HEALED WITHOUT ANY SIGNS OF INFECTION. MILD ARMANDO KNEE EDEMA LEFT > RIGHT. Plan Plan: PATIENT COMES TO [facility] BETWEEN APPOINTMENTS ABOUT ONCE A WEEK WITH HER AND NEEDS GUIDANCE ON ROUTINE. TRANSITION TO [place] BASED PT FOR ARMANDO LE ROM, STRETCHING AND STRENGTHENING POST TKR REHAB TAKING LBP INTO CONSIDERATION. Goals Goal 1:: INDEP AND SAFE GAIT ON ALL SURFACES WITH LEAST ASSISTIVE DEVICE Goal Time Frame: 4-6 Weeks Goal Progress: Not Progressing Goal 2:: DECREASE C/O ARMANDO KNEE PAIN Goal Time Frame: 4-6 Weeks Goal Progress: Not Progressing Goal 3:: IMPROVE FUNCTIONAL ROM ARMANDO LE'S Goal Time Frame: 4-6 Weeks Goal Progress: Not Progressing Goal 4:: IMPROVE FUNCTIONAL STRENGTH ARMANDO LE'S Goal Time Frame: 4-6 Weeks Goal Progress: Not Progressing Goal 5:: INDEP HEP Goal Time Frame: 4-6 Weeks Goal Progress: Not Progressing Anticipated Interventions Patient/Client Instruction: Educate patient on: Condition, Plan of Care, Risk Factors, Benefits of Fitness Program For the Purpose of:: To improve self management Therapeutic Exercise to Include: Strength training, Body mechanics, Postural training, Flexibilty training, Gait and locomotor training, In an aquatic setting, Passive ROM, Active ROM, Dynamic Lumbar Stabilization For the Purpose of:: To decrease pain, To increase ROM, To improve muscle performance and motor function, To increase tolerance to activity/condition/ position, To improve performance and independence with ADL's, To improve ability of physical actions for home/community/work/leisure, To improve gait and locomotor functions Cryotherapy (ice pack, ice massage): Yes Thermo therapy (hot pack): Yes Ultrasound (thermal/non thermal): Yes For the Purpose of:: To decrease pain, To decrease swelling/inflammation, To increase ROM Please do not hesitate to contact me at [phone] by phone or Fax: if you have questions or concerns regarding this new plan of care! Sincerely, Marlene Wagoner
--- NOTE | 2018-08-30 12:30 | HP.PT.NRP ---
HP - Discharge Summary (1) - Patient Information EMANUEL REED was seen in my office for initial evaluation on 03/15/18. The following Plan of Care was established for this patient: Initial Frequency: 2-3x /Week Initial Duration: 4-6 Weeks - Anticipated Interventions Patient/Client Instruction: Educate patient on: Condition, Plan of Care, Risk Factors, Benefits of Fitness Program For the Purpose of:: To improve self management Therapeutic Exercise to Include: Strength training, Body mechanics, Postural training, Flexibilty training, Gait and locomotor training, In an aquatic setting, Passive ROM, Active ROM, Dynamic Lumbar Stabilization For the Purpose of:: To decrease pain, To increase ROM, To improve muscle performance and motor function, To increase tolerance to activity/condition/position, To improve performance and independence with ADL's, To improve ability of physical actions for home/community/work/leisure, To improve gait and locomotor functions Cryotherapy (ice pack, ice massage): Yes Thermo therapy (hot pack): Yes Ultrasound (thermal/non thermal): Yes For the Purpose of:: To decrease pain, To decrease swelling/inflammation, To increase ROM This patient was last seen in our office . Pertinent comments regarding their Physical therapy will appear below: This patient has not returned to Physical Therapy and is appropriate to return to MD for further follow-up as needed. At this point I will be discontinuing this patient from physical therapy. I would be happy to see this patient again in the future if found appropriate by the physician. Thank you! Marlene Wagoner
== END 2018-04-02 19:00 | disposition home or self-care (01) ==
LOC: PT 15:00
DX: M17.0 Bilateral primary osteoarthritis of knee (principal)
CPT/HCPCS: 97113; 97162; 97530

== ENCOUNTER 2018-05-08 06:34 | Day surgery (SDC) | payer MEDICARE, MEDICAID, SELFPAY ==
[2018-05-08] VITALS (7 sets, daily range): BP systolic 103–125; BP diastolic 56–70; PULSE 71–78; RESP 16–18; TEMP 35.8–37; O2SAT 94–98; BMI 44.4
--- NOTE | 2018-05-08 07:05 | PCM.DC.ORTHO ---
Discharge Activity: Return to Normal Activity, May not drive while taking narcotic pain medications., May Shower May resume sexual activity in: No Restrictions Ice area for (Minutes): 20 Weight Bearing Status: Weight bearing as tolerated Additional Activity Instructions:: Activity as tolerated. Work on aggressive flexion to the knee. Allergies/Adverse Reactions: Allergies No Known Allergies Allergy (Verified 05/04/18 13:30) Medications to take at Discharge Hydrochlorothiazide [Hctz] 25 mg PO DAILY 09/28/17 Venlafaxine XR [Effexor Xr] 75 mg PO DAILY 09/28/17 Venlafaxine XR [Effexor Xr] 150 mg PO DAILY 09/28/17 Oxybutynin [Ditropan] 10 mg PO DAILY 01/19/18 Gabapentin [Neurontin] 300 mg PO BID 01/20/18 Metoprolol Tartrate 50 mg PO DAILY 01/20/18 Albuterol Inhaler [Ventolin Hfa] 2 puff INHALATION Q6H PRN PRN #1 inhaler 01/29/18 Diclofenac [Voltaren] 75 mg PO BIDCM 05/04/18 Escitalopram Oxalate [Lexapro] 20 mg PO DAILY 05/04/18 Aspirin E.C. [Ecotrin] 325 mg PO BID #30 tab 05/08/18 Docusate Sodium [Colace] 100 mg PO BID PRN PRN #10 cap 05/08/18 Hydrocodone Bitart/Apap 5-325 [Alpha 5/325] 1 - 2 tablet PO Q6H PRN PRN #30 tablet 05/08/18 proMETHazine tablet [Phenergan] 25 mg PO Q4H PRN PRN #10 tab 05/08/18 The following prescriptions were given: proMETHazine tablet [Phenergan] 25 mg PO Q4H PRN PRN #10 tab PRN Reason: Nausea Hydrocodone Bitart/Apap 5-325 [Alpha 5/325] 1 - 2 tablet PO Q6H PRN PRN #30 tablet PRN Reason: Pain Docusate Sodium [Colace] 100 mg PO BID PRN PRN #10 cap PRN Reason: Constipation Aspirin E.C. [Ecotrin] 325 mg PO BID #30 tab Primary Care Physician: Citlalli Collazo,Out of [Primary Care Provider] - Please Follow Up With: Nathan Torres DO When: call [facility] for appt for 2 weeks Proposed Discharge Date: 05/08/18
--- NOTE | 2018-05-08 08:55 | PCM.OPRPT ---
Report of Operation Date of Procedure: 05/08/18 Pre-Operative Diagnosis: Left knee stiffness status post bilateral total knee arthroplasties Post-Operative Diagnosis: Same as above Surgery/Procedure Performed:: Left knee manipulation under anesthesia Description of Surgical Findings:: 62-year-old female with a history of bilateral total knee arthroplasties. Patient had some residual stiffness to the left knee despite physical therapy and I counseled the patient to make an attempt at manipulation or anesthesia. Patient was counseled about the risks and benefits and whether not we would gain very much motion issues around 3 months out from total surgery. Patient was subsequently consented for the aforementioned procedure. She is met in the holding area with a left lower extremity was marked and identified by the orthopedic surgeon. Patient was taken the operating room in satisfactory condition with somewhat to place to identify patient operative procedure and limb. Patient did not receive any preoperative antibiotics. Patient underwent a LMA anesthesia. Patient's preoperative range of motion was roughly 0? of extension to about 95? of knee flexion. Using gentle manipulation with my hand on the proximal tibia and the hip bent to 90? the knee was gently bent down over 3-4 minutes of gentle compression to roughly 120? of knee flexion. Residual rebound was to about 115. Patient's extensor mechanism grossly felt intact through gentle palpation through medial lateral translation. Patient remained otherwise ligamentously stable. There was no obvious crepitus to the proximal tibia or femur through the range of motion. Upon completion of the manipulation the patient was then returned to recovery room in satisfactory condition. Patient will start outpatient physical therapy in a few days. Patient has been encouraged to continue with aggressive range of motion at home. Any major issues please contact me. We had no drains or complications no implants. Type of Anesthesia:: General Grafts/Implants Used: None - Complications None - Admit VTE Documentation VTE Present on Admission: No VTE Mechan Device Prophylaxis: SCD's VTE Pharm Prophylaxis ordered?: No Reason prophylaxis not ordered:: Treatment Not Indicated
[2018-05-08] MEDS: Ketorolac 15 MG/ML Vial IV (09:55)
[2018-05-08] MEDS: HYDROcodone Bitartrate/Apap 5/325 Tablet PO (10:42)
== END 2018-05-08 11:08 | disposition home or self-care (01) ==
LOC: SDC 06:36 → AC 06:37
PROVIDERS: Visit Provider Orthopaedic Surgery
PROC: (CPT 27570; principal; 2018-05-08 08:15)
DX: M25.662 Stiffness of left knee, not elsewhere classified (principal); M25.661 Stiffness of right knee, not elsewhere classified; M17.0 Bilateral primary osteoarthritis of knee; Z96.653 Presence of artificial knee joint, bilateral; I49.9 Cardiac arrhythmia, unspecified; I10 Essential (primary) hypertension; F32.9 Major depressive disorder, single episode, unspecified; Z79.82 Long term (current) use of aspirin; Z79.899 Other long term (current) drug therapy; Z87.891 Personal history of nicotine dependence
CPT/HCPCS: 27570; J7120; J2405

== ENCOUNTER → 2018-07-10 09:21 | Outpatient (CLI) | payer MEDICARE, MEDICAID, SELFPAY | PROVIDERS: Visit Provider Orthopaedic Surgery | DX: M47.896 Other spondylosis, lumbar region (principal); M48.07 Spinal stenosis, lumbosacral region | CPT/HCPCS: 72110 ==

== ENCOUNTER → 2019-04-26 15:04 | Outpatient (CLI) | payer MEDICARE, MEDICAID, SELFPAY ==
[2018-05-08 06:58] VITALS: BMI 44.4
[2019-04-26 15:07] LABS: Bacteria 0 SEEN /hpf (None Seen); Mucous, Urine 0 SEEN /hpf (<or=2+); Squamous Epithelial Cells - UA 0 SEEN /hpf (5-10)
[2019-04-26 17:36] LABS: Absolute Lymphocyte Count 3.36 X10^3/ul (0.83-4.51); Absolute Neutrophil Count 6.4 X10^3/uL (2.0-7.7); Basophil# 0.03 X10^3/uL; Basophil% 0.3 % (0-1); Eosinophil# 0.25 X10^3/uL; Eosinophils% 2.3 % (0-5); Hematocrit 39.7 % (37-47); Hemoglobin 12.6 g/dl (12.0-15.0); Lymphocyte # 3.36 X10^3/ul (4.0); Lymphocyte % 30.6 % (19-41); Mean Corp Hgb Conc 31.7 g/gl (32-36); Mean Corpuscular Hgb 29.3 pg (27.0-32.0); Mean Corpuscular Volume 92.3 fL (81-99); Mean Platelet Vol. 10.6 fl (6.2-12.0); Monocyte% 8.2 % (0-10); Neutrophil # 6.42 X10^3/uL (2.7-7.7); Neutrophil % 58.3 % (47-70); POSITIVE COUNT NO; POSITIVE DIFFERENTIAL NO; POSITIVE MORPHOLOGY NO; Platelet Count 285 K/mm3 (150-450); RBC Distribution Width CV 14.4 % (11.6-14.6); RBC Distribution Width SD 48.4 fl (35.1-43.9)
[2019-04-26 17:37] LABS: Color, Urine Yellow (Yellow); Glucose, Dipstick Normal (Normal); Ketone-Dipstick 5 mg/dl (Negative); Leukocyte Esterase-Dipstick 25 /ul (Negative); Nitrite-Dipstick Negative (Negative); Occult Blood-Urine 10 /ul (Negative); Protein-Dipstick 15 mg/dl (Negative); Urine Clarity Clear (Clear); Urine Urobilinogen 1 mg/dl (Normal)
[2019-04-26 17:38] LABS: Urine Bilirubin Dipstick 1 mg/dL (Negative)
[2019-04-26 18:00] LABS: ALB/GLOB Ratio 0.8 RATIO (0.9-2.4); AST(SGOT) 10 U/L (15-37); Alanine Aminotransfer ALT/SGPT 23 U/L (13-56); Albumin, Serum 3.3 g/dL (3.2-5.0); Alkaline Phosphatase 100 U/L (45-117); Anion Gap 9 (5-15); BUN 20 mg/dL (7-18); BUN/Creat Ratio 30.1 RATIO (10-20); Calcium,Total 9.7 mg/dL (8.5-10.1); Chloride 106 mmol/L (98-107); Cholesterol 210 mg/dL (200); Creatinine, Serum 0.66 mg/dL (0.55-1.02); EST Glomerular Filtration Rate 95 mL/min (>60); Est Glom Filt Rate - Afr Amer 114 mL/min (>60); Glucose 93 mg/dL (74-106); High Density Lipoprotein 70 mg/dL; Potassium 3.7 mmol/L (3.5-5.1); Protein, Total 7.3 g/dL (6.4-8.2); Sodium Level 144 mmol/L (136-145); T4 Free Direct 1.23 ng/dL (0.76-1.46); Thyroid Stim Hormone (TSH) 0.97 uIU/mL (0.358-3.74); Triglycerides 114 mg/dL; Very Low Density Lipoprotein 23 mg/dL (5-40)
[2019-04-26 18:06] LABS: Red Blood Cells-Urine 0-5 SEEN /hpf (0-5); White Blood Cells 0-5 SEEN /hpf (0-5)
== END ==
PROVIDERS: Family Provider Family Medicine; PCP Family Medicine; Referring Provider Family Medicine; Visit Provider Family Medicine
DX: I10 Essential (primary) hypertension (principal); E01.0 Iodine-deficiency related diffuse (endemic) goiter
CPT/HCPCS: 36415; 80053; 80061; 81001; 84439; 84443; 85025

== ENCOUNTER → 2019-05-03 11:13 | Outpatient (CLI) | payer MEDICARE, MEDICAID, SELFPAY ==
--- NOTE | 2019-05-03 11:21 | US_ITS ---
STUDY: THYROID ULTRASOUND REASON FOR EXAM: Female, 63 years old. Thyromegaly TECHNIQUE: Ultrasound evaluation of the thyroid was performed with real-time and static rene-scale imaging. COMPARISON: None. FINDINGS: RIGHT LOBE: The right lobe of the thyroid gland measures 5.6 x 2.3 x 2.0 cm. There is a homogeneous echotexture. There are no demonstrated solid, cystic or complex lesions. LEFT LOBE: The left lobe of the thyroid gland measures 6.2 x 3.2 x 2.5 cm. There is a homogeneous echotexture. There are 3 solid nodules in the left lobe of the thyroid measuring 2.3 x 2.2 x 1.3 cm, 2.8 x 2.4 x 2.0 cm and 1.1 x 1.0 x 1.0 cm. ISTHMUS: The isthmus measures 6 millimeter. The regional lymph nodes are normal. US/Thyroid IMPRESSION: 3 nodules in the left lobe of the thyroid with the largest measuring 2.8 x 2.4 x 2.2 cm. Solid a follow-up ultrasound in 6 months is recommended. Electronically Signed: Chauncey Be, at 19:35 EDT Tel , Service support ,
== END ==
PROVIDERS: Family Provider Family Medicine; PCP Family Medicine; Referring Provider Family Medicine; Visit Provider Family Medicine
DX: E01.0 Iodine-deficiency related diffuse (endemic) goiter (principal)
CPT/HCPCS: 76536

== ENCOUNTER → 2019-11-19 15:42 | Outpatient (CLI) | payer MEDICARE, MEDICAID, SELFPAY ==
[2018-05-08 06:58] VITALS: BMI 44.4
[2019-11-19 16:59] LABS: Cholesterol 173 mg/dL (200); High Density Lipoprotein 61 mg/dL; Triglycerides 140 mg/dL; Very Low Density Lipoprotein 28 mg/dL (5-40)
[2019-11-19 17:06] LABS: Hemoglobin A1c 5.6 % (4.2-6.3)
== END ==
PROVIDERS: Family Provider Family Medicine; PCP Family Medicine; Referring Provider Family Medicine Sports Medicine; Visit Provider Family Medicine Sports Medicine
DX: I10 Essential (primary) hypertension (principal); R73.03 Prediabetes
CPT/HCPCS: 80061; 83036

== ENCOUNTER → 2019-12-04 12:49 | Outpatient (CLI) | payer MEDICARE, MEDICAID, SELFPAY ==
[2018-05-08 06:58] VITALS: BMI 44.4
--- NOTE | 2019-12-04 14:25 | BRONCHALL_ITS ---
Bronchoprovocation Challenge - Bronchoprovocation Challenge Bronchoprovocation Challenge: BRONCHOPROVOCATION STUDY INTERPRETATION Brief HPI: Patient is a 64 year old black female, currently under the care of Mrs. Rose, who presents to [facility] for a bronchoprovocation study secondary to diagnosis of dyspnea. Respiratory therapist reports variable effort and reproducible results. Interpretation: Initial spirometry showed no large airways obstructive ventilatory defect. The patient was then given increasingly concentrated doses of methacholine in a stepwise fashion, using a modified ATS protocol. The patient?s maximum reduction in FEV1 was 24 percent predicted. The patient had a significant reduction in FEV1 by 24% and a calculated PD20 of 0.938. Impression: This study does show significant bronchial reactivity, in a range that is nonselective for asthma
== END ==
PROVIDERS: PCP Family Medicine
DX: R06.00 Dyspnea, unspecified (principal)
CPT/HCPCS: 94070; 95070; J3490; J7674

== ENCOUNTER 2023-04-30 12:04 | Emergency (ER) | payer MEDICARE, MEDICAID, SELFPAY ==
[2023-04-30 12:05] VITALS: BP 164/87; PULSE 72; RESP 16; TEMP 36.6; O2SAT 100; BMI 43.1
--- NOTE | 2023-04-30 12:24 | ED.VIS.DYS ---
HPI History of Present Illness Chief Complaint: Shortness of Breath Narrative Narrative: 67-year-old female presenting with shortness of breath. She reports this has been going on for about 3 months. Its been progressively getting worse. About a month ago she had some congestion and a cough and noted that her breathing got a little worse at that time. She never had a fever. She does not wear oxygen at baseline. She reports a history of asthma and CHF. She states her unit clerk did a catheterization on her in November and started on a new medicine she believes is Farxiga. She is not a very good informant. Patient states she has not seen her PCP or her unit clerk for this current bout of shortness of breath. She states he can walk about 100 feet or so which is not too bad. Her daughter notes that she was getting dressed this morning she could hear her breathing heavy. She states she last all a staking technician years ago which told her she had asthma. She does have albuterol which she is not using. She denies any chest pain but states she has developed some left shoulder pain. She has not had any trauma that she knows of. No falls. Her daughter states that she was concerned because her mother forgot a conversation that they had the other day about picking somebody up. She does not have a history of dementia per her daughter. [facility] Medical History Hypertension Home Medications hydrochlorothiazide 25 mg tablet 25 mg PO DAILY BP 09/28/17 [History Last Taken Unknown] venlafaxine 150 mg capsule,extended release 24 hr 150 mg PO DAILY ANXIETY 09/28/17 [History Last Taken Unknown] venlafaxine 75 mg capsule,extended release 24 hr 75 mg PO DAILY ANXIETY 09/28/17 [History Last Taken Unknown] oxybutynin chloride 5 mg tablet 10 mg PO DAILY Overactive bladder 01/19/18 [History Last Taken Unknown] gabapentin 300 mg capsule 300 mg PO BID NERVE PAIN 01/20/18 [History Last Taken Unknown] metoprolol tartrate 50 mg tablet 50 mg PO DAILY BLOOD PRESSURE 01/20/18 [History Last Taken 05/08/18 06:00] albuterol sulfate 90 mcg/actuation aerosol inhaler 2 puff inhalation Q6H PRN PRN SOB &/OR WHEEZING ##1 01/29/18 [Rx Last Taken 05/08/18 07:05] diclofenac sodium 75 mg tablet,delayed release 75 mg PO BIDCM inflamation 05/04/18 [History Last Taken 05/08/18 06:00] escitalopram oxalate 20 mg tablet 20 mg PO DAILY depression 05/04/18 [History Last Taken Unknown] aspirin 325 mg tablet,delayed release 325 mg PO BID #30 tabs 05/08/18 [Rx Last Taken Unknown] docusate sodium 100 mg capsule 100 mg PO BID PRN PRN Constipation #10 caps 05/08/18 [Rx Last Taken Unknown] hydrocodone-acetaminophen 5-325mg 5mg-325mg 1 - 2 tab PO Q6H PRN PRN Pain ##30 05/08/18 [Rx Last Taken Unknown] promethazine 25 mg tablet 25 mg PO Q4H PRN PRN Nausea #10 tabs 05/08/18 [Rx Last Taken Unknown] Allergy/AdvReac Type Severity Reaction Status Date / Time morphine Allergy Shortness Verified 04/30/23 12:07 of breath lisinopril AdvReac Upset Verified 04/30/23 12:07 Stomach Surgical History History of total bilateral knee replacement Social History Smoking Status: Never smoker ROS ROS ED Constitutional Constitutional ED: Denies chills, fever(s) or sweats Eyes Eyes: Denies blurry vision or change in vision ENT ENT ED: Denies ear pain or sore throat Cardiovascular Cardiovascular: Reports orthopnea; Denies chest pain, palpitations or racing heartbeat Respiratory/Chest Respiratory/Chest: Reports dyspnea, dyspnea on exertion and orthopnea Gastrointestinal Gastrointestinal: Denies abdominal pain, constipation, diarrhea, nausea or vomiting Genitourinary Genitourinary ED: Denies dysuria, hematuria or urinary frequency Musculoskeletal Musculoskeletal: Reports other Details: Left ; Denies arthralgias, myalgias or neck pain Integumentary Denies abscess, Abrasions or rash Neurologic Neurologic: Denies headache(s), paresthesias or weakness Psychiatric Psychiatric: Denies anxiety, depression, suicidal ideation or suicidal thoughts Endocrine Endocrinology: Denies polydipsia or polyuria EXAM Physical Exam Const Vital Signs: 04/30/23 12:05 04/30/23 12:39 04/30/23 14:35 Temperature 97.8 F Temperature Source Temporal Pulse Rate 72 62 Respiratory Rate 16 18 Blood Pressure 164/87 H 146/75 H Blood Pressure Mean 112 98 Pulse Ox 100 98 Oxygen Delivery Method Room Air Room Air Room Air Positive well nourished and obese General Appearance ED: NAD Nutritional Appearance: obese HEENT Reports moist mucous membranes atraumatic Eyes PERRL and EOMs intact bilaterally Resp normal respiratory effort and clear to auscultation bilaterally Auscultation: Negative for rales, rhonchi or wheezes Cardio regular rate and regular rhythm GI non-tender Extremity normal to inspection General Extremety ED: Negative for edema or tenderness General Extremity: Negative for edema Neuro oriented x3 and CN's II-XII intact bilaterally Sensorium / Orientation: alert Motor Exam: strength 5/5 throughout Psych mental status grossly normal Skin no wounds and skin turgor normal MDM MDM MDM Narrative Medical decision making narrative: Reviewed the patient's medical history on Clinisync did she has history of hypertension, degenerative disc disease, spinal stenosis, opioid dependence in remission, osteoarthritis, obesity class III, headaches, depression, overactive bladder, chronic shortness of breath, CHF, mitral regurg cardiomyopathy, asthma. Patient does not provide much medical history. She states she has had orthopnea for 6 months in the last 3 months she has been short of breath. She has not seen anybody over this timeframe including her unit clerk, her staking technician, her primary care physician. She did have an angiographically She is on Lasix which looks to be 80 mg once daily, Farxiga 10 mg daily, carvedilol 6.25 mg twice daily, Lipitor 10 mg daily, mirtazapine 50 mg daily, 20 mill equivalents of potassium 3 times daily, metolazone 2.5 mg once weekly. Aspirin 81 mg daily, spironolactone 25 mg daily, omeprazole 20 mg daily, Symbicort. Differential diagnosis at this point includes ACS, CHF, pneumonia, asthma exacerbation, dehydration, hyponatremia, hypokalemia, acute kidney injury, UTI,CBC to assess white blood cell count, hemoglobin, platelets, differential. BMP to assess renal function, electrolytes, glucose, anion gap. High-sensitivity troponin and EKG will be obtained in order to rule out ischemia and or pulmonary source. Urinalysis to assess for UTI. normal cardiac catheterization in November. CBC shows a normal hemoglobin. White blood cell count of 7.8. Platelets normal at 257. Creatinine normal at 0.81. Electrolytes within normal limits. High-sensitivity opponent is initially 6. BNP is 42.5. Urinalysis negative for infection. Chest x-ray on my interpretation shows no acute cardiopulmonary process. The radiologist interprets this and agrees. Patient was ambulated on pulse ox and started at 91% and ended at 91%. She tolerated this well. Discussed this with the patient and her family at the bedside. I recommended follow-up with cardiology and her primary care physician. Impression: 1. Dyspnea 2. Reviewed Lab Data Attestation: I reviewed the patient's lab results. Labs: Laboratory Results - last 24 hr 04/30/23 04/30/23 04/30/23 12:30 12:30 12:30 WBC 7.8 RBC 4.15 L Hgb 12.1 Hct 38.1 MCV 91.8 MCH 29.2 MCHC 31.8 L RDW Std Deviation 44.9 H RDW Coeff of Jessica 13.2 Plt Count 257 MPV 10.8 Immature Gran % (Auto) 0.500 Neut % (Auto) 53.4 Lymph % (Auto) 30.6 [place] % (Auto) 10.0 Eos % (Auto) 5.0 Baso % (Auto) 0.5 Absolute Neuts (auto) 4.1 Absolute Lymphs (auto) 2.38 Nucleated RBC % 0 Sodium 142 Potassium 4.0 Chloride 110 H Carbon Dioxide 30.0 Anion Gap 2 L BUN 11 Creatinine 0.81 Estim Creat Clear Calc 51.84 Est GFR (MDRD) Af Amer 90 Est GFR (MDRD) Non-Af 74 BUN/Creatinine Ratio 13.5 Glucose 102 Calcium 9.4 Troponin I High Sens 6 B-Natriuretic Peptide 42.5 Urine Color Urine Clarity Urine pH Ur Specific [place] Urine Protein Urine Glucose (UA) Urine Ketones Urine Occult Blood Urine Nitrite Urine Bilirubin Urine Urobilinogen Ur Leukocyte Esterase Urine RBC Urine WBC Ur Squamous Epith Cells Urine Bacteria Urine Mucus 04/30/23 14:13 WBC RBC Hgb Hct MCV MCH MCHC RDW Std Deviation RDW Coeff of Jessica Plt Count MPV Immature Gran % (Auto) Neut % (Auto) Lymph % (Auto) [place] % (Auto) Eos % (Auto) Baso % (Auto) Absolute Neuts (auto) Absolute Lymphs (auto) Nucleated RBC % Sodium Potassium Chloride Carbon Dioxide Anion Gap BUN Creatinine Estim Creat Clear Calc Est GFR (MDRD) Af Amer Est GFR (MDRD) Non-Af BUN/Creatinine Ratio Glucose Calcium Troponin I High Sens B-Natriuretic Peptide Urine Color Yellow Urine Clarity Clear Urine pH 6.5 Ur Specific [place] 1.010 Urine Protein 15 H Urine Glucose (UA) 1000 H Urine Ketones Negative Urine Occult Blood Negative Urine Nitrite Negative Urine Bilirubin Negative Urine Urobilinogen Normal Ur Leukocyte Esterase Negative Urine RBC 0 SEEN Urine WBC 0 SEEN Ur Squamous Epith Cells 0-5 SEEN Urine Bacteria 0 SEEN Urine Mucus 0 SEEN Radiography Diagnostic Testing: Clinical Impression(s) from Imaging Studies Chest X-Ray 04/30/23 12:46 IMPRESSION: Normal x-ray examination of the chest. Electronically Signed: Daniel Holbrook MD at 13:20 EDT Reading Location ID and State: [facility] / [place] Tel , Service support , Discharge Plan Triage Chief Complaint: Shortness of Breath ED Provider: Star Schwartz Dx/Rx/DC Orders Instructions: ED Dyspnea Prescriptions: No Action venlafaxine 75 MG capsule 75 mg PO DAILY venlafaxine 150 MG capsule 150 mg PO DAILY hydrochlorothiazide 25 MG tablet 25 mg PO DAILY oxybutynin chloride 5 MG tablet 10 mg PO DAILY metoprolol tartrate 50 MG tablet 50 mg PO DAILY gabapentin 300 MG capsule 300 mg PO BID albuterol sulfate 1 INHALER inhaler 2 puff INHALATION Q6H PRN PRN (Reason: SOB &/OR WHEEZING) Qty: 1 0RF escitalopram oxalate 20 MG tablet 20 mg PO DAILY diclofenac sodium 75 MG tablet 75 mg PO BIDCM aspirin 325 MG tablet 325 mg PO BID Qty: 30 0RF promethazine 25 MG tablet 25 mg PO Q4H PRN PRN (Reason: Nausea) Qty: 10 0RF docusate sodium 100 MG capsule 100 mg PO BID PRN PRN (Reason: Constipation) Qty: 10 0RF hydrocodone-acetaminophen 1 TABLET tablet 1 - 2 tab PO Q6H PRN PRN (Reason: Pain) Qty: 30 0RF Primary Care Provider: Gwen Rivera Referrals: Gwen Rivera MD [Primary Care Provider] - Disposition Disposition: Home, Self Care
[2023-04-30 12:45] LABS: Absolute Lymphocyte Count 2.38 X10^3/uL (0.83-4.51); Absolute Neutrophil Count 4.1 X10^3/uL (2.0-7.7); Basophil# 0.04 X10^3/uL; Basophil% 0.5 % (0-1); Eosinophil# 0.39 X10^3/uL; Hematocrit 38.1 % (37-47); Hemoglobin 12.1 g/dL (12.0-15.0); Lymphocyte # 2.38 X10^3/ul (0.83-4.51); Lymphocyte % 30.6 % (19-41); Mean Corp Hgb Conc 31.8 g/dL (32-36); Mean Corpuscular Hgb 29.2 pg (27.0-32.0); Mean Corpuscular Volume 91.8 fL (81-99); Mean Platelet Vol. 10.8 fl (6.2-12.0); Monocyte# 0.78 X10^3/uL; NRBC Flagged by Analyzer 0 % (0-5); Neutrophil # 4.14 X10^3/uL (2.7-7.7); Neutrophil % 53.4 % (47-70); Platelet Count 257 K/mm3 (150-450); RBC Distribution Width CV 13.2 % (11.6-14.6); RBC Distribution Width SD 44.9 fl (35.1-43.9); Red Blood Count 4.15 M/mm3 (4.2-5.4); White Blood Count 7.8 K/mm3 (4.4-11.0)
--- NOTE | 2023-04-30 12:46 | RAD_ITS ---
STUDY: X-RAY CHEST REASON FOR EXAM: Female, 67 years old. chest pain TECHNIQUE: Single AP portable view of the chest. COMPARISON: None. FINDINGS: The lungs are clear and expanded. There is no demonstrated pleural abnormality. Normal size heart. Normal mediastinum and navin. Normal visualized pulmonary arteries. Normal visualized aortic arch and descending thoracic aorta. Normal visualized thoracic spine. Normal visualized ribs, clavicles, and shoulders. There is no demonstrated abnormality of the visualized soft tissue structures of the upper abdomen. RAD/Chest 1 View (Portable) IMPRESSION: Normal x-ray examination of the chest. Electronically Signed: Daniel Holbrook MD at 13:20 EDT ,
[2023-04-30 13:04] LABS: BNP,B-Type NATRIURETIC PEPTIDE 42.5 pg/mL (0-100)
[2023-04-30 13:07] LABS: Anion Gap 2 (5-15); BUN 11 mg/dL (7-18); BUN/Creat Ratio 13.5 RATIO (10-20); Calcium,Total 9.4 mg/dL (8.5-10.1); Chloride 110 mmol/L (98-107); Creatinine, Serum 0.81 mg/dL (0.55-1.02); EST Glomerular Filtration Rate 74 mL/min (>60); Est Glom Filt Rate - Afr Amer 90 mL/min (>60); Estimated Creatinine Clearance 51.84 ml/min; Glucose 102 mg/dL (74-106); Sodium Level 142 mmol/L (136-145); Troponin-I HS 6 pg/mL (3.0-54.0)
[2023-04-30 14:08] VITALS: O2SAT 91
[2023-04-30 14:17] LABS: Bacteria 0 SEEN /hpf (None Seen); Mucous, Urine 0 SEEN /hpf (<or=2+); Red Blood Cells-Urine 0 SEEN /hpf (0-5); White Blood Cells 0 SEEN /hpf (0-5)
[2023-04-30 14:19] LABS: Color, Urine Yellow (Yellow); Glucose, Dipstick 1000 mg/dl (Normal); Ketone-Dipstick Negative (Negative); Leukocyte Esterase-Dipstick Negative /ul (Negative); Nitrite-Dipstick Negative (Negative); Occult Blood-Urine Negative /ul (Negative); Protein-Dipstick 15 mg/dl (Negative); Urine Bilirubin Dipstick Negative (Negative); Urine Clarity Clear (Clear); Urine Urobilinogen Normal (Normal); Urine pH 6.5 (5.0 - 8.0)
[2023-04-30 14:24] LABS: Squamous Epithelial Cells - UA 0-5 SEEN /hpf (5-10)
[2023-04-30 14:35] VITALS: BP 146/75; PULSE 62; RESP 18; O2SAT 98
== END 2023-04-30 16:53 | disposition home or self-care (01) ==
PROVIDERS: Emergency Provider Student in an Organized Health Care Education/Training Program; PCP Family Medicine Sports Medicine; Visit Provider Student in an Organized Health Care Education/Training Program
DX: R06.00 Dyspnea, unspecified (principal); I50.9 Heart failure, unspecified; E66.9 Obesity, unspecified
CPT/HCPCS: 71045; 80048; 81001; 83880; 84484; 85025; 93005; 99283

== ENCOUNTER 2024-05-22 11:31 | Emergency (ER) | payer MEDICAID, MEDICARE, SELFPAY ==
[2024-05-22 11:31] VITALS: BP 157/81; PULSE 78; RESP 18; TEMP 35.9; O2SAT 100
[2024-05-22 11:34] VITALS: BMI 39.9
[2024-05-22 12:27] LABS: Absolute Lymphocyte Count 2.03 X10^3/uL (0.83-4.51); Absolute Neutrophil Count 2.5 X10^3/uL (2.0-7.7); Basophil# 0.03 X10^3/uL; Basophil% 0.6 % (0-1); Eosinophil# 0.22 X10^3/uL; Eosinophils% 4.1 % (0-5); Hemoglobin 14.3 g/dL (12.0-15.0); Lymphocyte # 2.03 X10^3/ul (0.83-4.51); Lymphocyte % 38.2 % (19-41); Mean Corp Hgb Conc 32.5 g/dL (32-36); Mean Corpuscular Hgb 30.9 pg (27.0-32.0); Mean Platelet Vol. 10.4 fl (6.2-12.0); Monocyte# 0.48 X10^3/uL; NRBC Flagged by Analyzer 0 % (0-5); Neutrophil # 2.53 X10^3/uL (2.7-7.7); Neutrophil % 47.7 % (47-70); Platelet Count 209 K/mm3 (150-450); RBC Distribution Width CV 13.2 % (11.6-14.6); RBC Distribution Width SD 45.7 fl (35.1-43.9); Red Blood Count 4.63 M/mm3 (4.2-5.4); White Blood Count 5.3 K/mm3 (4.4-11.0)
[2024-05-22 12:31] VITALS: BP 144/75; PULSE 63; RESP 14; O2SAT 96
--- NOTE | 2024-05-22 12:38 | ED.RN ---
patient and family concerned for patient having increased dizziness for the past several weeks. patient states it feels like I am high all the time. denies any other complaints this time. however family did observe that patient has also been stumbling more often recently. unable to define how long this has been occuring.
[2024-05-22 12:41] LABS: Anion Gap 5 (5-15); BUN 10 mg/dL (7-18); BUN/Creat Ratio 12.2 RATIO (10-20); Calcium,Total 9.7 mg/dL (8.5-10.1); Chloride 110 mmol/L (98-107); Creatinine, Serum 0.82 mg/dL (0.55-1.02); EST Glomerular Filtration Rate 73 mL/min (>60); Est Glom Filt Rate - Afr Amer 88 mL/min (>60); Glucose 97 mg/dL (74-106); Potassium 3.8 mmol/L (3.5-5.1); Sodium Level 140 mmol/L (136-145)
--- NOTE | 2024-05-22 12:52 | EX.ED.VIS.PS ---
HPI HPI - Psych History of Present Illness Chief Complaint: Suicidal Informant: patient Onset/Context/Timing Onset: Today Context: Sudden Onset Timing: Continuous Worsened by: Situational factors Relieved by: Nothing Associated Symptoms Associated Symptoms - Psych: Positive for Depressed and Suicidal Thoughts; Negative for Visual Hallucinations or Auditory Hallucinations Specific plan (suicidal thought): No definite plan Narrative Narrative: Patient presents with depression and suicidal ideations that began today. Patient states she became upset due to certain situations at home. Patient states that she is planning on going to [place] for a conference for her charge. Patient states that she rented an air B&B. Patient states that a friend of hers was going to stay with her but had to cancel. Patient states she found a replacement who also had to cancel. This made the patient very upset and depressed. Patient states that she does not have a plan for suicide however, she states that if she were to stay at home much longer she would develop a plan for suicide and then go through with it. Family states that when they brought the patient to the emergency department she got weak in her legs. Family states that this is new. Family states patient normally does a lot of walking. Patient denies any chest pain or shortness of breath. Patient denies any nausea or vomiting. [facility] Medical History (Updated 05/22/24 @ 18:[address] Omar Madsen, DO) Congestive heart failure Depression Hypertension Home Medications ?Medication ?Instructions ?Recorded ?Last Taken ?Type carvedilol 6.25 mg tablet 6.25 mg PO BID 05/22/24 Unknown History empagliflozin 10 mg tablet 10 mg PO DAILY 05/22/24 Unknown History (Jardiance) furosemide 20 mg tablet 20 mg PO DAILY 05/22/24 Unknown History furosemide 80 mg tablet 80 mg PO BID 05/22/24 Unknown History omeprazole 20 mg capsule,delayed 20 mg PO DAILY 05/22/24 Unknown History release potassium chloride 20 mEq 20 meq PO TID 05/22/24 Unknown History tablet,extended release spironolactone 25 mg tablet 12.5 mg PO DAILY 05/22/24 Unknown History vilazodone 40 mg tablet 40 mg PO DAILY 05/22/24 Unknown History Allergy/AdvReac Type Severity Reaction Status Date / Time morphine Allergy Shortness Verified 05/22/24 11:31 of breath lisinopril AdvReac Upset Verified 05/22/24 11:31 Stomach Surgical History History of total bilateral knee replacement Social History Smoking Status: Never smoker ROS ROS ED Constitutional Constitutional ED: Denies chills or fever(s) Eyes Eyes: Denies blurry vision or change in vision ENT ENT ED: Denies rhinorrhea or sore throat Cardiovascular Cardiovascular: Denies chest pain or palpitations Respiratory/Chest Respiratory/Chest: Denies cough or dyspnea Gastrointestinal Gastrointestinal: Denies nausea or vomiting Genitourinary Genitourinary ED: Denies dysuria or hematuria Musculoskeletal Musculoskeletal: Denies back pain or neck pain Integumentary Denies abscess or rash Neurologic Neurologic: Reports weakness; Denies headache(s) Psychiatric Psychiatric: Reports depression, suicidal ideation and suicidal thoughts Allergic/Immunologic Allergic/Immunologic ED: Denies mouth swelling or urticaria EXAM Physical Exam Const Vital Signs: 05/22/24 11:31 05/22/24 12:31 05/22/24 12:37 Temperature 96.7 F L Temperature Source Temporal Pulse Rate 78 63 Respiratory Rate 18 14 Respiratory Effort Normal Respiratory Pattern Normal Blood Pressure 157/81 H 144/75 H Blood Pressure Mean 106 98 Pulse Ox 100 96 Oxygen Delivery Method Room Air Room Air 05/22/24 13:22 05/22/24 17:22 Temperature 97.9 F Temperature Source Oral Pulse Rate 63 83 Respiratory Rate 15 17 Respiratory Effort Respiratory Pattern Blood Pressure 140/74 H 126/73 H Blood Pressure Mean 96 90 Pulse Ox 97 97 Oxygen Delivery Method Room Air Room Air Positive well nourished and well developed General Appearance ED: well developed and NAD HEENT Reports moist mucous membranes Neck supple and no JVD Resp normal respiratory effort and clear to auscultation bilaterally Cardio Rate: regular rate Rhythm: regular rhythm GI non-tender and non-distended Palpation: soft Neuro oriented x3, CN's II-XII intact bilaterally and no sensory deficits noted Brien Coma Scale: document GCS findings Spontaneous Obeys Commands Oriented 15 Sensorium / Orientation: alert Psych Appearance: grossly normal Attitude: calm Activity / Motor Behavior: avoids eye contact Speech: minimal Mood & Affect: depressed and flat affect Thought Content: suicidality, No homicidality, No delusion(s) and No hallucination(s) MDM MDM MDM Narrative Medical decision making narrative: Differential diagnosis includes depression, suicidal ideation, stroke, electrolyte abnormality, anemia, urinary tract infection, and general weakness. She states CBC will be obtained to assess for leukocytosis and anemia. Basic metabolic profile will be obtained to assess for electrolyte abnormality and renal function. Urinalysis will be obtained to assess for urinary tract infection and hematuria. CT scan of the brain will be obtained to assess for intracranial bleeding and mass. Urine tox screen will be obtained to assess for substance abuse. Serum alcohol level will be obtained to assess for alcohol intoxication. Lab Data Attestation: I reviewed the patient's lab results. Lab results narrative: CBC was reviewed and was within normal limits. Basic metabolic profile was reviewed and was within normal limits. Urine tox screen was reviewed and was negative. Serum alcohol level was reviewed and was less than 3.0. Urinalysis was reviewed. There is no evidence of urinary tract infection or hematuria. Labs: Laboratory Results - last 24 hr 05/22/24 05/22/24 05/22/24 12:09 12:58 15:39 WBC 5.3 RBC 4.63 Hgb 14.3 Hct 44.0 MCV 95.0 MCH 30.9 MCHC 32.5 RDW Std Deviation 45.7 H RDW Coeff of Jessica 13.2 Plt Count 209 MPV 10.4 Immature Gran % (Auto) 0.400 Neut % (Auto) 47.7 Lymph % (Auto) 38.2 [place] % (Auto) 9.0 Eos % (Auto) 4.1 Baso % (Auto) 0.6 Absolute Neuts (auto) 2.5 Absolute Lymphs (auto) 2.03 Nucleated RBC % 0 Sodium 140 Potassium 3.8 Chloride 110 H Carbon Dioxide 25.0 Anion Gap 5 BUN 10 Creatinine 0.82 Est GFR (MDRD) Af Amer 88 Est GFR (MDRD) Non-Af 73 BUN/Creatinine Ratio 12.2 Glucose 97 Calcium 9.7 Urine Color Yellow Urine Clarity Clear Urine pH 8.0 Ur Specific [place] 1.010 Urine Protein Negative Urine Glucose (UA) Normal Urine Ketones Negative Urine Occult Blood Negative Urine Nitrite Negative Urine Bilirubin Negative Urine Urobilinogen Normal Ur Leukocyte Esterase Negative Urine RBC 0 SEEN Urine WBC 0-5 SEEN Ur Squamous Epith Cells 0-5 SEEN Ur Transition Epith Cell 0-5 SEEN Urine Bacteria 1+ Urine Mucus 0 SEEN Urine Opiates Screen NEGATIVE Urine Methadone Screen NEGATIVE Ur Barbiturates Screen NEGATIVE Ur Phencyclidine Scrn NEGATIVE Ur Amphetamines Screen NEGATIVE MDMA (Ecstasy) Screen NEGATIVE U Benzodiazepines Scrn NEGATIVE Urine Cocaine Screen NEGATIVE U Cannabinoids Screen NEGATIVE Ur Drug Screen Comment Ethyl Alcohol < 3.0 Radiography Diagnostic Testing: Clinical Impression(s) from Imaging Studies Brain CT 05/22/24 14:56 IMPRESSION: Chronic involutional changes of the brain. Electronically Signed: Antony Gallo MD at 15:33 EDT , CT scan of the brain was obtained. There is no acute intracranial abnormality. This was interpreted by the radiologist and was also independently reviewed by myself. Management Discussion w/another healthcare provider: Behavioral health Treatment and Re-Evaluation Narrative: Patient is medically cleared. Crisis was in to evaluate the patient and felt the patient would benefit from inpatient treatment. She will attempt to place the patient in a psychiatric facility. Care of patient will be turned over the oncoming physician pending psychiatric placement. Discharge Plan Triage Chief Complaint: Suicidal ED Provider: Omar Madsen Dx/Rx/DC Orders Clinical Impression: Depression, Suicidal ideation Prescriptions: No Action omeprazole 20 mg capsule,delayed release(DR/EC) 20 mg PO DAILY potassium chloride 20 mEq tablet extended release 20 meq PO TID Jardiance 10 mg tablet 10 mg PO DAILY spironolactone 25 mg tablet 12.5 mg PO DAILY furosemide 80 mg tablet 80 mg PO BID furosemide 20 mg tablet 20 mg PO DAILY vilazodone 40 mg tablet 40 mg PO DAILY carvedilol 6.25 mg tablet 6.25 mg PO BID Rx Instructions: must administer with a meal/food Primary Care Provider: Gwen Rivera Referrals: Gwen Rivera MD [Primary Care Provider] - Print Language: Hungarian
[2024-05-22 13:06] LABS: Alcohol, Blood (Medical)-Serum < 3.0 mg/dL
[2024-05-22 13:22] VITALS: BP 140/74; PULSE 63; RESP 15; O2SAT 97
--- NOTE | 2024-05-22 13:40 | ED.RN ---
Yissel from crisis will be in
--- NOTE | 2024-05-22 14:14 | ED.RN ---
Yissel from crisis is here
[2024-05-22 14:19] LABS: Amphetamine Urine VISTA NEGATIVE (<1000 ng/mL); Barbiturate Urine VISTA NEGATIVE (< 200 ng/mL); Benzodiazepine Urine VISTA NEGATIVE (< 200 ng/mL); Cocaine Urine VISTA NEGATIVE (< 300 ng/mL); Ecstacy Urine VISTA NEGATIVE (< 500 ng/mL); Methadone Urine VISTA NEGATIVE (< 300 ng/mL); PCP Urine VISTA NEGATIVE (< 25 ng/mL); THC Urine VISTA NEGATIVE (< 50 ng/mL); Vista UDS pH Range 8
--- NOTE | 2024-05-22 14:56 | CT_ITS ---
STUDY: CT BRAIN WITHOUT CONTRAST REASON FOR EXAM: Female, 68 years old. Suicidal ideations. RADIATION DOSAGE (If Supplied By Facility): CTDIvol = ( 44.99 ) mGy, DLP = ( 796.11 ) mGycm TECHNIQUE: Transaxial CT imaging of the brain was performed without administration of intravenous contrast material. Individualized dose optimization techniques were used for this CT. COMPARISON: No relevant priors. FINDINGS: Normal soft tissue structures. Normal calvarium. There is mild cerebral atrophy with widening of the extra-axial spaces and ventricular dilatation. Normal white matter tracts of the cerebral hemispheres. There are small punctate calcifications of the basal ganglia which are seen in the aging brain as a normal variant. Normal brainstem. Normal cerebellum. There is no intracranial hemorrhage. There are no findings of an acute ischemic infarction. Atherosclerotic calcification of the cavernous portions of the internal carotid arteries bilaterally. Normal visualized paranasal sinuses. CT/Brain/Head without Contrast IMPRESSION: Chronic involutional changes of the brain. Electronically Signed: Antony Gallo MD at 15:33 EDT ,
[2024-05-22 15:43] LABS: Mucous, Urine 0 SEEN /hpf (<or=2+); Red Blood Cells-Urine 0 SEEN /hpf (0-5)
[2024-05-22 15:49] LABS: Color, Urine Yellow (Yellow); Glucose, Dipstick Normal (Normal); Ketone-Dipstick Negative (Negative); Leukocyte Esterase-Dipstick Negative /ul (Negative); Nitrite-Dipstick Negative (Negative); Occult Blood-Urine Negative /ul (Negative); Protein-Dipstick Negative (Negative); Urine Bilirubin Dipstick Negative (Negative); Urine Clarity Clear (Clear); Urine Urobilinogen Normal (Normal)
[2024-05-22 16:06] LABS: Squamous Epithelial Cells - UA 0-5 SEEN /hpf (5-10); Transitional Epithelial - Ur 0-5 SEEN /hpf (0-5); White Blood Cells 0-5 SEEN /hpf (0-5)
[2024-05-22 16:07] LABS: Bacteria 1+ /hpf (None Seen)
[2024-05-22 17:22] VITALS: BP 126/73; PULSE 83; RESP 17; TEMP 36.6; O2SAT 97
[2024-05-22 21:00] VITALS: BP 107/65; PULSE 71; RESP 18; TEMP 36.6; O2SAT 98
--- NOTE | 2024-05-22 21:50 | ED.RN ---
This RN called Sol her daughter (and has POA) in regards to transportation and behavioral health accepting. Sol was understanding and I answered all the questions.
[2024-05-23 01:15] VITALS: BP 131/62; PULSE 68; TEMP 35.9; O2SAT 98
[2024-05-23 05:17] VITALS: BP 106/76; PULSE 77; RESP 16; TEMP 36.3; O2SAT 96
--- NOTE | 2024-05-23 05:32 | ED.RN ---
This RN attempted to give the patient her night meds at 2300. The patient refused and stated she will take them in the morning. This RN educated her on the importance of her prescribed meds.
== END 2024-05-23 07:21 ==
PROVIDERS: Emergency Provider Emergency Medicine; PCP Family Medicine Sports Medicine; Visit Provider Emergency Medicine
DX: F32.A Depression, unspecified (principal); I11.0 Hypertensive heart disease with heart failure; I50.9 Heart failure, unspecified; R45.851 Suicidal ideations; Z79.899 Other long term (current) drug therapy
CPT/HCPCS: 70450; 80048; 80307; 81001; 82077; 85025; 99285; A4216